=== PATIENT | male | born 1960 | race Caucasian/White ===

== ENCOUNTER → 2019-12-07 11:34 | Outpatient (BNVA) | payer OTHER, SELFPAY | PROVIDERS: PCP Internal Medicine; Referring Provider Internal Medicine; Visit Provider Nurse Practitioner Gerontology | DX: E11.21 Type 2 diabetes mellitus with diabetic nephropathy (principal); Z79.4 Long term (current) use of insulin; R80.9 Proteinuria, unspecified; I10 Essential (primary) hypertension; E78.5 Hyperlipidemia, unspecified | CPT/HCPCS: 99213 ==

== ENCOUNTER 2019-12-21 09:51 | Outpatient (REF) | payer OTHER, SELFPAY ==
[2019-12-21 11:25] LABS: Anion Gap 13 (12-20); Blood Urea Nitrogen 20 mg/dL (9-16); Calcium 9.3 mg/dL (8.4-10.2); Carbon Dioxide 30 mmol/L (22-29); Chloride 101 mmol/L (96-108); Estimated Glomerular Filt Rate 53; Potassium 4.5 mmol/l (3.3-5.1); Sodium 139 mmol/L (135-145)
== END 2019-12-21 09:52 | disposition home or self-care (01) ==
LOC: HO.LAB 09:51
PROVIDERS: Visit Provider Internal Medicine Hypertension Specialist
DX: E11.22 Type 2 diabetes mellitus with diabetic chronic kidney disease (principal); I12.9 Hypertensive chronic kidney disease with stage 1 through stage 4 chronic kidney disease, or unspecified chronic kidney disease; N18.9 Chronic kidney disease, unspecified
CPT/HCPCS: 80051; 82310; 82565; 84520

== ENCOUNTER 2019-12-26 14:23 | Outpatient (REF) | payer OTHER, SELFPAY ==
--- NOTE | 2019-12-26 | US_ITS ---
EXAMINATION: US RETROPERITONEAL LIMITED (RENAL ONLY) CLINICAL INFORMATION: Proteinuria COMPARISON: None TECHNIQUE: Real-time imaging of the kidneys. FINDINGS: RIGHT KIDNEY: 10.9 x 5.6 x 5.1 cm (SAG x AP x TRV). The kidney is normal in size, contour, and echogenicity. Renal cortical thickness is normal. No calculi or focal parenchymal lesions. No hydronephrosis. LEFT KIDNEY: 10.5 x 6.5 x 4.7 cm (SAG x AP x TRV). The kidney is normal in size, contour, and echogenicity. Renal cortical thickness is normal. No calculi or focal parenchymal lesions. No hydronephrosis. ADDITIONAL FINDINGS: There is a gallstone in the gallbladder. US/US renal BI IMPRESSION: Normal renal ultrasound.
== END 2019-12-26 14:24 | disposition home or self-care (01) ==
LOC: HO.US 14:23
PROVIDERS: Visit Provider Internal Medicine Hypertension Specialist
DX: E11.9 Type 2 diabetes mellitus without complications (principal); R80.9 Proteinuria, unspecified
CPT/HCPCS: 76775

== ENCOUNTER → 2020-03-20 08:40 | Outpatient (BNVA) | payer OTHER, SELFPAY | PROVIDERS: PCP Internal Medicine; Visit Provider Nurse Practitioner Gerontology ==

== ENCOUNTER 2020-03-28 08:27 | Outpatient (REF) | payer OTHER, SELFPAY ==
[2020-03-28 09:49] LABS: Anion Gap 14 (12-20); Blood Urea Nitrogen 25 mg/dL (9-16); Calcium 9.1 mg/dL (8.4-10.2); Carbon Dioxide 29 mmol/L (22-29); Chloride 102 mmol/L (96-108); Estimated Glomerular Filt Rate 57; Potassium 4.5 mmol/l (3.3-5.1); Sodium 140 mmol/L (135-145)
== END 2020-03-28 08:28 | disposition home or self-care (01) ==
LOC: HO.LAB 08:27
PROVIDERS: PCP Internal Medicine; Referring Provider Internal Medicine Hypertension Specialist; Visit Provider Nurse Practitioner Gerontology
DX: E11.9 Type 2 diabetes mellitus without complications (principal); R80.9 Proteinuria, unspecified; I13.10 Hypertensive heart and chronic kidney disease without heart failure, with stage 1 through stage 4 chronic kidney disease, or unspecified chronic kidney disease
CPT/HCPCS: 36415; 80051; 82310; 82565; 84520

== ENCOUNTER → 2020-06-24 13:20 | Outpatient (BNVA) | payer OTHER, SELFPAY | PROVIDERS: PCP Internal Medicine; Visit Provider Nurse Practitioner Gerontology | DX: E11.29 Type 2 diabetes mellitus with other diabetic kidney complication (principal); I10 Essential (primary) hypertension; E78.5 Hyperlipidemia, unspecified; R80.9 Proteinuria, unspecified | CPT/HCPCS: 82947; 99212 ==

== ENCOUNTER 2020-08-02 07:27 | Outpatient (REF) | payer OTHER, SELFPAY ==
[2020-08-02 08:23] LABS: MANUAL DIFF FLAG NO
[2020-08-02 08:30] LABS: Basophils Percent Auto 0.5 % (0-2); Eosinophils Absolute Auto 0.3 X10*3/uL (0.0-0.4); Eosinophils Percent Auto 4.3 % (0-4); Hematocrit 40.2 % (42-52); Hemoglobin 13.2 g/dl (14.0-18.0); Imm Gran Abs Auto 0.01 X10*3/uL (0.00-0.03); Imm Gran Pct Auto 0.2 % (0.0-0.4); Lymphocytes Absolute Auto 2.3 X10*3/uL (1.2-4.9); Lymphocytes Percent Auto 40.2 % (20-40); Mean Corpuscular HGB Conc 32.8 g/dl (31.0-36.0); Mean Corpuscular Hemoglobin 29.9 pg (27.0-33.0); Mean Platelet Volume 12.1 fL (9.4-12.4); Monocytes Absolute Auto 0.7 X10*3/uL (0.1-1.2); Monocytes Percent Auto 11.4 % (2-11); Neutrophils Absolute Auto 2.5 X10*3/uL (2.0-8.3); Neutrophils Percent Auto 43.4 % (45-73); Platelet Count 254 X10*3/uL (160-400); Red Blood Count 4.42 X10*6/uL (4.60-5.80); White Blood Count 5.8 X10*3/uL (4.8-10.8)
[2020-08-02 08:45] LABS: Estimated Average Glucose 166 mg/dL; Hemoglobin A1c % 7.4 %
[2020-08-02 08:46] LABS: Alanine Aminotransferase 24 U/L (0-40); Albumin Level 4.1 g/dL (3.5-5.0); Alkaline Phosphatase 88 U/L (39-117); Anion Gap 14 (12-20); Aspartate Amino Transferase 19 U/L (5-37); Bilirubin Total 0.4 mg/dL (0.0-1.0); Blood Urea Nitrogen 32 mg/dL (9-16); Calcium 9.8 mg/dL (8.4-10.2); Carbon Dioxide 27 mmol/L (22-29); Chloride 103 mmol/L (96-108); Cholesterol 182 mg/dL; Estimated Glomerular Filt Rate 36; Glucose Fasting 184 mg/dL (60-99); HDL Cholesterol 33 mg/dL; Potassium 4.8 mmol/L (3.3-5.1); Sodium 139 mmol/L (135-145); Total Protein 7.2 g/dL (6.5-8.0); Triglycerides 406 mg/dL
== END 2020-08-02 07:28 | disposition home or self-care (01) ==
LOC: HO.LAB 07:27
PROVIDERS: Nurse Practitioner Family; Nurse Practitioner Gerontology; PCP Internal Medicine; Visit Provider Internal Medicine
DX: Z01.818 Encounter for other preprocedural examination (principal); E78.5 Hyperlipidemia, unspecified; E11.29 Type 2 diabetes mellitus with other diabetic kidney complication
CPT/HCPCS: 36415; 80053; 80061; 83036; 85025

== ENCOUNTER → 2020-10-23 14:53 | Outpatient (BNVA) | payer OTHER, SELFPAY | PROVIDERS: PCP Internal Medicine; Visit Provider Nurse Practitioner Gerontology | DX: E11.29 Type 2 diabetes mellitus with other diabetic kidney complication (principal); E78.5 Hyperlipidemia, unspecified; I10 Essential (primary) hypertension; R80.9 Proteinuria, unspecified | CPT/HCPCS: 82947; 99212 ==

== ENCOUNTER 2020-11-07 08:23 | Outpatient (REF) | payer OTHER, SELFPAY ==
[2020-11-07 08:54] LABS: MANUAL DIFF FLAG NO
[2020-11-07 08:57] LABS: Basophils Percent Auto 0.5 % (0-2); Eosinophils Absolute Auto 0.3 X10*3/uL (0.0-0.4); Eosinophils Percent Auto 4.8 % (0-4); Hematocrit 41.3 % (42-52); Hemoglobin 13.5 g/dl (14.0-18.0); Imm Gran Abs Auto 0.02 X10*3/uL (0.00-0.03); Imm Gran Pct Auto 0.3 % (0.0-0.4); Lymphocytes Percent Auto 33.4 % (20-40); Mean Corpuscular HGB Conc 32.7 g/dl (31.0-36.0); Mean Corpuscular Hemoglobin 29.9 pg (27.0-33.0); Mean Corpuscular Volume 91.6 fL (80-98); Mean Platelet Volume 12.1 fL (9.4-12.4); Monocytes Absolute Auto 0.6 X10*3/uL (0.1-1.2); Monocytes Percent Auto 10.2 % (2-11); Neutrophils Absolute Auto 3.1 X10*3/uL (2.0-8.3); Neutrophils Percent Auto 50.8 % (45-73); Platelet Count 251 X10*3/uL (160-400); Red Blood Count 4.51 X10*6/uL (4.60-5.80); Red Cell Distribution Width 13.3 % (11.0-16.0); White Blood Count 6.1 X10*3/uL (4.8-10.8)
[2020-11-07 09:20] LABS: Creatinine Urine 53.29 mg/dL; Microalbum/Creatinine Ratio Ur 170.7 ug/mg cr
[2020-11-07 09:22] LABS: Alanine Aminotransferase 19 U/L (0-40); Albumin Level 4.1 g/dL (3.5-5.0); Alkaline Phosphatase 74 U/L (39-117); Anion Gap 12 (12-20); Aspartate Amino Transferase 19 U/L (5-37); Bilirubin Total 0.4 mg/dL (0.0-1.0); Blood Urea Nitrogen 28 mg/dL (9-16); Calcium 9.6 mg/dL (8.4-10.2); Carbon Dioxide 27 mmol/L (22-29); Chloride 105 mmol/L (96-108); Cholesterol 189 mg/dL; Estimated Glomerular Filt Rate 37; Glucose Random 198 mg/dL (60-115); HDL Cholesterol 26 mg/dL; Potassium 4.7 mmol/L (3.3-5.1); Sodium 139 mmol/L (135-145); Total Protein 6.9 g/dL (6.5-8.0); Triglycerides 417 mg/dL
[2020-11-11 13:01] LABS: Vitamin D 25-OH, D2 <4 ng/mL; Vitamin D 25-OH, D3 18 ng/mL; Vitamin D 25-OH, Total 18 ng/mL (30-100)
== END 2020-11-07 08:24 | disposition home or self-care (01) ==
LOC: HO.LAB 08:23
PROVIDERS: PCP Internal Medicine; Visit Provider Internal Medicine
DX: E11.29 Type 2 diabetes mellitus with other diabetic kidney complication (principal); D64.9 Anemia, unspecified; E78.5 Hyperlipidemia, unspecified; E55.9 Vitamin D deficiency, unspecified
CPT/HCPCS: 36415; 80053; 80061; 82043; 82306; 85025

== ENCOUNTER → 2021-03-04 14:28 | Outpatient (BNVA) | payer OTHER, SELFPAY | PROVIDERS: PCP Internal Medicine; Visit Provider Nurse Practitioner Gerontology | DX: E11.29 Type 2 diabetes mellitus with other diabetic kidney complication (principal); R80.9 Proteinuria, unspecified; I10 Essential (primary) hypertension; E78.5 Hyperlipidemia, unspecified | CPT/HCPCS: 82947; 83036; 99212 ==

== ENCOUNTER 2021-03-20 10:14 | Outpatient (REF) | payer OTHER, SELFPAY ==
[2021-03-20 10:39] LABS: MANUAL DIFF FLAG NO
[2021-03-20 11:10] LABS: Basophils Percent Auto 0.7 % (0-2); Eosinophils Absolute Auto 0.3 X10*3/uL (0.0-0.4); Eosinophils Percent Auto 5.4 % (0-4); Hematocrit 39.1 % (42.0-52.0); Hemoglobin 12.5 g/dl (14.0-18.0); Imm Gran Abs Auto 0.01 X10*3/uL (0.00-0.03); Imm Gran Pct Auto 0.2 % (0.0-0.4); Lymphocytes Absolute Auto 2.1 X10*3/uL (1.2-4.9); Lymphocytes Percent Auto 38.7 % (20-40); Mean Corpuscular Hemoglobin 29.6 pg (27.0-33.0); Mean Corpuscular Volume 92.7 fL (80.0-98.0); Mean Platelet Volume 11.8 fL (9.4-12.4); Monocytes Absolute Auto 0.6 X10*3/uL (0.1-1.2); Monocytes Percent Auto 11.2 % (2-11); Neutrophils Absolute Auto 2.3 x10*3/uL (2.0-8.3); Neutrophils Percent Auto 43.8 % (45-73); Platelet Count 284 X10*3/uL (160-400); Red Blood Count 4.22 X10*6/uL (4.60-5.80); White Blood Count 5.4 X10*3/uL (4.8-10.8)
[2021-03-20 11:59] LABS: Alanine Aminotransferase 17 U/L (0-40); Albumin Level 4.2 g/dL (3.5-5.0); Alkaline Phosphatase 65 U/L (39-117); Anion Gap 12 (12-20); Aspartate Amino Transferase 18 U/L (5-37); Bilirubin Total 0.5 mg/dL (0.0-1.0); Blood Urea Nitrogen 41 mg/dL (9-16); Calcium 9.9 mg/dL (8.4-10.2); Carbon Dioxide 27 mmol/L (22-29); Chloride 106 mmol/L (96-108); Cholesterol 199 mg/dL; Estimated Glomerular Filt Rate 34; Glucose Fasting 138 mg/dL (60-99); HDL Cholesterol 32 mg/dL; LDL Cholesterol Calculated 136 mg/dl; Potassium 4.5 mmol/L (3.3-5.1); Sodium 140 mmol/L (135-145); Total Protein 7.4 g/dL (6.5-8.0); Triglycerides 159 mg/dL
[2021-03-20 12:09] LABS: Creatinine Urine 162.38 mg/dL; Microalbum/Creatinine Ratio Ur 125.6 ug/mg cr
== END 2021-03-20 10:15 | disposition home or self-care (01) ==
LOC: HO.LAB 10:14
PROVIDERS: PCP Internal Medicine; Visit Provider Internal Medicine
DX: E11.29 Type 2 diabetes mellitus with other diabetic kidney complication (principal); E78.5 Hyperlipidemia, unspecified; D64.9 Anemia, unspecified
CPT/HCPCS: 36415; 80053; 80061; 82043; 85025

== ENCOUNTER 2021-08-04 07:05 | Outpatient (REF) | payer OTHER, SELFPAY ==
[2021-08-04 08:46] LABS: Alanine Aminotransferase 26 U/L (0-40); Albumin Level 4.3 g/dL (3.5-5.0); Alkaline Phosphatase 58 U/L (39-117); Anion Gap 14 (12-20); Aspartate Amino Transferase 34 U/L (5-37); Bilirubin Total 0.5 mg/dL (0.0-1.0); Blood Urea Nitrogen 39 mg/dL (9-16); Calcium 9.8 mg/dL (8.4-10.2); Carbon Dioxide 24 mmol/L (22-29); Chloride 106 mmol/L (96-108); Cholesterol 146 mg/dL; Estimated Glomerular Filt Rate 37; Glucose Fasting 90 mg/dL (60-99); HDL Cholesterol 35 mg/dL; LDL Cholesterol Calculated 89 mg/dl; Potassium 5.1 mmol/L (3.3-5.1); Sodium 139 mmol/L (135-145); Total Protein 7.3 g/dL (6.5-8.0); Triglycerides 112 mg/dL
[2021-08-04 09:01] LABS: Creatinine Urine 81.45 mg/dL; Microalbum/Creatinine Ratio Ur 125.2 ug/mg cr
== END 2021-08-04 07:06 | disposition home or self-care (01) ==
LOC: HO.LAB 07:05
PROVIDERS: PCP Internal Medicine; Visit Provider Internal Medicine
DX: E11.29 Type 2 diabetes mellitus with other diabetic kidney complication (principal); E78.5 Hyperlipidemia, unspecified
CPT/HCPCS: 36415; 80053; 80061; 82043

== ENCOUNTER → 2022-02-11 07:50 | Outpatient (REF) | payer OTHER, SELFPAY ==
--- NOTE | ~2022-02-11 | XR_ITS ---
EXAMINATION: XR CHEST CLINICAL INFORMATION: Dyspnea COMPARISON: Previous chest x-ray most recent December 2018 TECHNIQUE: 2 views of the chest were obtained. FINDINGS: The cardiac and mediastinal contours are stable. There are post-CABG changes. The lungs are clear. No pleural effusion or pneumothorax. Degenerative changes of the spine. Median sternotomy wires. XR/XR chest 2V IMPRESSION: No evidence for acute disease in the chest.
--- NOTE | ~2022-02-11 | XR_ITS ---
EXAMINATION: XR CERVICAL SPINE CLINICAL INFORMATION: Neck pain COMPARISON: None TECHNIQUE: 3 views of the cervical spine were obtained. FINDINGS: There is curvature of the lower cervical and upper thoracic spine to the left. Bone alignment is otherwise normal. No fracture or dislocation. Multilevel degenerative spondylosis from C4-C5 to C6-C7. Normal disc spaces. Normal prevertebral soft tissues. XR/XR cervical spine 3V IMPRESSION: Degenerative changes.
--- NOTE | 2022-02-11 07:55 | ECG_ITS ---
Test Reason : PRE OP Blood Pressure : / mmHG Vent. Rate : 066 BPM Atrial Rate : 066 BPM P-R Int : 180 ms QRS Dur : 094 ms QT Int : 410 ms P-R-T Axes : 063 -02 062 degrees QTc Int : 429 ms Normal sinus rhythm Inferior infarct , age undetermined Abnormal ECG When compared with ECG of 10-JUN-2015 22:19, Inferior infarct is now Present Nonspecific T wave abnormality, worse in Anterolateral leads Referred By: Edilia Banks Electronically Signed By:HEATHER NICHOLSON
[2022-02-11 08:07] LABS: MANUAL DIFF FLAG NO
[2022-02-11 08:17] LABS: Basophils Percent Auto 0.7 % (0-2); Eosinophils Absolute Auto 0.2 X10*3/uL (0.0-0.4); Eosinophils Percent Auto 3.9 % (0-4); Hematocrit 39.9 % (42.0-52.0); Imm Gran Abs Auto 0.01 X10*3/uL (0.00-0.03); Imm Gran Pct Auto 0.2 % (0.0-0.4); Lymphocytes Absolute Auto 2.8 X10*3/uL (1.2-4.9); Lymphocytes Percent Auto 49.3 % (20-40); Mean Corpuscular HGB Conc 32.6 g/dl (31.0-36.0); Mean Corpuscular Hemoglobin 29.8 pg (27.0-33.0); Mean Corpuscular Volume 91.5 fL (80.0-98.0); Mean Platelet Volume 11.5 fL (9.4-12.4); Monocytes Absolute Auto 0.6 X10*3/uL (0.1-1.2); Monocytes Percent Auto 11.3 % (2-11); Neutrophils Absolute Auto 1.9 x10*3/uL (2.0-8.3); Neutrophils Percent Auto 34.6 % (45-73); Platelet Count 246 X10*3/uL (160-400); Red Blood Count 4.36 X10*6/uL (4.60-5.80); Red Cell Distribution Width 13.4 % (11.0-16.0); White Blood Count 5.6 X10*3/uL (4.8-10.8)
[2022-02-11 09:09] LABS: Alanine Aminotransferase 19 U/L (0-40); Albumin Level 4.2 g/dL (3.5-5.0); Alkaline Phosphatase 88 U/L (39-117); Anion Gap 13 (12-20); Aspartate Amino Transferase 18 U/L (5-37); Bilirubin Total 0.3 mg/dL (0.0-1.0); Blood Urea Nitrogen 35 mg/dL (9-16); Calcium 9.4 mg/dL (8.4-10.2); Carbon Dioxide 26 mmol/L (22-29); Chloride 108 mmol/L (96-108); Cholesterol 174 mg/dL; Estimated Glomerular Filt Rate 33; Glucose Fasting 163 mg/dL (60-99); HDL Cholesterol 31 mg/dL; LDL Cholesterol Calculated 90 mg/dl; Potassium 4.5 mmol/L (3.3-5.1); Sodium 142 mmol/L (135-145); Triglycerides 268 mg/dL; Vitamin D 25-OH Total 19.2 ng/mL (>30)
[2022-02-11 09:55] LABS: Creatinine Urine 182.14 mg/dL; Microalbum/Creatinine Ratio Ur 110.9 ug/mg cr
== END ==
LOC: HO.CARD 07:50
PROVIDERS: PCP Internal Medicine; Visit Provider Internal Medicine
DX: Z01.818 Encounter for other preprocedural examination (principal); E78.5 Hyperlipidemia, unspecified; E11.9 Type 2 diabetes mellitus without complications; E55.9 Vitamin D deficiency, unspecified; D64.9 Anemia, unspecified; I21.3 ST elevation (STEMI) myocardial infarction of unspecified site; N18.32 Chronic kidney disease, stage 3b; M54.2 Cervicalgia
CPT/HCPCS: 36415; 71046; 72040; 80053; 80061; 82043; 82306; 85025; 93005

== ENCOUNTER → 2022-02-24 13:39 | Outpatient (BNVA) | payer OTHER, SELFPAY | PROVIDERS: PCP Internal Medicine; Visit Provider Internal Medicine | DX: Z01.810 Encounter for preprocedural cardiovascular examination (principal); I25.10 Atherosclerotic heart disease of native coronary artery without angina pectoris; I21.3 ST elevation (STEMI) myocardial infarction of unspecified site; I25.5 Ischemic cardiomyopathy; I10 Essential (primary) hypertension; E11.29 Type 2 diabetes mellitus with other diabetic kidney complication; Z87.891 Personal history of nicotine dependence; Z98.890 Other specified postprocedural states; Z95.1 Presence of aortocoronary bypass graft | CPT/HCPCS: 99202 ==

== ENCOUNTER → 2022-02-27 08:26 | Outpatient (REF) | payer OTHER, SELFPAY ==
--- NOTE | 2022-02-27 08:29 | CA_ITS ---
Transthoracic Echocardiogram Patient (Last, First, Middle): Hang Fowler J Gender: Male Date of : 1960 Age: 61 Procedure Date: 02/27/2022 Procedure Type: Transthoracic Echocardiogram Location: OP Height: 165.1 cm Weight: 79.38 kg BSA: 1.87 m2 Heart Rate: bpm BP: 122 / 60 mmHg Pharmacy Coordinator: Referring MD: Cosmo Del Cid MD Supervisor [employer]: Tahir Bravo MD Symptoms: I25.10 - Atherosclerotic heart disease of [place] coronary artery without... Study Quality: Adequate with Contrast ECG Rhythm: Sinus Conclusions: - 1. Normal LV systolic function with impaired relaxation filling pattern with suggestion of wall motion abnormality consistent underlying coronary artery disease 2. Mildly dilated right ventricle with reduced RV systolic function 3. Normal cardiac valvular Doppler 4. Normal RV systolic pressure 5. No gross pericardial effusion Findings Procedure Information Contrast agent, definity, is being given per protocol without apparent complications. Left Ventricle Normal left ventricular size, thickness, and systolic function. The visually estimated ejection fraction is between 60-65%. Spectral Doppler is indicative of an impaired relaxation filling pattern. Wall Motion Rest Echo Findings The basal inferior and basal inferoseptal segments are akinetic. All other scored wall segments showed normal motion. Right Ventricle Mildly increased right ventricular cavity size. There is mild to moderately decreased right ventricular systolic function. Atria The left atrium is normal in size. Interatrial shunt cannot be excluded. The right atrium was not well visualized. Aortic Valve The aortic valve structure and function is likely normal. There is no aortic valve stenosis. There is no aortic valve regurgitation. Mitral Valve Normal mitral valve structure and function. There is trace mitral valve regurgitation. There is no mitral valve stenosis. Pulmonic Valve The pulmonic valve was not well visualized. Tricuspid Valve Likely normal tricuspid valve structure and function. There is trace tricuspid valve regurgitation. The right ventricular systolic pressure is normal. The right ventricular systolic pressure is 13 mmHg. Normal right atrial pressure. Great Vessels All visible segments of the aorta are normal in size. The pulmonary artery was not well visualized. Venous The inferior vena cava is normal in size and collapses greater than 50% with inspiration. Pericardium/Pleural There is no evidence of pericardial effusion. Prior Study Comparison No prior study available for comparison. Measurements 2D Linear Measurements IVSd: 1.09 0.6-0.9/0.6-1.0 cm LVIDd: 4.67 3.9-5.3/4.2-5.9 cm LVIDd Index: 2.50 2.4-3.2/2.2-3.1 cm/m2 LVIDs: 3.15 2.0-3.6 cm LVPWd: 1.07 0.7-1.1 cm Ao Root: 3.60 2.1-3.5 cm LA Diam: 3.10 2.7-3.8/3.0-4.0 cm LAIDs Index: 1.66 1.5-2.3 cm/m2 LV Mass: 225.44 67-162/88-224 g LV Mass Index: 120.55 43-95/49-115 g/m2 LVOT Diam: 2.30 3.0+(-)1.3 cm 2D Systolic Function EF 4C: 69.30 >55% EF 2C: 68.10 >55% Mitral Valve MV Pk E: 0.43 MV PK A: 0.75 MV Decel Time: 121.00 E/A: 0.60 E'Lateral: 8.05 E'Medial: 5.00 E/E' Med: 8.60 E/E' Lat: 5.30 PHT: 36.00 MVA PHT: 6.11 Decel Sebastian: 3.53 Aortic Valve AoV Pk Rito: 1.50 AoV Mn Rito: 0.81 AoV VTI: 0.25 AoV Pk Grad: 9.00 Aov Mn Grad: 3.00 ADRIAN Cont.VTI: 3.16 LVOT LVOT Pk Rito: 1.06 LVOT Mn Rito: 0.61 LVOT VTI: 0.19 LVOT Pk Grad: 4.00 LVOT Mn Grad: 2.00 LVOT Diam: 2.30 LVOT Area: 4.15 Diastolic Function MV Pk E: 0.43 MV Pk A: 0.75 E/A: 0.60 E'Medial: 5.00 E/E' Med: 8.60 E' Laterial: 8.05 E/E' Lat: 5.30 Right Ventricle TAPSE (mm): 13.00 TVS' Rito: 6.00 Tricuspid Valve TR Pk Rito: 1.57 TR Pk Grad: 10.00 RA Press: 3.00 RVSP: 13.00 Great Vessels Aorta Ao Root-2D: 3.60 2.0-3.7 cm Ao Asc: 3.30 2.1-3.4 cm Pulmonary Valve PV Pk Rito: 0.94 Peak PV Grad: 4.00 Updated in Other Vendor System with Status of Final Tahir Bravo MD electronically signed on 02/28/2022 3:06:47 PM with status of Final
== END ==
LOC: HO.CARD 08:26
PROVIDERS: PCP Internal Medicine; Visit Provider Internal Medicine
DX: I21.3 ST elevation (STEMI) myocardial infarction of unspecified site (principal); I25.10 Atherosclerotic heart disease of native coronary artery without angina pectoris
CPT/HCPCS: 93306; Q9957

== ENCOUNTER 2022-06-18 11:10 | Outpatient (REF) | payer OTHER, SELFPAY ==
[2022-06-18 12:23] LABS: Alanine Aminotransferase 20 U/L (0-40); Albumin Level 4.4 g/dL (3.5-5.0); Alkaline Phosphatase 58 U/L (39-117); Anion Gap 10 (12-20); Aspartate Amino Transferase 16 U/L (5-37); Bilirubin Total 0.6 mg/dL (0.0-1.0); Blood Urea Nitrogen 28 mg/dL (9-16); Calcium 9.4 mg/dL (8.4-10.2); Carbon Dioxide 25 mmol/L (22-29); Chloride 110 mmol/L (96-108); Cholesterol 163 mg/dL; Estimated Glomerular Filt Rate 35; Glucose Fasting 159 mg/dL (60-99); HDL Cholesterol 33 mg/dL; LDL Cholesterol Calculated 106 mg/dl; Potassium 5.1 mmol/L (3.3-5.1); Sodium 140 mmol/L (135-145); Triglycerides 120 mg/dL
[2022-06-18 12:40] LABS: Vitamin D 25-OH Total 17.2 ng/mL (>30)
[2022-06-18 13:21] LABS: Creatinine Urine 180.59 mg/dL
== END 2022-06-18 11:11 | disposition home or self-care (01) ==
LOC: HO.LAB 11:10
PROVIDERS: PCP Internal Medicine; Visit Provider Internal Medicine
DX: E78.5 Hyperlipidemia, unspecified (principal); E11.22 Type 2 diabetes mellitus with diabetic chronic kidney disease; N18.32 Chronic kidney disease, stage 3b; E55.9 Vitamin D deficiency, unspecified
CPT/HCPCS: 36415; 80053; 80061; 82043; 82306

== ENCOUNTER 2022-11-19 07:23 | Outpatient (REF) | payer OTHER, SELFPAY ==
[2022-11-19 09:52] LABS: Alanine Aminotransferase 24 U/L (0-40); Albumin Level 4.3 g/dL (3.5-5.0); Alkaline Phosphatase 68 U/L (39-117); Anion Gap 14 (12-20); Aspartate Amino Transferase 20 U/L (5-37); Bilirubin Total 0.5 mg/dL (0.0-1.0); Blood Urea Nitrogen 31 mg/dL (9-16); Calcium 9.6 mg/dL (8.4-10.2); Carbon Dioxide 25 mmol/L (22-29); Chloride 107 mmol/L (96-108); Cholesterol 130 mg/dL (<200); Estimated Glomerular Filt Rate 39; Glucose Fasting 146 mg/dL (60-99); HDL Cholesterol 33 mg/dL (>40); LDL Cholesterol Calculated 65 mg/dL (<100); Potassium 4.2 mmol/L (3.3-5.1); Sodium 142 mmol/L (135-145); Total Protein 7.5 g/dL (6.5-8.0); Triglycerides 164 mg/dL (<150)
[2022-11-19 10:12] LABS: Vitamin D 25-OH Total 32.4 ng/mL (>30)
[2022-11-19 11:15] LABS: Creatinine Urine 88.79 mg/dL; Microalbum/Creatinine Ratio Ur 57.4 ug/mg cr (<30)
[2022-11-27 13:44] LABS: NT-proBNP 188 pg/mL (<125)
== END 2022-11-19 07:24 | disposition home or self-care (01) ==
LOC: HO.LAB 07:23
PROVIDERS: PCP Internal Medicine; Visit Provider Internal Medicine
DX: E55.9 Vitamin D deficiency, unspecified (principal); I25.5 Ischemic cardiomyopathy; E11.9 Type 2 diabetes mellitus without complications; E78.5 Hyperlipidemia, unspecified
CPT/HCPCS: 36415; 80053; 80061; 82043; 82306; 82570; 83880

== ENCOUNTER 2022-11-24 10:38 | Outpatient (AMB) | payer OTHER, SELFPAY ==
--- NOTE | 2022-11-24 10:40 | A.OFFPC_ITS ---
Vital Signs 11/24/22 10:41 11/24/22 12:13 Height 5 ft 6 in Weight 176 lb BMI 28.4 BP 140/84 H 138/84 Blood Pressure Location Lt brachial Lt brachial Position Sitting Sitting Intake Visit Reasons: 5 month f/u Intake Note: Patient here for a 5 month follow up DM [employer] Developer Required: No Accompanied by: Self / Same As Patient Allergies lisinopril Adverse Reaction (Intermediate, Verified 11/24/22 11:07) cough Medication List - Last Reconciled 11/24/22 by Edilia Banks MD acetazolamide 250 mg PO TID 30 days aspirin 81 mg PO DAILY 90 days atorvastatin 80 mg PO BEDTIME 90 days blood sugar diagnostic (FreeStyle Lite Strips) As directed three times a day blood-glucose meter (FreeStyle [place] Lite kit) As directed brimonidine 0.2% drps ophthalmic (eye) cholecalciferol (vitamin D3) 50 mcg PO DAILY 90 days dorzolamide 2% 1 drp ophthalmic (eye) TID fenofibrate 160 mg PO DAILY 90 days furosemide 40 mg PO DAILY 90 days hydrocortisone 1% (Anti-Itch (hydrocortisone)) 1 appl topical TID PRN 2 weeks insulin lispro (Humalog KwikPen (U-100) Insulin) 8 - 12 units (0.08 - 0.12 mL) subcut TID 30 days lancets (FreeStyle Lancets) As directed three time a day lancing device As directed latanoprost 0.005% 1 drp ophthalmic (eye) BEDTIME metformin 850 mg PO BID 90 days metoprolol succinate ER 100 mg PO DAILY 90 days timolol maleate 0.5% 1 drp ophthalmic (eye) BID Tobacco use date assessed: 03/09/22 Dental Screening Dental Screen Date: 11/24/22 Did you have a dental visit in the last 12 months?: Yes Did you have a dental problem in the last 6 months where you did not have access to dental care?: No Was dental information given to patient?: Patient has dentist HPI HPI Comments History of Present Illness Details This is a 61-year-old male with diabetes mellitus type 2, chronic kidney disease stage III, hypertension, hyperlipidemia and atherosclerotic cardiovascular disease that comes today for follow-up on his conditions. A1c has improved and is close to goal. GFR has also improved but still will be referred to Nephrology. LDL within goal. Blood pressure borderline normal to elevated. He is compliant with medications. Had a STEMI few years ago and since then has had more fatigue and tiredness aggravated by activity. Since then he has not been able to work. [facility] Medical History (Updated 06/23/22 @ 14:47 by Edilia Banks MD) Pneumonia due to COVID-19 virus Pre-op examination Positive for macroalbuminuria Ischemic cardiomyopathy STEMI (ST elevation myocardial infarction) Type 2 diabetes mellitus with other diabetic kidney complication Proteinuria Hyperlipidemia LDL goal <70 Essential hypertension Surgical History History of open heart surgery Hx of CABG Family History Father CVD (cardiovascular disease) HTN (hypertension) Diabetes Mother CVD (cardiovascular disease) Diabetes Brother Diabetes HTN (hypertension) CVD (cardiovascular disease) Social History Household Members: None Housing: Apartment Alcohol intake: current Alcohol intake frequency: holidays/special occasions only Alcohol type: wine Patient Tobacco Use Status: Former Tobacco user Tobacco use type: Cigarette e-Cigarette/Vaping Use: Never Used Second Hand Smoke Exposure: No service: No Current occupational status: unemployed Cognitive needs: No Hearing needs: No Vision needs: Yes Questionnaire Thrive Questionnaire Date Thrive assessed: 03/09/22 LORENZO-7 AMB Questionnaire LORENZO-7 Date LORENZO - 7 assessed: 03/09/22 Source: Developed by Drs. Abram Whitt, China Bentley, Ignacio Ma and colleagues, with an educational rommel from [employer]. Review of Systems Const All systems reviewed & are unremarkable except as noted in HPI and below Eyes Reports no additional complaints, Denies change in vision and Denies other visual disturbances Card Denies chest pain at rest, Denies chest pain with activity, Denies edema, Denies irregular heart rhythm, Denies claudication, Denies dyspnea, Denies dyspnea on exertion, Denies orthopnea, Denies paroxysmal nocturnal dyspnea and Denies slow heart rate Resp Denies cough, Denies dyspnea and Denies dyspnea on exertion GI Denies abdominal pain, Denies change in bowel habits, Denies excessive flatus, Denies nausea and Denies vomiting Denies urinary hesitancy, Denies urinary incontinence and Denies urinary urgency Musc Denies abnormal gait, Denies atrophy, Denies deformity and Denies limited range of motion Skin/Breast Denies bleeding lesions, Denies changing lesions and Denies rash Neuro Denies abnormal gait and Denies lack of coordination Physical exam (Primary Care) Vital Signs: Last Vital Signs BP 140/84 H 11/24/22 10:41 BMI result Body Mass Index 28.4 Tobacco/Smoking Status: Tobacco use Status Tobacco use date assessed 03/09/22 11/24/22 10:40 Patient Tobacco Use Status Former Tobacco user 11/24/22 10:40 Tobacco use type Cigarette 11/24/22 10:40 e-Cigarette/Vaping Use Never Used 11/24/22 10:40 Thrive Assessment: Date of Thrive Assessment Date Thrive assessed 03/09/22 11/24/22 10:40 Eyes General: appearance normal, both eyes and all related structures Eyelids: Yes eyelids normal Conjunctivae: conjunctivae normal Neck Neck: Yes normal visual inspection and Yes supple Resp Effort & Inspection: normal respiratory effort Auscultation: clear to auscultation bilaterally Cardio Jugular venous distension: no JVD Rate: regular rate Rhythm: regular rhythm Heart sounds: S1 normal heart sound present and S2 normal heart sound present Extrem General: Yes full ROM Results AMB Hemoglobin A1c AMB Hemoglobin A1c 7.2 % Last Edit by ASHA Aguilera on 11/24/22 10:5 5 Results Reviewed Results Reviewed: Laboratory Last Values Hgb A1c (Clinic) 7.2 % (4.0-6.0) H 11/24/22 10:41 Assessment and Plan Assessment & Plan (1) Type 2 diabetes mellitus with other diabetic kidney complication: Code(s): E11.29 - Type 2 diabetes mellitus with other diabetic kidney complication Plan: Continue insulin. A1c goal is equal or less than 7%. (2) CKD (chronic kidney disease) stage 3, GFR 30-59 ml/min: Code(s): N18.30 - Chronic kidney disease, stage 3 unspecified Qualifiers: Chronic kidney disease stage 3 subtype: stage 3b (GFR 30-44) Qualified Code(s): N18.32 - Chronic kidney disease, stage 3b Plan: Follow-up with Nephrology. Avoid NSAIDs. Keep blood pressure less than 130/80. (3) Hyperlipidemia LDL goal <70: Code(s): E78.5 - Hyperlipidemia, unspecified Plan: Continue statins. LDL goal is less than 70. (4) Atherosclerotic cardiovascular disease: Code(s): I25.10 - Atherosclerotic heart disease of [place] coronary artery without angina pectoris Plan: Continue aspirin for secondary prophylaxis. Patient not able to work. Follow- up with Cardiology. Orders: Orders AMB Hemoglobin A1c Today E11.29 - Type 2 diabetes mellitus with other diabetic kidney complication Lipid Panel 7 Months E78.5 - Hyperlipidemia, unspecified Microalbumin, Random (w Creat) 7 Months E11.9 - Type 2 diabetes mellitus without complications Comprehensive [place]. Panel Fast 7 Months N18.30 - Chronic kidney disease, stage 3 unspecified Referrals Nephrology Referral N18.30 - Chronic kidney disease, stage 3 unspecified Medications: Refilled hydrocortisone 1% (Anti-Itch (hydrocortisone)) 1 appl topical TID 2 weeks PRN 28.4 grams 0RF skin irritation metoprolol succinate ER 100 mg PO DAILY 90 days 90 tabs 1RF Coding Level of Care Code Est Pt Level 4 (29047) Diagnoses Type 2 diabetes mellitus with other diabetic kidney complication E11.29 Stage 3b chronic kidney disease N18.32 Chronic kidney disease stage 3 subtype: stage 3b (GFR 30-44) Hyperlipidemia LDL goal <70 E78.5 Atherosclerotic cardiovascular disease I25.10 Time Spent (min) 22
[2022-11-24 10:41] VITALS: BP 140/84; BMI 28.4
[2022-11-24 12:13] VITALS: BP 138/84
== END 2022-11-24 11:13 | disposition home or self-care (01) ==
PROVIDERS: Visit Provider Internal Medicine
DX: E11.22 Type 2 diabetes mellitus with diabetic chronic kidney disease (principal); N18.32 Chronic kidney disease, stage 3b; E78.5 Hyperlipidemia, unspecified; I25.10 Atherosclerotic heart disease of native coronary artery without angina pectoris
CPT/HCPCS: 83036; 99214

== ENCOUNTER 2023-12-01 11:44 | Outpatient (REF) | payer MEDICARE, MEDICAID, SELFPAY ==
[2023-12-01 13:23] LABS: Alanine Aminotransferase 14 U/L (0-40); Alkaline Phosphatase 34 U/L (39-117); Anion Gap 10 (12-20); Aspartate Amino Transferase 13 U/L (5-37); Bilirubin Total 0.4 mg/dL (0.0-1.0); Blood Urea Nitrogen 23 mg/dL (9-16); Carbon Dioxide 20 mmol/L (22-29); Chloride 114 mmol/L (96-108); Cholesterol 216 mg/dL (<200); Estimated Glomerular Filt Rate 40; Glucose Fasting 101 mg/dL (60-99); HDL Cholesterol 35 mg/dL (>40); LDL Cholesterol Calculated 157 mg/dL (<100); Potassium 4.3 mmol/L (3.3-5.1); Sodium 140 mmol/L (135-145); Total Protein 6.9 g/dL (6.5-8.0); Triglycerides 124 mg/dL (<150)
[2023-12-01 13:32] LABS: Creatinine Urine 119.36 mg/dL; Microalbum/Creatinine Ratio Ur 122.3 ug/mg cr (<30)
== END 2023-12-01 11:45 | disposition home or self-care (01) ==
LOC: HO.LAB 11:44
PROVIDERS: PCP Internal Medicine; Visit Provider Internal Medicine
DX: E11.22 Type 2 diabetes mellitus with diabetic chronic kidney disease (principal); N18.30 Chronic kidney disease, stage 3 unspecified; E78.5 Hyperlipidemia, unspecified
CPT/HCPCS: 36415; 80053; 80061; 82043; 82570

== ENCOUNTER 2023-12-08 14:21 | Outpatient (AMB) | payer MEDICARE, MEDICAID, SELFPAY ==
--- NOTE | 2023-12-08 14:23 | A.OFFPC_ITS ---
Vital Signs 12/08/23 14:25 Height 5 ft 6 in Weight 173 lb BMI 27.9 BP 132/80 Blood Pressure Location Lt brachial Position Sitting Intake Visit Reasons: annual Intake Note: Patient here for an Annual Physical Exam [employer] Person Required: No Accompanied by: Self / Same As Patient Allergies lisinopril Adverse Reaction (Intermediate, Verified 12/08/23 14:45) cough Medication List - Last Reconciled 12/08/23 by Edilia Banks MD acetazolamide 250 mg PO TID 30 days aspirin 81 mg PO DAILY 90 days atorvastatin 80 mg PO BEDTIME 90 days blood sugar diagnostic (FreeStyle Lite Strips) As directed three times a day blood-glucose meter (FreeStyle [place] Lite kit) As directed brimonidine 0.2% drps ophthalmic (eye) cholecalciferol (vitamin D3) 50 mcg PO DAILY 90 days dorzolamide 2% 1 drp ophthalmic (eye) TID furosemide 40 mg PO DAILY 90 days hydrocortisone 1% (Anti-Itch (hydrocortisone)) 1 appl topical TID PRN 2 weeks insulin lispro (Humalog KwikPen (U-100) Insulin) 8 - 12 units (0.08 - 0.12 mL) subcut TID 30 days lancets (FreeStyle Lancets) As directed three time a day lancing device As directed latanoprost 0.005% 1 drp ophthalmic (eye) BEDTIME metformin 850 mg PO BID 90 days metoprolol succinate ER 100 mg PO DAILY 90 days timolol maleate 0.5% 1 drp ophthalmic (eye) BID Tobacco use date assessed: 12/08/23 Dental Screening Dental Screen Date: 12/08/23 Did you have a dental visit in the last 12 months?: No Did you have a dental problem in the last 6 months where you did not have access to dental care?: No Was dental information given to patient?: Patient has dentist HPI HPI Comments History of Present Illness Details This is a 62-year-old male with diabetes mellitus type 2 on chronic kidney disease stage 3 that comes for his physical exam. A1c within goal. GFR has not significantly change in a year. Colonoscopy done in [facility] less than 10 years ago was normal. He has glaucoma and did not feel that ophthalmology was doing anything for him only to refill that eye drops. I explained to him that ophthalmology measure his eye pressure every time he goes and needs to be monitor. I will refill eyedrops only for 90 days and he will make an appointment with Ophthalmology for follow his glaucoma. Patient understood and agree. [facility] Medical History (Updated 12/08/23 @ 19:01 by Edilia Banks MD) Pneumonia due to COVID-19 virus Pre-op examination Positive for macroalbuminuria Ischemic cardiomyopathy STEMI (ST elevation myocardial infarction) Type 2 diabetes mellitus with other diabetic kidney complication Proteinuria Hyperlipidemia LDL goal <70 Essential hypertension Surgical History History of open heart surgery Hx of CABG Family History Father CVD (cardiovascular disease) HTN (hypertension) Diabetes Mother CVD (cardiovascular disease) Diabetes Brother Diabetes HTN (hypertension) CVD (cardiovascular disease) Social History Household Members: None Housing: Apartment Alcohol intake: current Alcohol intake frequency: holidays/special occasions only Alcohol type: wine Patient Tobacco Use Status: Former Tobacco user Tobacco use type: Cigarette e-Cigarette/Vaping Use: Never Used Second Hand Smoke Exposure: No service: No Current occupational status: unemployed Cognitive needs: No Hearing needs: No Vision needs: Yes Questionnaire PHQ-9 Over the last 2 weeks, how often have you been bothered by any of the following problems? 1. Little interest or pleasure in doing things: not at all 2. Feeling down, depressed, or hopeless: not at all 3. Trouble falling or staying asleep, or sleeping too much: not at all 4. Feeling tired or having little energy: not at all 5. Poor appetite or overeating: not at all 6. Feeling bad about yourself - or that you are a failure or have let yourself or your family down: not at all 7. Trouble concentrating on things, such as reading the newspaper or watching television: not at all 8. Moving or speaking so slowly that other people could have noticed. Or the opposite - being so fidgety or restless that you have been moving around a lot more than usual: not at all 9. Thoughts that you would be better off or of hurting yourself in some way: not at all Total score: 0 Depression Screening Interpretation: Negative Depression Screening Done: Yes 14856 - PHQ-9 Billing: Yes Source: Developed by Drs. Abram Whitt, Cihna Bentley, Ignacio Ma and colleagues, with an educational rommel from [employer]. Thrive Questionnaire Date Thrive assessed: 12/08/23 I am a: Patient What is your living situation today?: I have a steady place to live Within the past 12 months, did the food you bought not last and you didn't have the money to get more?: Never true Within the past 12 months, did you worry whether your food would run out before you got money to buy more?: Never true Do you have trouble paying for medicines?: No Do you have trouble getting transportation to medical appointments?: No Do you have trouble paying your heating and electricity bill?: No Do you have trouble taking care of your child, family member or friend?: No Do you have trouble with day-to-day activities such as bathing, preparing meals, shopping, managing finances, etc.?: No Are you currently unemployed and looking for a job?: No Are you interested in more education?: No Please select the resources that you would like help with: None Currently or been in a relationship where the following occur: No concerns reported THRIVE Score: 0 AUDIT C Alcohol Use Questionnaire (AUDIT-C) 1. How often do you have a drink containing alcohol?: Monthly or less 2. How many drinks containing alcohol do you have on a typical day when you are drinking?: 1 or 2 3. How often do you have six or more drinks on one occasion?: Never Total Score: 1 LORENZO-7 AMB Questionnaire LORENZO-7 Date LORENZO - 7 assessed: 12/08/23 Feeling nervous, anxious, or on edge: 0 = Not at all Not being able to stop or control worryin = Not at all Worrying too much about different things: 0 = Not at all Trouble relaxin = Not at all Being so restless that it is hard to sit still: 0 = Not at all Becoming easily annoyed or irritable: 0 = Not at all Feeling afraid as if something awful might happen: 0 = Not at all Total LORENZO-7 score (0-4 normal; 5-9 mild; 10-14 moderate; 15-21 severe): 0 Source: Developed by Drs. Abram Whitt, China Bentley, Ignacio Ma and colleagues, with an educational rommel from [employer]. LORENZO-7 Assessment Billing LORENZO-7 Assessment Tool: LORENZO-7 Assessment 56640 Review of Systems Const All systems reviewed & are unremarkable except as noted in HPI and below Card Denies chest pain at rest, Denies chest pain with activity, Denies edema, Denies irregular heart rhythm, Denies claudication, Denies dyspnea, Denies dyspnea on exertion, Denies orthopnea, Denies paroxysmal nocturnal dyspnea and Denies slow heart rate Resp Denies cough, Denies dyspnea and Denies dyspnea on exertion GI Denies abdominal pain, Denies change in bowel habits, Denies excessive flatus, Denies nausea and Denies vomiting Denies urinary hesitancy, Denies urinary incontinence and Denies urinary urgency Musc Denies abnormal gait, Denies atrophy, Denies deformity and Denies limited range of motion Skin/Breast Denies bleeding lesions, Denies changing lesions and Denies rash Neuro Denies abnormal gait and Denies lack of coordination Physical exam (Primary Care) Vital Signs: Last Vital Signs BP 132/80 12/08/23 14:25 BMI result Body Mass Index 27.9 Tobacco/Smoking Status: Tobacco use Status Tobacco use date assessed 12/08/23 12/08/23 14:31 Patient Tobacco Use Status Former Tobacco user 12/08/23 14:31 Tobacco use type Cigarette 12/08/23 14:31 e-Cigarette/Vaping Use Never Used 12/08/23 14:31 PHQ-9: PHQ-9 Score PHQ-9: Total score 0 12/08/23 14:48 Depression Screening Interpretation: Negative Thrive Assessment: Date of Thrive Assessment Date Thrive assessed 12/08/23 12/08/23 14:31 Currently or been in a relationship where the following occur: No concerns reported HENMT Head: Yes normal to inspection, Yes normocephalic and Yes atraumatic Ears: external ears normal Eyes General: appearance normal, both eyes and all related structures Eyelids: Yes eyelids normal Conjunctivae: conjunctivae normal Neck Neck: Yes normal visual inspection and Yes supple Resp Effort & Inspection: normal respiratory effort Auscultation: clear to auscultation bilaterally Cardio Jugular venous distension: no JVD Rate: regular rate Rhythm: regular rhythm Heart sounds: S1 normal heart sound present and S2 normal heart sound present GI Inspection: Yes normal to inspection Palpation (GI): Soft to palpation and nontender Auscultation: normal bowel sounds Skin General skin exam: no rashes or lesions noted Neuro General: no focal motor deficits Extrem General: Yes full ROM Psych Appearance: grossly normal Office Procedures Flu Questionnaire Does the patient have a severe egg allergy?: No Results AMB Hemoglobin A1c AMB Hemoglobin A1c 6.2 % Last Edit by ASHA Aguilera on 12/08/23 14:3 8 Immunizations Fluarix Triv [id number] (PF) 45 mcg (15 mcg x 3)/0.5 mL IM syringe Performing Provider: Edilia Banks MD [facility] Documented (not given) by: ASHA Aguilera on 12/08/23 14:31 Reason Not Given: Patient Refused Results Reviewed Results Reviewed: Laboratory Last Values Hgb A1c (Clinic) 6.2 % (4.0-6.0) H 12/08/23 14:22 Coding Level of Care Code Est Pt Prev Care 40-64y(27164) Diagnoses Physical exam Z00.00 Type 2 diabetes mellitus with other diabetic kidney complication E11.29 Stage 3b chronic kidney disease N18.32 Chronic kidney disease stage 3 subtype: stage 3b (GFR 30-44) Additional Codes LORENZO-7 Assessment Billing - LORENZO-7 Assessment Tool: LORENZO-7 Assessment 80098 ([id number]) Time Spent (min) 31 Assessment & Plan Assessment & Plan (1) Physical exam: Code(s): Z00.00 - Encounter for general adult medical examination without abnormal findings Category: Medical Plan: Repeat in a year. (2) Type 2 diabetes mellitus with other diabetic kidney complication: Code(s): E11.29 - Type 2 diabetes mellitus with other diabetic kidney complication Category: Medical Plan: Continue metformin. A1c goal is equal or less than 7%. (3) CKD (chronic kidney disease) stage 3, GFR 30-59 ml/min: Code(s): N18.30 - Chronic kidney disease, stage 3 unspecified Category: Medical Qualifiers: Chronic kidney disease stage 3 subtype: stage 3b (GFR 30-44) Qualified Code(s): N18.32 - Chronic kidney disease, stage 3b Plan: Avoid NSAIDs. Keep blood pressure less than 130/80. Orders: Orders Influenza [id number] Immunization Today Z23 - Encounter for immunization Microalbumin, Random (w Creat) 6 Months R80.9 - Proteinuria, unspecified AMB Hemoglobin A1c Today E11.29 - Type 2 diabetes mellitus with other diabetic kidney complication Lipid Panel 6 Months E78.5 - Hyperlipidemia, unspecified Comprehensive [place]. Panel Fast 6 Months Z00.00 - Encounter for general adult medical examination without abnormal findings Medications: Changed From latanoprost 0.005% 1 drp ophthalmic (eye) BEDTIME To latanoprost 0.005% 1 drp ophthalmic (eye) BEDTIME 7.5 mL 0RF 90 days From brimonidine 0.2% ophthalmic (eye) To brimonidine 0.2% 1 drp ophthalmic (eye) ONCE 10 mL 0RF 90 days From dorzolamide 2% 1 drp ophthalmic (eye) TID To dorzolamide 2% 1 drp ophthalmic (eye) TID 10 mL 0RF 90 days Refilled atorvastatin 80 mg PO BEDTIME 90 tabs 2RF 90 days
[2023-12-08 14:25] VITALS: BP 132/80; BMI 27.9
== END 2023-12-08 15:07 | disposition home or self-care (01) ==
LOC: HO.HMCH 14:21
PROVIDERS: PCP Internal Medicine; Visit Provider Internal Medicine
DX: Z00.00 Encounter for general adult medical examination without abnormal findings (principal); E11.29 Type 2 diabetes mellitus with other diabetic kidney complication; N18.32 Chronic kidney disease, stage 3b

== ENCOUNTER → 2023-12-08 14:21 | Outpatient (BNVA) | payer MEDICARE, MEDICAID, SELFPAY | PROVIDERS: PCP Internal Medicine; Visit Provider Internal Medicine | DX: Z00.01 Encounter for general adult medical examination with abnormal findings (principal); I12.9 Hypertensive chronic kidney disease with stage 1 through stage 4 chronic kidney disease, or unspecified chronic kidney disease; E11.22 Type 2 diabetes mellitus with diabetic chronic kidney disease; N18.32 Chronic kidney disease, stage 3b; E78.5 Hyperlipidemia, unspecified | CPT/HCPCS: 83036; 90471; 96127; 99396 ==

== ENCOUNTER 2024-05-31 11:03 | Outpatient (REF) | payer MEDICARE, SELFPAY ==
[2024-05-31 12:28] LABS: Creatinine Urine 125.86 mg/dL
[2024-05-31 12:38] LABS: Microalbumin Urine > 2000.0 mg/L
[2024-05-31 12:48] LABS: Alanine Aminotransferase 32 U/L (0-40); Albumin Level 3.8 g/dL (3.5-5.0); Alkaline Phosphatase 69 U/L (39-117); Anion Gap 10 (12-20); Aspartate Amino Transferase 30 U/L (5-37); Bilirubin Total 0.4 mg/dL (0.0-1.0); Blood Urea Nitrogen 22 mg/dL (9-16); Calcium 9.2 mg/dL (8.4-10.2); Carbon Dioxide 23 mmol/L (22-29); Chloride 114 mmol/L (96-108); Cholesterol 132 mg/dL (<200); Estimated Glomerular Filt Rate 47; Glucose Fasting 108 mg/dL (60-99); HDL Cholesterol 32 mg/dL (>40); LDL Cholesterol Calculated 55 mg/dL (<100); Potassium 4.3 mmol/L (3.3-5.1); Sodium 143 mmol/L (135-145); Total Protein 6.9 g/dL (6.5-8.0); Triglycerides 229 mg/dL (<150)
--- OUTSIDE RECORDS SUMMARY | 2024-05-31 13:23 | XMS_ITS | Clinical Summary ---
Author Organization [facility] Address [address] [place] [address] Phone Care Team Providers Care Energy Rater Name Role Phone Olga Mitchell MD Primary Care Provider [phone] Allergies No known active allergies Medications aspirin (ST BAILEY) 81 MG EC tablet Take 1 tablet by mouth 1 (one) time each day Active insulin aspart (NovoLOG FLEXPEN) 100 UNIT/ML injection Active insulin glargine (Lantus SoloStar) 100 UNIT/ML injection Active telmisartan (MICARDIS) 20 MG tablet Take 1 tablet by mouth 1 (one) time each day Active metoprolol succinate XL (TOPROL-XL) 100 MG 24 hr tablet Take 100 mg by mouth 1 (one) time each day 1 Active timolol (TIMOPTIC) 0.5 % ophthalmic solution INSTILL 1 DROP INTO THE LEFT EYE 2 TIMES A DAY 1 Active metFORMIN (GLUCOPHAGE) 500 MG tablet TAKE 1 TABLET BY MOUTH EVERY DAY WITH A MEAL 1 Active latanoprost (XALATAN) 0.005 % ophthalmic solution PUT 1 DROP INTO LEFT EYE AT BEDTIME 1 Active HumaLOG KWIKPEN 100 UNIT/ML solution pen-injector INJECTY 8 12 UNITS SUBCUTANEOUSLY 3 TIMES DAILY 1 Active dorzolamide (TRUSOPT) 2 % ophthalmic solution PUT 1 DROP INTO LEFT EYE TWICE A DAY 1 Active acetaZOLAMIDE (DIAMOX) 250 MG tablet Take 250 mg by mouth 1 Active atorvastatin (LIPITOR) 40 MG tablet Take 40 mg by mouth 1 (one) time each day 1 Active brimonidine (ALPHAGAN) 0.2 % ophthalmic solution INSTILL 1 DROP INTO THE LEFT EYE 2 TIMES A DAY Active amLODIPine (NORVASC) 5 MG tablet Take 5 mg by mouth 1 (one) time each day Active clopidogrel (PLAVIX) 75 MG tablet Take 75 mg by mouth 1 (one) time each day 9 Active furosemide (LASIX) 40 MG tablet Take 40 mg by mouth 1 (one) time each day Active Active Problems Problem Noted Date Diagnosed Date Generalized ischemic myocardial dysfunction 06/2021 Coronary atherosclerosis 06/14/2020 COVID-19 06/14/2020 Dyslipidemia 06/14/2020 Essential hypertension 06/14/2020 History of coronary artery bypass grafting 06/14 Myocardial infarction 06/14/2020 Obstructive sleep apnea syndrome 06/14/2020 Diabetes mellitus 05/03/2020 Hypertensive heart disease without heart failure 05/03/2020 Proteinuria 05/03/2020 Family History Medical History Relation Comments Hypertension Child Diabetes Father Heart disease Father Hypertension Father Diabetes Mother Heart disease Mother Diabetes Sibling 1 Hypertension Sibling 2 Heart disease Sibling 3 Relation Status Comments Child Father Mother Sibling 1 Sibling 2 Sibling 3 Social History Tobacco Use Types Packs/Day Years Used Date Smoking Tobacco: Never Smokeless Tobacco: Never Tobacco Cessation:Counseling Given: No Alcohol Use Standard Drinks/Week Comments Never 0 (1 standard drink = 0.6 oz pur e alcohol) Sex and Gender Information Value Date Recorded Sex Assigned at Not on file Legal Sex Male 4:54 PM EST Gender Identity Not on file Sexual Orientation Not on file Last Filed Vital Signs Vital Sign Reading Time Taken Comments Blood Pressure 110/60 10/24/2020 3:10 PM EDT Pulse 77 10/24/2020 3:10 PM EDT Temperature - - Respiratory Rate - - Oxygen Saturation 99% 01/18/2020 12:00 PM EST Inhaled Oxygen Concentration - - Weight 88.9 kg (196 lb) 10/24/2020 3:10 PM EDT Height 165.1 cm (5' 5 ) 06/07/2020 3:08 PM EDT Body Mass Index 32.62 06/07/2020 3:08 PM EDT Plan of Treatment Health Maintenance Due Date Last Done Comments Colorectal Cancer Screening: Annual FOBT 2009 Colorectal Cancer Screening: Colonoscopy 2009 Colorectal Cancer Screening: Sigmoidoscopy 2009 Diabetes: Hemoglobin A1C 03/31/2020 05/02/2018 Diabetes: Ophthalmology Exam 03/31/2020 Diabetes: Pedal Pulse Checked 03/31/2020 Diabetes: Sensory Foot Exam 03/31/2020 Diabetes: Visual Foot Exam 03/31/2020 Influenza Vaccine (#1) 2023 Hepatitis B Vaccine Aged Out No longe r eligible based on patient's age to complete this topic Pneumococcal Vaccine: Pediat rics (0 to 5 Years) and At-Risk Patients (6 to 64 Years) Aged Out No longer eligi ble based on patient's age to complete this topic Procedures Procedure Name Priority Date/Time Associated Diagnosis Comments BLOOD PANEL (HC) Routine 05/02/2018 12:0 0 AM EST from Last 3 Months or Most Recently Relevant to Health Maintenance Results * (ABNORMAL) Blood Panel (05/02/2018 12:00 AM EST) Calcium 9.8 8.4 - 10.2 mg/dl [facility] Hemoglobin A1C 7.0(H) <5 % [facility] Potassium 5.0 3.5 - 5.1 mmol/L [facility] Creatinine 0.90 0.70 - 1.30 mg/dl [facility] Carbon Dioxide (CO2) 31(H) 22 - 30 mmol/L [facility] eGFR Non- >60 >60 ml/min [facility] Sodium 139 137 - 145 mmol/L [facility] BUN 20 9 - 20 mg/dl [facility] 05/02/2018 us [facility] Conversion LAB [id number] LICITED RESULTS Final Result [facility] from Last 3 Months or Most Recently Relevant to Health Maintenance Insurance [facility] MEDICAID [facility] MEDICAID Care Teams Energy Rater Relationship Specialty Start Date End Date Olga Mitchell MD [facility] [address] [place], [place] PCP - General 03/11/20
--- OUTSIDE RECORDS SUMMARY | 2024-05-31 13:23 | XMS_ITS | Referral Summary ---
Author Organization [facility] Address [address] [place] [address] Care Team Providers Care Cigarette Tipper Name Role Phone Edilia Keenan Primary Care Provider [phone] Allergies No known active allergies Medications metoprolol succinate XL (TOPROL XL) 100 mg tablet Take 100 mg by mouth once a day. Active atorvastatin calcium (ATORVASTATIN ORAL) Take by mouth. Active metFORMIN ER (GLUCOPHAGE XR) 500 mg tablet Take 500 mg by mouth daily with breakfast. Active fenofibrate (LOFIBRA) tablet 160 mg Take 160 mg by mouth once a day. Active furosemide (LASIX) 40 mg tablet Take 40 mg by mouth 2 times a day. Active Social History Tobacco Use Types Packs/Day Years Used Date Smoking Tobacco: Former Cigarettes Smokeless Tobacco: Never Tobacco Cessation:Counseling Given: No Alcohol Use Standard Drinks/Week Comments Yes 0 (1 standard drink = 0.6 oz pur e alcohol) SOCIAL Sex and Gender Information Value Date Recorded Sex Assigned at Not on file Legal Sex Male 2:49 PM EST Gender Identity Not on file Sexual Orientation Not on file Last Filed Vital Signs Vital Sign Reading Time Taken Comments Blood Pressure 158/81 03/11/2022 11:30 AM EST Pulse 84 03/11/2022 11:30 AM EST Temperature 36.1 ??C (97 ??F) 03/11/2022 10:38 AM EST Respiratory Rate 13 03/11/2022 11:30 AM EST Oxygen Saturation 98% 03/11/2022 11:30 AM EST Inhaled Oxygen Concentration - - Weight 82.1 kg (181 lb) 03/11/2022 7:36 AM EST Height 165.1 cm (5' 5 ) 03/04/2022 2:07 PM EST Body Mass Index 30.12 03/04/2022 2:07 PM EST Plan of Treatment Not on file Medical Devices Implanted Type Area Stain Applicator Device Identifier Shelf Expiration Date Model / Serial / Lot Graft Patch Pericardium 1.5cmx1.5cm Tutoplast - [id number] - [id number] Implanted:Qty: 1 on 03/11/2022 by Zuleima Corral MD at [facility] Graft Left: Eye [employer] 05/29/2026 [id number] / [id number] / Valve Glaucoma Fp7 Silicone Sterile [id number] Ahmed - [id number] Implanted:Qty: 1 on 03/11/2022 by Zuleima Corral MD at [facility] Implant Left: Eye [employer] 12/01/2023 FP7 / / [id number] Insurance [employer] Advance Directives * Full Code (Latest Code Status on File) Date Activated Date Inactivated Comments 03/11/2022 7:50 AM 03/11/2022 2:28 PM Care Teams Cigarette Tipper Relationship Specialty Start Date End Date Edilia Keenan [address] [place] [address] PCP - General Internal Medicine 03/11/22
--- OUTSIDE RECORDS SUMMARY | 2024-05-31 13:23 | XMS_ITS | Clinical Summary ---
Author Organization [facility] Address [address] [place] [address] Care Team Providers Care Bar Machine Operator Name Role Phone Edilia Keenan Primary Care Provider [phone] Allergies No known active allergies Medications metoprolol [...] 03/04/2022 2:07 PM EST Plan of Treatment Health Maintenance Due Date Last Done Comments Cologuard 1960 Colon Cancer Screening 1960 Colonoscopy 1960 FOBT / Fit Test 1960 HIV Screening 1960 Sigmoidoscopy 1960 DTaP,Tdap,and Td Vaccines (1 - Tdap) 1982 Pneumococcal Vaccine: 50+ Ye ars (1 of 1 - PCV) 2010 Zoster Vaccines (1 of 2) 2010 COVID-19 Vaccine (1 - 2023-2 5 season) 2023 Alcohol/Substance Use Screening 03/01/2024 Influenza Vaccine (Season Ended) 2024 RSV Vaccine (60+ years old a nd patients) (1 - 1-dose 75+ series) 12/11/2035 Hepatitis B Vaccines Aged Out No long er eligible based on patient's age to complete this topic Medical Devices Implanted Type Area Manager Production Device Identifier Shelf Expiration Date Model / Serial / Lot Graft Patch Pericardium 1.5cmx1.5cm Tutoplast - [id number] - [id number] Implanted:Qty: 1 on 03/11/2022 by Zuleima Corral MD at [facility] Graft Left: Eye [employer] 05/29/2026 [id number] / [id number] / Valve Glaucoma Fp7 Silicone Sterile [id number] [facility] - [id number] Implanted:Qty: 1 on 03/11/2022 by Zuleima Corral MD at [facility] Implant Left: Eye [employer] 12/01/2023 FP7 / / [id number] Insurance [facility] MEDICAID Advance Directives * Full Code (Latest Code Status on File) Date Activated Date Inactivated Comments 03/11/2022 7:50 AM 03/11/2022 2:28 PM Care Teams Bar Machine Operator Relationship Specialty Start Date End Date Edilia Keenan [address] [place] [address] PCP - General Internal Medicine 03/11/22
== END 2024-05-31 11:04 | disposition home or self-care (01) ==
LOC: HO.LAB 11:03
PROVIDERS: PCP Internal Medicine; Visit Provider Internal Medicine
DX: Z00.00 Encounter for general adult medical examination without abnormal findings (principal); R80.9 Proteinuria, unspecified; E78.5 Hyperlipidemia, unspecified
CPT/HCPCS: 36415; 80053; 80061; 82043; 82570

== ENCOUNTER 2024-06-07 13:26 | Outpatient (AMB) | payer MEDICARE, SELFPAY ==
[2024-06-07 13:27] VITALS: BP 148/76; PULSE 66; RESP 16; TEMP 36.1; O2SAT 99; BMI 28.6
--- NOTE | 2024-06-07 13:27 | A.OFFPC_ITS ---
Vital Signs 06/07/24 13:27 Height 5 ft 6 in Weight 177 lb BMI 28.6 BP 148/76 H Blood Pressure Location Lt brachial Position Sitting Respiration 16 Pulse 66 Pulse Source Pulse Oximeter Temp 96.9 F Temp Source Temporal Artery Scan Pulse Oximetry (%) 99 Oxygen Delivery Method Room Air Intake Visit Reasons: dm Associate Professor Of Library Science Required: Yes Associate Professor Of Library Science Language: Information Architect Name: Used tablet- Tori [id number] Accompanied by: Self / Same As Patient Allergies lisinopril Adverse Reaction (Intermediate, Verified 06/07/24 13:51) cough Medication List - Last Reconciled 06/07/24 by Edilia Banks MD acetazolamide 250 mg PO TID 30 days aspirin 81 mg PO DAILY 90 days atorvastatin 80 mg PO BEDTIME 90 days blood sugar diagnostic (FreeStyle Lite Strips) As directed three times a day blood-glucose meter (FreeStyle [place] Lite kit) As directed brimonidine 0.2% 1 drp ophthalmic (eye) ONCE 90 days cholecalciferol (vitamin D3) 50 mcg PO DAILY 90 days dorzolamide 2% 1 drp ophthalmic (eye) TID 90 days dorzolamide-timolol 22.3-6.8 mg/mL 1 drp ophthalmic (eye) BID PRN furosemide 40 mg PO DAILY 90 days hydrocortisone 1% (Anti-Itch (hydrocortisone)) 1 appl topical TID PRN 2 weeks insulin lispro (Humalog KwikPen (U-100) Insulin) 8 - 12 units (0.08 - 0.12 mL) subcut TID 30 days lancets (FreeStyle Lancets) As directed three time a day lancing device As directed latanoprost 0.005% 1 drp ophthalmic (eye) BEDTIME 90 days metformin 850 mg PO BID 90 days metoprolol succinate ER 100 mg PO DAILY 90 days timolol maleate 0.5% 1 drp ophthalmic (eye) BID Tobacco use date assessed: 06/07/24 Dental Screening Dental Screen Date: 12/08/23 HPI HPI Comments History of Present Illness Details The patient is a 63-year-old male presenting with a follow-up for management of chronic conditions including diabetes, hypertension, hyperlipidemia, ischemic cardiomyopathy, chronic kidney disease stage 3 and proteinuria. During recent evaluations, he reported elevated hypertension levels and an increase in blood glucose, reflected by a rise in Hemoglobin A1c to 7.3%. The proteinuria has significantly worsened, with current levels noted to exceed 2000 mg. Will add losartan for hypertension and proteinuria, along with a statin for cholesterol control, showing effective results with normal LDL levels. He reports taking furosemide as needed for edema, and metformin, despite experiencing recent episodes of diarrhea that he associates with the medication. Other relevant medications include acetazolamide and aspirin. Jardiance is proposed to provide additional control of hyperglycemia and offer cardiovascular protection. [facility] Medical History (Updated 06/07/24 @ 14:02 by Edilia Banks MD) Pneumonia due to COVID-19 virus Pre-op examination Positive for macroalbuminuria Ischemic cardiomyopathy STEMI (ST elevation myocardial infarction) Type 2 diabetes mellitus with other diabetic kidney complication Proteinuria Hyperlipidemia LDL goal <70 Essential hypertension Surgical History History of open heart surgery Hx of CABG Family History Father CVD (cardiovascular disease) HTN (hypertension) Diabetes Mother CVD (cardiovascular disease) Diabetes Brother Diabetes HTN (hypertension) CVD (cardiovascular disease) Social History Household Members: None Housing: Apartment Alcohol intake: current Alcohol intake frequency: holidays/special occasions only Alcohol type: wine Patient Tobacco Use Status: Former Tobacco user Tobacco use type: Cigarette e-Cigarette/Vaping Use: Never Used Second Hand Smoke Exposure: No service: No Current occupational status: unemployed Cognitive needs: No Hearing needs: No Vision needs: Yes Questionnaire Thrive Questionnaire Date Thrive assessed: 06/07/24 I am a: Patient What is your living situation today?: I have a steady place to live Within the past 12 months, did the food you bought not last and you didn't have the money to get more?: Never true Within the past 12 months, did you worry whether your food would run out before you got money to buy more?: Never true Do you have trouble paying for medicines?: No Do you have trouble getting transportation to medical appointments?: No Do you have trouble paying your heating and electricity bill?: No Do you have trouble taking care of your child, family member or friend?: No Do you have trouble with day-to-day activities such as bathing, preparing meals, shopping, managing finances, etc.?: No Are you currently unemployed and looking for a job?: No Are you interested in more education?: No Please select the resources that you would like help with: None Currently or been in a relationship where the following occur: No concerns reported THRIVE Score: 0 AUDIT C Alcohol Use Questionnaire (AUDIT-C) 1. How often do you have a drink containing alcohol?: Never Total Score: 0 Score Reviewed/Action Taken: Yes LORENZO-7 AMB Questionnaire LORENZO-7 Date LORENZO - 7 assessed: 12/08/23 Source: Developed by Drs. Abram Whitt, China Bentley, Ignacio Ma and colleagues, with an educational rommel from [employer]. Review of Systems Const All systems reviewed & are unremarkable except as noted in HPI and below Card Denies chest pain at rest, Denies chest pain with activity, Denies edema, Denies irregular heart rhythm, Denies claudication, Denies dyspnea, Denies dyspnea on exertion, Denies orthopnea, Denies paroxysmal nocturnal dyspnea and Denies slow heart rate Resp Denies cough, Denies dyspnea and Denies dyspnea on exertion GI Denies abdominal pain, Denies change in bowel habits, Denies excessive flatus, Denies nausea and Denies vomiting Denies urinary hesitancy, Denies urinary incontinence and Denies urinary urgency Musc Denies abnormal gait, Denies atrophy, Denies deformity and Denies limited range of motion Skin/Breast Denies bleeding lesions, Denies changing lesions and Denies rash Neuro Denies abnormal gait and Denies lack of coordination Physical exam (Primary Care) Vital Signs: Last Vital Signs Temp 96.9 F 06/07/24 13:27 Pulse 66 06/07/24 13:27 Resp 16 06/07/24 13:27 BP 148/76 H 06/07/24 13:27 Pulse Ox 99 06/07/24 13:27 Oxygen Delivery Method Room Air 06/07/24 13:27 BMI result Body Mass Index 28.6 Tobacco/Smoking Status: Tobacco use Status Tobacco use date assessed 06/07/24 06/07/24 13:47 Patient Tobacco Use Status Former Tobacco user 06/07/24 13:32 Tobacco use type Cigarette 06/07/24 13:32 e-Cigarette/Vaping Use Never Used 06/07/24 13:32 Thrive Assessment: Date of Thrive Assessment Date Thrive assessed 06/07/24 06/07/24 13:47 Currently or been in a relationship where the following occur: No concerns reported Resp Effort & Inspection: normal respiratory effort Auscultation: clear to auscultation bilaterally Cardio Jugular venous distension: no JVD Rate: regular rate Rhythm: regular rhythm Heart sounds: S1 normal heart sound present and S2 normal heart sound present Extrem General: Yes full ROM Results AMB Hemoglobin A1c AMB Hemoglobin A1c 7.3 % Last Edit by Sherrie Cruz CMA on 06/07/24 13:49 Results Reviewed Results Reviewed: Laboratory Last Values Hgb A1c (Clinic) 7.3 % (4.0-6.0) H 06/07/24 13:32 Coding Level of Care Code Est Pt Level 4 (82638) Complex EM visit Add On G2211 Diagnoses Microalbuminuria R80.9 Ischemic cardiomyopathy I25.5 Stage 3b chronic kidney disease N18.32 Chronic kidney disease stage 3 subtype: stage 3b (GFR 30-44) Type 2 diabetes mellitus with other diabetic kidney complication E11.29 Hyperlipidemia LDL goal <70 E78.5 Essential hypertension I10 Time Spent (min) 24 Assessment & Plan Assessment & Plan (1) Microalbuminuria: Code(s): R80.9 - Proteinuria, unspecified Category: Medical (2) Ischemic cardiomyopathy: Code(s): I25.5 - Ischemic cardiomyopathy Category: Medical (3) CKD (chronic kidney disease) stage 3, GFR 30-59 ml/min: Code(s): N18.30 - Chronic kidney disease, stage 3 unspecified Category: Medical Qualifiers: Chronic kidney disease stage 3 subtype: stage 3b (GFR 30-44) Qualified Code(s): N18.32 - Chronic kidney disease, stage 3b (4) Type 2 diabetes mellitus with other diabetic kidney complication: Code(s): E11.29 - Type 2 diabetes mellitus with other diabetic kidney complication Category: Medical (5) Hyperlipidemia LDL goal <70: Code(s): E78.5 - Hyperlipidemia, unspecified Category: Medical (6) Essential hypertension: Code(s): I10 - Essential (primary) hypertension Category: Medical Plan Starting Losartan is essential to address both hypertension and reduce proteinuria levels. Introduction of Jardiance for controlling hyperglycemia while leveraging its cardiovascular and renal benefits is recommended. Current atorvastatin prescription is effective, keeping cholesterol within acceptable limits. Continuing metformin with consideration for its digestive side effects; managing them as needed, with further monitoring of the patient's triglyceride levels. Consultation with nephrology may be beneficial due to significant proteinuria levels, with consideration of cardiology for persistent management support. Patient was informed and verbally consented to the use of an ambient scribe for clinic note documentation during this visit. I discussed potential modifications in the management of his chronic conditions, including considering Jardiance as an adjunct to current diabetic therapy due to its renal, cardiovascular, and glycemic benefits. Risks associated with medications such as Jardiance, particularly related to frequent urination or genital infections, were highlighted. The patient was informed about the importance of a nephrology consult for proteinuria, and its potential causes and implications. Continued monitoring of metabolic control was emphasized, and the necessity of periodic assessments was discussed to evaluate the effectiveness and adjust treatments accordingly. The patient expressed understanding and consented to the adjustments discussed. Orders: Orders AMB Hemoglobin A1c Today E11.29 - Type 2 diabetes mellitus with other diabetic kidney complication Referrals Nephrology Referral R80.9 - Proteinuria, unspecified Cardiology Referral I25.5 - Ischemic cardiomyopathy Medications: New empagliflozin (Jardiance) 10 mg PO DAILY 90 days 90 tabs 1RF losartan 25 mg PO DAILY 90 days 90 tabs 1RF Patient Instructions: - Continue taking lisinopril as prescribed. - Begin Jardiance as discussed for better management of blood glucose and renal protection. - Continue current cholesterol medication (atorvastatin). - Take metformin as directed; monitor for gastrointestinal side effects. - Consider nephrology consultation for proteinuria management. - Monitor blood sugar levels closely; adjust insulin usage as necessary. - Discuss any new or worsening symptoms with me promptly.
--- OUTSIDE RECORDS SUMMARY | 2024-06-07 15:32 | XMS_ITS | Clinical Summary ---
Author Organization [facility] Address [address] [place] [address] Care Team Providers Care Artificial Flowers Dyer Name Role Phone Edilia Keenan Primary Care Provider [phone] Allergies No known active allergies Medications metoprolol [...] this topic Medical Devices Implanted Type Area Coding And Reimbursement Specialist Device Identifier Shelf Expiration Date Model / Serial / Lot Graft Patch Pericardium 1.5cmx1.5cm Tutoplast - [id number] - [id number] Implanted:Qty: 1 on 03/11/2022 by Zuleima Corral MD at [facility] Graft Left: Eye [employer] 05/29/2026 [id number] / [id number] / Valve Glaucoma Fp7 Silicone Sterile [id number] [facility] - [id number] Implanted:Qty: 1 on 03/11/2022 by Zuleima Corral MD at [facility] Implant Left: Eye [employer] 12/01/2023 FP7 / / [id number] Insurance [facility] MEDICAID Advance Directives * Full Code (Latest Code Status on File) Date Activated Date Inactivated Comments 03/11/2022 7:50 AM 03/11/2022 2:28 PM Care Teams Artificial Flowers Dyer Relationship Specialty Start Date End Date Edilia Keenan [address] [place] [address] PCP - General Internal Medicine 03/11/22
--- OUTSIDE RECORDS SUMMARY | 2024-06-07 15:32 | XMS_ITS | Referral Summary ---
Author Organization [facility] Address [address] [place] [address] Care Team Providers Care Bottoming Room Inspector Name Role Phone Edilia Keenan Primary Care Provider [phone] Allergies No known active allergies Medications metoprolol [...] on file Medical Devices Implanted Type Area News Writer Device Identifier Shelf Expiration Date Model / Serial / Lot Graft Patch Pericardium 1.5cmx1.5cm Tutoplast - [id number] - [id number] Implanted:Qty: 1 on 03/11/2022 by Zuleima Corral MD at [facility] Graft Left: Eye [employer] 05/29/2026 [id number] / [id number] / Valve Glaucoma Fp7 Silicone Sterile [id number] - [id number] Implanted:Qty: 1 on 03/11/2022 by Zuleima Corral MD at [facility] Implant Left: Eye [employer] 12/01/2023 FP7 / / [id number] Insurance [employer] MEDICA[employer] Advance Directives * Full Code (Latest Code Status on File) Date Activated Date Inactivated Comments 03/11/2022 7:50 AM 03/11/2022 2:28 PM Care Teams Bottoming Room Inspector Relationship Specialty Start Date End Date Edilia Keenan [address] [place] [address] PCP - General Internal Medicine 03/11/22
--- OUTSIDE RECORDS SUMMARY | 2024-06-07 15:32 | XMS_ITS | Clinical Summary ---
Author Organization [facility] Address [address] [place] [address] Phone Care Team Providers Care Extruder Operator Horizontal Name Role Phone Olga Mitchell MD Primary Care Provider [phone] Allergies No known active allergies Medications aspirin [...] Diabetes: Visual Foot Exam 03/31/2020 Influenza Vaccine (Season Ended) 2024 Hepatitis B Vaccine Aged Out No longe [...] mg/dl RTAMA 05/02/2018 us Rtama Conversion LAB [id number] LICITED RESULTS Final Result RTAMA from Last 3 Months or Most Recently Relevant to Health Maintenance Insurance [facility] MEDICAID [facility] MEDICAID Care Teams Extruder Operator Horizontal Relationship Specialty Start Date End Date Olga Mitchell MD [facility] [address] [place], [place] PCP - General 03/11/20
== END 2024-06-07 14:04 | disposition home or self-care (01) ==
LOC: HO.HMCH 13:26
PROVIDERS: PCP Internal Medicine; Visit Provider Internal Medicine
DX: R80.9 Proteinuria, unspecified (principal); I25.5 Ischemic cardiomyopathy; N18.32 Chronic kidney disease, stage 3b; E11.29 Type 2 diabetes mellitus with other diabetic kidney complication; E78.5 Hyperlipidemia, unspecified; I10 Essential (primary) hypertension

== ENCOUNTER → 2024-06-07 13:26 | Outpatient (BNVA) | payer MEDICARE, SELFPAY | PROVIDERS: PCP Internal Medicine; Visit Provider Internal Medicine | DX: R80.9 Proteinuria, unspecified (principal); I25.5 Ischemic cardiomyopathy; E78.5 Hyperlipidemia, unspecified; I12.9 Hypertensive chronic kidney disease with stage 1 through stage 4 chronic kidney disease, or unspecified chronic kidney disease; E11.22 Type 2 diabetes mellitus with diabetic chronic kidney disease; N18.32 Chronic kidney disease, stage 3b | CPT/HCPCS: 83036; 99212 ==

== ENCOUNTER 2024-06-21 15:12 | Outpatient (AMB) | payer MEDICARE, SELFPAY ==
--- NOTE | 2024-06-21 15:16 | HO.NEPHOV_ITS ---
Vital Signs 06/21/24 15:20 Height 5 ft 6 in Weight 178 lb 4 oz BMI 28.8 BP 120/70 Blood Pressure Location Lt brachial Position Sitting Pulse 58 Pulse Source Pulse Oximeter Pulse Oximetry (%) 97 Oxygen Delivery Method Room Air Intake Visit Reasons: INP: Proteinuria-LVM Base Brander Required: Yes Base Brander Language: Animal Sticker Services: Base Brander Present Base Brander Name: Aldo Bateman [id number] Information Interpreted: clinical only Accompanied by: Self / Same As Patient Allergies lisinopril Adverse Reaction (Intermediate, Verified 06/21/24 15:20) cough HPI Comments Details: I had the pleasure of seeing [facility] for proteinuric CKD with hypertension. He is a 63 year old male presenting with diabetes, hypertension as well as ischemic cardiomyopathy along with chronic kidney disease stage 3 and proteinuria. His blood pressure and blood glucose have been higher than baseline and his hemoglobin A1c has gone up to 7.3. His proteinuria has significantly worsened, with current levels noted to exceed 2000 mg. He has been started on ARB as well as SGLT2 inhibitor recently. He reports taking furosemide as needed for edema, and metformin, despite experiencing recent episodes of diarrhea that he associates with the medication. He does not have any epistaxis, photosensitivity, skin rashes, joint swellings, hematemesis, melena, nausea, vomiting, diarrhea, orthostatic symptoms, chest pain, shortness of breath, paroxysmal nocturnal dyspnea, orthopnea, excessive intake of nonsteroidal anti- inflammatories, new bone or back pain. His recent serum creatinine has been 1.52. [facility] Medical History Pneumonia due to COVID-19 virus Pre-op examination Positive for macroalbuminuria Ischemic cardiomyopathy STEMI (ST elevation myocardial infarction) Type 2 diabetes mellitus with other diabetic kidney complication Proteinuria Hyperlipidemia LDL goal <70 Essential hypertension Surgical History History of open heart surgery Hx of CABG Family History Father CVD (cardiovascular disease) HTN (hypertension) Diabetes Mother CVD (cardiovascular disease) Diabetes Brother Diabetes HTN (hypertension) CVD (cardiovascular disease) Social History Household Members: None Housing: Apartment Alcohol intake: current Alcohol intake frequency: holidays/special occasions only Alcohol type: wine Patient Tobacco Use Status: Former Tobacco user Tobacco use type: Cigarette e-Cigarette/Vaping Use: Never Used Second Hand Smoke Exposure: No service: No Current occupational status: unemployed Cognitive needs: No Hearing needs: No Vision needs: Yes Review of Systems Const All systems reviewed & are unremarkable except as noted in HPI and below Physical Exam Vital Signs: Last Vital Signs Pulse 58 06/21/24 15:20 BP 120/70 06/21/24 15:20 Pulse Ox 97 06/21/24 15:20 Oxygen Delivery Method Room Air 06/21/24 15:20 BMI result Body Mass Index 28.8 Const General: comfortable and no acute distress Orientation/consciousness: patient oriented x3 HEENT Head: Yes normocephalic Mouth: Normal oral and palatal mucosa present Eyes EOM: EOMs intact bilaterally Neck Neck: Yes supple Resp Auscultation: clear to auscultation bilaterally Cardio Jugular venous distension: no JVD Rate: regular rate GI Palpation (GI): Soft to palpation Auscultation: normal bowel sounds General: Yes no CVA tenderness Back/Spine/Pelvis Back: no CVA tenderness Skin General skin exam: no rashes or lesions noted Neuro General: patient oriented x3 and moves all extremities Extrem General: Yes no pedal edema Results Reviewed Nephrology Results: Sodium 143 mmol/L (135-145) 05/31/24 Potassium 4.3 mmol/L (3.3-5.1) 05/31/24 Chloride 114 mmol/L (96-108) H 05/31/24 Carbon Dioxide 23 mmol/L (22-29) 05/31/24 BUN 22 mg/dL (9-16) H 05/31/24 Creatinine 1.52 mg/dL (0.5-1.4) H 05/31/24 Calcium 9.2 mg/dL (8.4-10.2) 05/31/24 Urine Creatinine 125.86 mg/dL 05/31/24 Assessment & Plan Assessment & Plan (1) Proteinuria due to type 2 diabetes mellitus: Code(s): E11.29 - Type 2 diabetes mellitus with other diabetic kidney complication; R80.9 - Proteinuria, unspecified Category: Medical (2) CKD (chronic kidney disease) stage 3, GFR 30-59 ml/min: Code(s): N18.30 - Chronic kidney disease, stage 3 unspecified Category: Medical Qualifiers: Chronic kidney disease stage 3 subtype: stage 3b (GFR 30-44) Qualified Code(s): N18.32 - Chronic kidney disease, stage 3b (3) Essential hypertension: Code(s): I10 - Essential (primary) hypertension Category: Medical Plan Hang has 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 He most likely has renovascular disease especially given background of coronary artery disease as well as ischemic cardiomyopathy. He has been started on ARB as well as SGLT2 inhibitor recently. He should maintain good hydration and avoid nonsteroidal anti-inflammatories. I have ordered workup as well as imaging studies. He may need a renal biopsy. I shall try to maximize his ARB and SGLT2 inhibitor with time if his hemodynamics, serum potassium and renal functions permit. Further management is pending evolving data. Answered all questions and follow-up appointment was given. Orders: Orders Prothrombin Time INR 06/21/24 - Type 2 diabetes mellitus with other diabetic kidney complication, R80.9 - Proteinuria, unspecified Myeloperoxidase Antibody 06/21/24 - Type 2 diabetes mellitus with other diabetic kidney complication, R80.9 - Proteinuria, unspecified Anti Glomerular Basement Memb 06/21/24 - Type 2 diabetes mellitus with other diabetic kidney complication, R80.9 - Proteinuria, unspecified Complement C4 06/21/24 - Type 2 diabetes mellitus with other diabetic kidney complication, R80.9 - Proteinuria, unspecified Complement C3 06/21/24 - Type 2 diabetes mellitus with other diabetic kidney complication, R80.9 - Proteinuria, unspecified Hepatitis B Surface Antigen 06/21/24. - Type 2 diabetes mellitus with other diabetic kidney complication, R80.9 - Proteinuria, unspecified Phosphorus 06/21/24. - Type 2 diabetes mellitus with other diabetic kidney complication, R80.9 - Proteinuria, unspecified Complete Blood Count Auto Diff 06/21/24 - Type 2 diabetes mellitus with other diabetic kidney complication, R80.9 - Proteinuria, unspecified Anti DNA DS Antibody 06/21/24. - Type 2 diabetes mellitus with other diabetic kidney complication, R80.9 - Proteinuria, unspecified Proteinase 3 PR3 Antibodies 06/21/24. - Type 2 diabetes mellitus with other diabetic kidney complication, R80.9 - Proteinuria, unspecified Immunofixation Pnl, Serum 06/21/24 - Type 2 diabetes mellitus with other diabetic kidney complication, R80.9 - Proteinuria, unspecified Phospholipase A2 Receptor Pnl 06/21/24 - Type 2 diabetes mellitus with other diabetic kidney complication, R80.9 - Proteinuria, unspecified Hepatitis B Core Antibody 06/21/24 - Type 2 diabetes mellitus with other diabetic kidney complication, R80.9 - Proteinuria, unspecified Creatinine 06/21/24 - Type 2 diabetes mellitus with other diabetic kidney complication, R80.9 - Proteinuria, unspecified Blood Urea Nitrogen 06/21/24 - Type 2 diabetes mellitus with other diabetic kidney complication, R80.9 - Proteinuria, unspecified Electrolytes 06/21/24 - Type 2 diabetes mellitus with other diabetic kidney complication, R80.9 - Proteinuria, unspecified Calcium 06/21/24 - Type 2 diabetes mellitus with other diabetic kidney complication, R80.9 - Proteinuria, unspecified Parathyroid Hormone Intact 06/21/24 - Type 2 diabetes mellitus with other diabetic kidney complication, R80.9 - Proteinuria, unspecified Vitamin D 25-OH Total 06/21/24 - Type 2 diabetes mellitus with other diabetic kidney complication, R80.9 - Proteinuria, unspecified US renal BI 3 Weeks - Type 2 diabetes mellitus with other diabetic kidney complication, R80.9 - Proteinuria, unspecified, N18.32 - Chronic kidney disease, stage 3b, I10 - Essential (primary) hypertension US renal doppler 3 Weeks - Type 2 diabetes mellitus with other diabetic kidney complication, R80.9 - Proteinuria, unspecified Coding Level of Care Code New Pt Level 4 (90847) Diagnoses Proteinuria due to type 2 diabetes mellitus ; R80.9 Stage 3b chronic kidney disease N18.32 Chronic kidney disease stage 3 subtype: stage 3b (GFR 30-44) Essential hypertension I10
[2024-06-21 15:20] VITALS: BP 120/70; PULSE 58; O2SAT 97; BMI 28.8
--- OUTSIDE RECORDS SUMMARY | 2024-06-21 17:57 | XMS_ITS | Clinical Summary ---
Author Organization [facility] Address [address] [place] [address] Care Team Providers Care Wardrobe Consultant Name Role Phone dEilia Keenan Primary Care Provider [phone] Allergies No known active allergies Medications metoprolol [...] this topic Medical Devices Implanted Type Area Grind Operator Device Identifier Shelf Expiration Date Model / Serial / Lot Graft Patch Pericardium 1.5cmx1.5cm Tutoplast - [id number] - [id number] Implanted:Qty: 1 on 03/11/2022 by Zuleima Corral MD at [facility] Graft Left: Eye [employer] 05/29/2026 [id number] / [id number] / Valve Glaucoma Fp7 Silicone Sterile [id number] [facility] - [id number] Implanted:Qty: 1 on 03/11/2022 by Zuleima Corral MD at [facility] Implant Left: Eye [employer] 12/01/2023 FP7 / / [id number] Insurance [facility] MEDICAID Advance Directives * Full Code (Latest Code Status on File) Date Activated Date Inactivated Comments 03/11/2022 7:50 AM 03/11/2022 2:28 PM Care Teams Wardrobe Consultant Relationship Specialty Start Date End Date Edilia Keenan [address] [place] [address] PCP - General Internal Medicine 03/11/22
--- OUTSIDE RECORDS SUMMARY | 2024-06-21 17:57 | XMS_ITS | Clinical Summary ---
Author Organization [facility] Address [address] [place] [address] Phone Care Team Providers Care Aluminum Welder Name Role Phone Olga Mitchell MD Primary Care Provider Allergies No known active allergies Medications aspirin [...] Colonoscopy 2009 Colorectal Cancer Screening: Sigmoidoscopy 2009 Pneumococcal Vaccine: 50+ Ye ars (1 of 1 - PCV) 2010 Diabetes: Hemoglobin A1C 03/31/2020 05/02/2018 Diabetes: Ophthalmology [...] mg/dl RTAMA 05/02/2018 us Rtama Conversion LAB [id number] LICITED RESULTS Final Result RTAMA from Last 3 Months or Most Recently Relevant to Health Maintenance Insurance [facility] Medicaid [facility] Medicaid Care Teams Aluminum Welder Relationship Specialty Start Date End Date Olga Mitchell MD [facility] [address] [place], [place] PCP - General 03/11/20
--- OUTSIDE RECORDS SUMMARY | 2024-06-21 17:57 | XMS_ITS | Referral Summary ---
Author Organization [facility] Address [address] [place] [address] Care Team Providers Care Sanding Line Operator Name Role Phone Edilia Keenan Primary Care Provider [phone] Allergies No known active allergies Medications metoprolol [...] on file Medical Devices Implanted Type Area Crewman Main Battle Tank Device Identifier Shelf Expiration Date Model / Serial / Lot Graft Patch Pericardium 1.5cmx1.5cm Tutoplast - [id number] - [id number] Implanted:Qty: 1 on 03/11/2022 by Zuleima Corral MD at [facility] Graft Left: Eye [employer] 05/29/2026 [id number] / [id number] / Valve Glaucoma Fp7 Silicone Sterile [id number] Ahmed - [id number] Implanted:Qty: 1 on 03/11/2022 by Zuleima Corral MD at [facility] Implant Left: Eye [employer] 12/01/2023 FP7 / / [id number] Insurance [employer] Advance Directives * Full Code (Latest Code Status on File) Date Activated Date Inactivated Comments 03/11/2022 7:50 AM 03/11/2022 2:28 PM Care Teams Sanding Line Operator Relationship Specialty Start Date End Date Edilia Keenan [address] [place] [address] PCP - General Internal Medicine 03/11/22
== END 2024-06-21 15:42 | disposition home or self-care (01) ==
LOC: HO.HKA 15:12
PROVIDERS: PCP Internal Medicine; Referring Provider Internal Medicine; Visit Provider Internal Medicine Nephrology
DX: E11.29 Type 2 diabetes mellitus with other diabetic kidney complication (principal); R80.9 Proteinuria, unspecified; N18.32 Chronic kidney disease, stage 3b; I10 Essential (primary) hypertension
CPT/HCPCS: 99204

== ENCOUNTER → 2024-06-21 15:12 | Outpatient (BNVA) | payer MEDICARE, SELFPAY | PROVIDERS: PCP Internal Medicine; Referring Provider Internal Medicine; Visit Provider Internal Medicine Nephrology | DX: I12.9 Hypertensive chronic kidney disease with stage 1 through stage 4 chronic kidney disease, or unspecified chronic kidney disease (principal); E11.22 Type 2 diabetes mellitus with diabetic chronic kidney disease; E11.29 Type 2 diabetes mellitus with other diabetic kidney complication; N18.32 Chronic kidney disease, stage 3b; R80.9 Proteinuria, unspecified; I25.5 Ischemic cardiomyopathy | CPT/HCPCS: 99202 ==

== ENCOUNTER 2024-07-14 07:13 | Outpatient (AMB) | payer MEDICARE, SELFPAY ==
--- OUTSIDE RECORDS SUMMARY | 2024-07-14 07:15 | XMS_ITS | Encounter Summary ---
Author Organization [facility] Address [address] [address] Phone Care Team Providers Care Chemical Sprayer Name Role Phone Olga Mitchell MD Primary Care Provider [phone] Reason for Referral * Consultation (Routine) - Pending Review Specialty Diagnoses / Procedures Referred By Dima arzate Referred To Contact Interventional Radiology Diagnoses Acute tubular necrosis (HCC) Jason Griffin MD [address] [address] Phone: tel: fax: Lorne Barron IV, MD [address] [place] [address] Phone: tel: fax: Referral ID Status Reason Start Date Expiration Date Visits Requested Visits Authorized [id number] Pending Review Specialty Services Required 07/10/2024 07/10/2025 1 1 Encounter Details Date Type Department Care Team (Late st Contact Info) Description 07/10/2024 Telephone [facility] [address] [address] Jason Griffin MD [address] [address] Social History Tobacco Use Types Packs/Day Years Used Date Smoking Tobacco: Never Smokeless Tobacco: Never Alcohol Use Standard Drinks/Week Comments Never 0 (1 standard drink = 0.6 oz pur e alcohol) Sex and Gender Information Value Date Recorded Sex Assigned at Not on file Legal Sex Male 4:54 PM EST Gender Identity Not on file Sexual Orientation Not on file documented as of this encounter Miscellaneous Notes * Telephone Encounter - Jason Griffin MD - 07/10/2024 10:55 PM EDT Needs biopsy within 1 week, being discharged from hospital - [facility] I will see within 2 weeks in office documented in this encounter Plan of Treatment Upcoming Encounters Date Type Department Care Team (Late st Contact Info) Description 07/28/2024 9:45 AM EDT Office Visit [facility] [address] [phone] Jason Griffin MD [address] [address] Scheduled Referrals Name Type Priority Associated Diagnoses Order Schedule Ambulatory referral to Interventional Radiology Outpatient Referral Routine Acute tubular necrosis (HCC) Expected: 07/10/2024, Expires: 08/10/2025 documented as of this encounter Visit Diagnoses Diagnosis Acute tubular necrosis (HCC)- Primary documented in this encounter Care Teams Chemical Sprayer Relationship Specialty Start Date End Date Olga Mitchell MD [address] [place], [place] PCP - General 03/11/20 documented as of this encounter
--- OUTSIDE RECORDS SUMMARY | 2024-07-14 07:15 | XMS_ITS | Clinical Summary ---
Author Organization [facility] Address [address] [place] [address] Care Team Providers Care Pulmonology Technician Name Role Phone Edilia Keenan Primary Care Provider [phone] Allergies No known active allergies Medications metoprolol [...] DTaP,Tdap,and Td Vaccines (1 - Tdap) 1982 CT Lung Cancer Screening (Baseline) 2010 Pneumococcal Vaccine: 50+ Ye ars (1 of [...] this topic Medical Devices Implanted Type Area Dust Box Tender Device Identifier Shelf Expiration Date Model / Serial / Lot Graft Patch Pericardium 1.5cmx1.5cm Tutoplast - [id number] - [id number] Implanted:Qty: 1 on 03/11/2022 by Zuleima Corral MD at [facility] Graft Left: Eye [employer] 05/29/2026 [id number] / [id number] / Valve Glaucoma Fp7 Silicone Sterile [id number] [facility] - [id number] Implanted:Qty: 1 on 03/11/2022 by Zuleima Corral MD at [facility] Implant Left: Eye [employer] 12/01/2023 FP7 / / [id number] Insurance [facility] MEDICAID Advance Directives * Full Code (Latest Code Status on File) Date Activated Date Inactivated Comments 03/11/2022 7:50 AM 03/11/2022 2:28 PM Care Teams Pulmonology Technician Relationship Specialty Start Date End Date Edilia Keenan [address] [place] [address] [place] [address] PCP - General Internal Medicine 03/11/22
--- OUTSIDE RECORDS SUMMARY | 2024-07-14 07:15 | XMS_ITS | Referral Summary ---
Author Organization [facility] Address [address] [place] [address] Care Team Providers Care Practical Nursing Faculty Name Role Phone Edilia Keenan Primary Care Provider [phone] Allergies No known active allergies Medications metoprolol [...] on file Medical Devices Implanted Type Area Ordnance Truck Installation Mechanic Device Identifier Shelf Expiration Date Model / Serial / Lot Graft Patch Pericardium 1.5cmx1.5cm Tutoplast - [id number] - [id number] Implanted:Qty: 1 on 03/11/2022 by Zuleima Corral MD at [facility] Graft Left: Eye [employer] 05/29/2026 [id number] / [id number] / Valve Glaucoma Fp7 Silicone Sterile [id number] Ahmed - [id number] Implanted:Qty: 1 on 03/11/2022 by Zuleima Corral MD at [facility] Implant Left: Eye [employer] 12/01/2023 FP7 / / [id number] Insurance [employer] Advance Directives * Full Code (Latest Code Status on File) Date Activated Date Inactivated Comments 03/11/2022 7:50 AM 03/11/2022 2:28 PM Care Teams Practical Nursing Faculty Relationship Specialty Start Date End Date Edilia Keenan [address] [place] [address] PCP - General Internal Medicine 03/11/22
[2024-07-14 07:22] VITALS: BP 142/86; PULSE 64; O2SAT 98; BMI 27.1
--- NOTE | 2024-07-14 07:22 | A.OFFPC_ITS ---
Vital Signs 07/14/24 07:22 Height 5 ft 6 in Weight 168 lb BMI 27.1 BP 142/86 H Blood Pressure Location Lt brachial Position Sitting Pulse 64 Pulse Source Pulse Oximeter Pulse Oximetry (%) 98 Oxygen Delivery Method Room Air Intake Visit Reasons: [facility] 07/10 swelling hands feet Steam Tunnel Feeder Required: Yes Steam Tunnel Feeder Language: Armenian Allergies lisinopril Adverse Reaction (Intermediate, Verified 07/14/24 07:22) cough Tobacco use date assessed: 07/14/24 Dental Screening Dental Screen Date: 07/14/24 Did you have a dental visit in the last 12 months?: Yes Did you have a dental problem in the last 6 months where you did not have access to dental care?: No Was dental information given to patient?: Patient has dentist HPI HPI Comments History of Present Illness Details 63 y/o Male patient who presents to the clinic today for HDF. PMhx significant for diabetes, hypertension, hyperlipidemia, ischemic cardiomyopathy, chronic kidney disease stage 3 and proteinuria. He was admitted at [facility] [place] 07[place] for Acute Hypoxic respiratory Failure, Acute on chronic diastolic CHF Exacerbation and metabolic encephalopathy due to Severe MARTHA on CKD Stg 4. Medications discharged from Hospital: Metformin, Acetazolamide and Furosemide (these were contraindicated due to renal function). Patient is scheduled with [facility] for Renal B/x - Patient does not remember the date. [facility] Medical History Pneumonia due to COVID-19 virus Pre-op examination Positive for macroalbuminuria Ischemic cardiomyopathy STEMI (ST elevation myocardial infarction) Type 2 diabetes mellitus with other diabetic kidney complication Proteinuria Hyperlipidemia LDL goal <70 Essential hypertension Surgical History History of open heart surgery Hx of CABG Family History Father CVD (cardiovascular disease) HTN (hypertension) Diabetes Mother CVD (cardiovascular disease) Diabetes Brother Diabetes HTN (hypertension) CVD (cardiovascular disease) Social History Household Members: None Housing: Apartment Alcohol intake: current Alcohol intake frequency: holidays/special occasions only Alcohol type: wine Patient Tobacco Use Status: Former Tobacco user Tobacco use type: Cigarette e-Cigarette/Vaping Use: Never Used Second Hand Smoke Exposure: No service: No Current occupational status: unemployed Cognitive needs: No Hearing needs: No Vision needs: Yes Questionnaire PHQ-9 Over the last 2 weeks, how often have you been bothered by any of the following problems? 1. Little interest or pleasure in doing things: more than half the days 2. Feeling down, depressed, or hopeless: more than half the days 3. Trouble falling or staying asleep, or sleeping too much: several days 4. Feeling tired or having little energy: several days 5. Poor appetite or overeating: several days 6. Feeling bad about yourself - or that you are a failure or have let yourself or your family down: not at all 7. Trouble concentrating on things, such as reading the newspaper or watching television: more than half the days 8. Moving or speaking so slowly that other people could have noticed. Or the opposite - being so fidgety or restless that you have been moving around a lot more than usual: more than half the days 9. Thoughts that you would be better off or of hurting yourself in some way: not at all Total score: 11 Depression Screening Interpretation: Positive Depression Screening Done: Yes Source: Developed by Drs. Abram Whitt, China Bentley, Ignacio Ma and colleagues, with an educational rommel from [employer]. Thrive Questionnaire Date Thrive assessed: 06/07/24 I am a: Patient What is your living situation today?: I have a steady place to live Within the past 12 months, did the food you bought not last and you didn't have the money to get more?: Sometimes True Within the past 12 months, did you worry whether your food would run out before you got money to buy more?: Sometimes True Do you have trouble paying for medicines?: No Do you have trouble getting transportation to medical appointments?: Yes Do you have trouble paying your heating and electricity bill?: Yes Do you have trouble taking care of your child, family member or friend?: Yes Do you have trouble with day-to-day activities such as bathing, preparing meals, shopping, managing finances, etc.?: Yes Are you currently unemployed and looking for a job?: Yes Are you interested in more education?: Yes Please select the resources that you would like help with: Housing/Mcc Currently or been in a relationship where the following occur: I choose not to answer THRIVE Score: 4 AUDIT C Alcohol Use Questionnaire (AUDIT-C) 1. How often do you have a drink containing alcohol?: Monthly or less 2. How many drinks containing alcohol do you have on a typical day when you are drinking?: 1 or 2 3. How often do you have six or more drinks on one occasion?: Never Total Score: 1 LORENZO-7 AMB Questionnaire LORENZO-7 Date LORENZO - 7 assessed: 07/14/24 Feeling nervous, anxious, or on edge: 1 = Several days Not being able to stop or control worryin = Several days Worrying too much about different things: 1 = Several days Trouble relaxin = Several days Being so restless that it is hard to sit still: 1 = Several days Becoming easily annoyed or irritable: 1 = Several days Feeling afraid as if something awful might happen: 0 = Not at all Total LORENZO-7 score (0-4 normal; 5-9 mild; 10-14 moderate; 15-21 severe): 6 Source: Developed by Drs. Abram Whitt, China Bentley, Ignacio Ma and colleagues, with an educational rommel from [employer]. Review of Systems Const All systems reviewed & are unremarkable except as noted in HPI and below Physical exam (Primary Care) Vital Signs: Last Vital Signs Pulse 64 07/14/24 07:22 BP 142/86 H 07/14/24 07:22 Pulse Ox 98 07/14/24 07:22 Oxygen Delivery Method Room Air 07/14/24 07:22 BMI result Body Mass Index 27.1 Tobacco/Smoking Status: Tobacco use Status Tobacco use date assessed 07/14/24 07/14/24 07:30 Patient Tobacco Use Status Former Tobacco user 07/14/24 07:30 Tobacco use type Cigarette 07/14/24 07:30 e-Cigarette/Vaping Use Never Used 07/14/24 07:30 PHQ-9: PHQ-9 Score PHQ-9: Total score 11 07/14/24 07:37 Depression Screening Interpretation: Positive Thrive Assessment: Date of Thrive Assessment Date Thrive assessed 06/07/24 07/14/24 07:30 Currently or been in a relationship where the following occur: I choose not to answer Resp Effort & Inspection: normal respiratory effort Auscultation: clear to auscultation bilaterally Cardio Rhythm: regular rhythm Heart sounds: S1 normal heart sound present and S2 normal heart sound present Coding Level of Care Code Est Pt Level 4 (49284) Diagnoses Stage 3b chronic kidney disease N18.32 Chronic kidney disease stage 3 subtype: stage 3b (GFR 30-44) Time Spent (min) 20 Assessment & Plan Assessment & Plan (1) CKD (chronic kidney disease) stage 3, GFR 30-59 ml/min: Code(s): N18.30 - Chronic kidney disease, stage 3 unspecified Category: Medical Qualifiers: Chronic kidney disease stage 3 subtype: stage 3b (GFR 30-44) Qualified Code(s): N18.32 - Chronic kidney disease, stage 3b Plan: Scheduled with [facility] for Left Renal B/x (left adrenal gland nodule). Pt does not remember the date.
== END 2024-07-14 07:51 | disposition home or self-care (01) ==
LOC: HO.HMCH 07:14
PROVIDERS: PCP Internal Medicine; Visit Provider Nurse Practitioner Family
DX: N18.32 Chronic kidney disease, stage 3b (principal)

== ENCOUNTER → 2024-07-14 07:13 | Outpatient (BNVA) | payer MEDICARE, SELFPAY | PROVIDERS: PCP Internal Medicine; Visit Provider Nurse Practitioner Family | DX: N18.32 Chronic kidney disease, stage 3b (principal) | CPT/HCPCS: 99212 ==

== ENCOUNTER → 2024-07-18 23:59 | Outpatient (BNV) | payer MEDICARE, SELFPAY | PROVIDERS: PCP Internal Medicine; Visit Provider Internal Medicine | DX: I13.0 Hypertensive heart and chronic kidney disease with heart failure and stage 1 through stage 4 chronic kidney disease, or unspecified chronic kidney disease (principal); I50.33 Acute on chronic diastolic (congestive) heart failure; E11.22 Type 2 diabetes mellitus with diabetic chronic kidney disease; N18.4 Chronic kidney disease, stage 4 (severe) | CPT/HCPCS: G0179 ==

== ENCOUNTER 2024-07-21 14:40 | Outpatient (AMB) | payer MEDICARE, SELFPAY ==
--- OUTSIDE RECORDS SUMMARY | 2024-07-21 14:43 | XMS_ITS | Clinical Summary ---
Author Organization [facility] Address [address] [place] [address] Phone Care Team Providers Care Captain Fire Prevention Bureau Name Role Phone Olga Mitchell MD Primary Care Provider [phone] Allergies No known active allergies Medications aspirin [...] disease without heart failure 05/03/2020 Proteinuria 05/03/2020 Encounters Date Type Department Care Team Description 07/10/2024 Telephone [facility] [address] [address] Jason Griffin MD from Last 3 Months Family History Medical History Relation Comments Hypertension [...] 06/07/2020 3:08 PM EDT Plan of Treatment Upcoming Encounters Date Type Department Care Team (Late st Contact Info) Description 07/28/2024 9:45 AM EDT Office Visit [facility] [address] [facility] [address] [place] [address] Jason Griffin MD [address] [facility] [address] [place] [address] Health Maintenance Due Date Last Done Comments Pneumococcal Vaccine: 50+ Ye ars (1 of 2 - PCV) 12/11/1979 Colorectal Cancer Screening: Annual FOBT 2009 Colorectal [...] mg/dl RTAMA 05/02/2018 us Rtama Conversion LAB [id number] LICITED RESULTS Final Result RTAMA from Last 3 Months or Most Recently Relevant to Health Maintenance Insurance [facility] Medicare Care Teams Captain Fire Prevention Bureau Relationship Specialty Start Date End Date Olga Mitchell MD [facility] [place] [address] [place], [place] PCP - General 03/11/20
--- NOTE | 2024-07-21 15:12 | HO.NEPHOV_ITS ---
Vital Signs 07/21/24 15:15 Height 5 ft 6 in Weight 170 lb 4 oz BMI 27.5 BP 164/90 H Blood Pressure Location Lt brachial Position Sitting Pulse 60 Pulse Source Pulse Oximeter Pulse Oximetry (%) 100 Oxygen Delivery Method Room Air Intake Visit Reasons: Pt missed morning appt Raiser Helper Required: Yes Raiser Helper Language: Medical Recruiter Services: Raiser Helper Offered & Declined ([facility] Raiser Helper services refused) Accompanied by: Self / Same As Patient Allergies lisinopril Adverse Reaction (Intermediate, Verified 07/21/24 15:15) cough HPI Comments Details: I had the pleasure of seeing Hang for proteinuric CKD with hypertension. He is a 63 year old male presenting with diabetes, hypertension as well as ischemic cardiomyopathy along with chronic kidney disease stage 4 and proteinuria. His proteinuria has significantly worsened, with current levels noted to exceed 2000 mg. He does not have any epistaxis, photosensitivity, skin rashes, joint swellings, hematemesis, melena, nausea, vomiting, diarrhea, orthostatic symptoms, chest pain, shortness of breath, paroxysmal nocturnal dyspnea, orthopnea, excessive intake of nonsteroidal anti-inflammatories, new bone or back pain. His recent serum creatinine has been over 7.0 after he developed ATN. His UO is good and he has no uremic symptoms. COUNT INCLUDES [facility] Medical History Pneumonia due to COVID-19 virus Pre-op examination Positive for macroalbuminuria Ischemic cardiomyopathy STEMI (ST elevation myocardial infarction) Type 2 diabetes mellitus with other diabetic kidney complication Proteinuria Hyperlipidemia LDL goal <70 Essential hypertension Surgical History History of open heart surgery Hx of CABG Family History Father CVD (cardiovascular disease) HTN (hypertension) Diabetes Mother CVD (cardiovascular disease) Diabetes Brother Diabetes HTN (hypertension) CVD (cardiovascular disease) Social History Household Members: None Housing: Apartment Alcohol intake: current Alcohol intake frequency: holidays/special occasions only Alcohol type: wine Patient Tobacco Use Status: Former Tobacco user Tobacco use type: Cigarette e-Cigarette/Vaping Use: Never Used Second Hand Smoke Exposure: No service: No Current occupational status: unemployed Cognitive needs: No Hearing needs: No Vision needs: Yes Review of Systems Const All systems reviewed & are unremarkable except as noted in HPI and below Physical Exam Vital Signs: Last Vital Signs Pulse 60 07/21/24 15:15 BP 164/90 H 07/21/24 15:15 Pulse Ox 100 07/21/24 15:15 Oxygen Delivery Method Room Air 07/21/24 15:15 BMI result Body Mass Index 27.5 Const General: comfortable and no acute distress Orientation/consciousness: patient oriented x3 HEENT Head: Yes normocephalic Mouth: Normal oral and palatal mucosa present Eyes EOM: EOMs intact bilaterally Neck Neck: Yes supple Resp Auscultation: clear to auscultation bilaterally Cardio Jugular venous distension: no JVD Rate: regular rate GI Palpation (GI): Soft to palpation Auscultation: normal bowel sounds General: Yes no CVA tenderness Back/Spine/Pelvis Back: no CVA tenderness Skin General skin exam: no rashes or lesions noted Neuro General: patient oriented x3 and moves all extremities Extrem General: Yes no pedal edema Assessment & Plan Assessment & Plan (1) MARTHA (acute kidney injury): Code(s): N17.9 - Acute kidney failure, unspecified Category: Medical (2) Proteinuria due to type 2 diabetes mellitus: Code(s): E11.29 - Type 2 diabetes mellitus with other diabetic kidney complication; R80.9 - Proteinuria, unspecified Category: Medical (3) CKD stage 4 due to type 2 diabetes mellitus: Code(s): E11.22 - Type 2 diabetes mellitus with diabetic chronic kidney disease; N18.4 - Chronic kidney disease, stage 4 (severe) Category: Medical Plan Hang has 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 He recently had MARTHA on CKD likely due to ATN. He also likely has renovascular disease especially given background of coronary artery disease as well as ischemic cardiomyopathy. He has been started on ARB as well as SGLT2 inhibitor recently which has been put on hold after his recent MARTHA. He should maintain good hydration and avoid nonsteroidal anti-inflammatories. His serum creatinine has improved to 7.0 and has good UO without any uremic symptoms. There is no need for any renal replacement therpay now. He may need a renal biopsy. Further management is pending evolving data. Answered all questions and follow- up appointment was given. Orders: Orders IRON PROFILE 1 Week N17.9 - Acute kidney failure, unspecified Electrolytes 1 Week N17.9 - Acute kidney failure, unspecified Creatinine 1 Week N17.9 - Acute kidney failure, unspecified Complete Blood Count Auto Diff 1 Week N17.9 - Acute kidney failure, unspecified Ferritin 1 Week N17.9 - Acute kidney failure, unspecified Blood Urea Nitrogen 1 Week N17.9 - Acute kidney failure, unspecified Medications: New amlodipine 5 mg PO DAILY 30 tabs 3RF Coding Level of Care Code Est Pt Level 4 (17535) Diagnoses MARTHA (acute kidney injury) N17.9 Proteinuria due to type 2 diabetes mellitus E11.29; R80.9 CKD stage 4 due to type 2 diabetes mellitus E11.22; N18.4
[2024-07-21 15:15] VITALS: BP 164/90; PULSE 60; O2SAT 100; BMI 27.5
== END 2024-07-21 15:37 | disposition home or self-care (01) ==
LOC: HO.HKA 14:41
PROVIDERS: PCP Internal Medicine; Visit Provider Internal Medicine Nephrology
DX: N17.9 Acute kidney failure, unspecified (principal); E11.29 Type 2 diabetes mellitus with other diabetic kidney complication; R80.9 Proteinuria, unspecified; E11.22 Type 2 diabetes mellitus with diabetic chronic kidney disease; N18.4 Chronic kidney disease, stage 4 (severe)
CPT/HCPCS: 99214

== ENCOUNTER → 2024-07-21 14:40 | Outpatient (BNVA) | payer MEDICARE, SELFPAY | PROVIDERS: PCP Internal Medicine; Visit Provider Internal Medicine Nephrology | DX: E11.22 Type 2 diabetes mellitus with diabetic chronic kidney disease (principal); E11.29 Type 2 diabetes mellitus with other diabetic kidney complication; I12.9 Hypertensive chronic kidney disease with stage 1 through stage 4 chronic kidney disease, or unspecified chronic kidney disease; I25.5 Ischemic cardiomyopathy; N18.4 Chronic kidney disease, stage 4 (severe); N17.9 Acute kidney failure, unspecified; R80.9 Proteinuria, unspecified | CPT/HCPCS: 99212 ==

== ENCOUNTER 2024-07-25 12:33 | Outpatient (REF) | payer MEDICARE, SELFPAY ==
--- OUTSIDE RECORDS SUMMARY | 2024-07-25 12:38 | XMS_ITS | Clinical Summary ---
Author Organization [facility] Address [address] [place] [address] Phone Care Team Providers Care Assistant Gm Of Content & Delivery Name Role Phone Olga Mitchell MD Primary Care Provider [phone] Allergies No known active allergies Medications aspirin [...] 07/10/2024 Telephone [facility] [address] [address] Jason Griffin MD from Last 3 Months [...] Office Visit [facility] [address] [facility] [address] [place] [address] Jason Griffin MD [address] [facility] [address] [place] [address] Health Maintenance Due Date Last [...] mg/dl RTAMA 05/02/2018 us Rtama Conversion LAB [id number] LICITED RESULTS Final Result RTAMA from Last 3 Months or Most Recently Relevant to Health Maintenance Insurance [facility] Medicare Care Teams Assistant Gm Of Content & Delivery Relationship Specialty Start Date End Date Olga Mitchell MD [facility] [place] [address] [place], [place] PCP - General 03/11/20
[2024-07-25 12:46] LABS: MANUAL DIFF FLAG NO
[2024-07-25 13:35] LABS: Prothrombin Time 11.1 SEC (10.9-12.4)
[2024-07-25 13:39] LABS: Basophils Percent Auto 0.8 % (0-2); Eosinophils Absolute Auto 0.2 X10*3/uL (0.0-0.4); Eosinophils Percent Auto 4.8 % (0-4); Hematocrit 30.5 % (42.0-52.0); Hemoglobin 9.7 g/dl (14.0-18.0); Imm Gran Abs Auto 0.01 X10*3/uL (0.00-0.03); Imm Gran Pct Auto 0.3 % (0.0-0.4); Lymphocytes Percent Auto 26.5 % (20-40); Mean Corpuscular HGB Conc 31.8 g/dl (31.0-36.0); Mean Corpuscular Hemoglobin 29.4 pg (27.0-33.0); Mean Corpuscular Volume 92.4 fL (80.0-98.0); Monocytes Absolute Auto 0.4 X10*3/uL (0.1-1.2); Monocytes Percent Auto 9.8 % (2-11); Neutrophils Absolute Auto 2.2 x10*3/uL (2.0-8.3); Neutrophils Percent Auto 57.8 % (45-73); Platelet Count 221 X10*3/uL (160-400); Red Cell Distribution Width 13.7 % (11.0-16.0); White Blood Count 3.8 X10*3/uL (4.8-10.8)
[2024-07-25 14:05] LABS: Parathyroid Hormone Intact 563.2 pg/mL (8.7-77.1)
[2024-07-25 14:19] LABS: Ferritin 268 ng/mL (20-250); Vitamin D 25-OH Total 33.9 ng/mL (>30)
[2024-07-25 14:22] LABS: Anion Gap 17 (12-20); Blood Urea Nitrogen 78 mg/dL (9-16); Calcium 9.8 mg/dL (8.4-10.2); Carbon Dioxide 23 mmol/L (22-29); Chloride 105 mmol/L (96-108); Iron 176 mcg/dL (45-160); Percent Iron Saturation 53 % (15-50); Phosphorus 5.8 mg/dL (2.7-4.5); Sodium 140 mmol/L (135-145); Total Iron Binding Capacity 329 mcg/dL (228-428); Unsaturated Iron Binding 153 ug/dL
[2024-07-25 14:28] LABS: Estimated Glomerular Filt Rate 9
[2024-07-26 09:17] LABS: HBc Num1 0.06 S/CO (0.00-0.79); HBsAGNum1 0.18 S/CO (0.00-0.99); Hepatitis B Core Antibody Nonreactive (Nonreactive); Hepatitis B Surface Antigen Negative (Negative)
[2024-07-26 16:33] LABS: Anti DNA DS Antibody <1 IU/mL; Anti Glomerular Basement Memb <1.0 AI; Myeloperoxidase Antibody <1.0 AI; Proteinase 3 PR3 Antibodies <1.0 AI
[2024-07-27 07:33] LABS: IgA 272 mg/dL (70-320); IgG 1210 mg/dL (600-1540); IgM 56 mg/dL (50-300)
[2024-07-27 12:44] LABS: Complement C3 155 mg/dL (82-185)
[2024-08-02 17:13] LABS: Phospholipase A2 IgG ELISA <4 RU/mL; Phospholipase A2 IgG IFA NEGATIVE (NEGATIVE)
== END 2024-07-25 12:34 | disposition home or self-care (01) ==
LOC: HO.LAB 12:33
PROVIDERS: PCP Internal Medicine; Visit Provider Internal Medicine Nephrology
DX: E11.29 Type 2 diabetes mellitus with other diabetic kidney complication (principal); R80.9 Proteinuria, unspecified; N17.9 Acute kidney failure, unspecified
CPT/HCPCS: 36415; 80051; 82306; 82310; 82565; 82728; 82784; 83520; 83540; 83970; 84100; 84520; 85025; 85610; 86021; 86160; 86225; 86255; 86334; 86704; 87340

== ENCOUNTER 2024-07-28 15:35 | Outpatient (AMB) | payer MEDICARE, SELFPAY ==
--- NOTE | 2024-07-28 15:38 | HO.NEPHOV ---
Vital Signs 07/28/24 15:39 Height 5 ft 6 in Weight 168 lb 8 oz BMI 27.2 BP 132/70 Blood Pressure Location Lt brachial Position Sitting Pulse 70 Pulse Source Pulse Oximeter Pulse Oximetry (%) 98 Oxygen Delivery Method Room Air Intake Visit Reasons: 1wk follow-up w/labs-Conf Configuration Management Administrator Required: Yes Configuration Management Administrator Language: Customer Account Technician Services: Configuration Management Administrator Present Configuration Management Administrator Name: Juan [id number] Information Interpreted: clinical only Accompanied by: Self / Same As Patient Allergies lisinopril Adverse Reaction (Intermediate, Verified 07/28/24 15:39) cough HPI Comments Details: I had the pleasure of seeing Hang for proteinuric CKD with hypertension. He is a 63 year old male presenting with diabetes, hypertension as well as ischemic cardiomyopathy along with chronic kidney disease stage 4 and proteinuria. His proteinuria has significantly worsened, with current levels noted to exceed 2000 mg. He does not have any epistaxis, photosensitivity, skin rashes, joint swellings, hematemesis, melena, nausea, vomiting, diarrhea, orthostatic symptoms, chest pain, shortness of breath, paroxysmal nocturnal dyspnea, orthopnea, excessive intake of nonsteroidal anti-inflammatories, new bone or back pain. His recent serum creatinine has been over 7.0 after he developed ATN. His UO is good and he has no uremic symptoms. [facility] Medical History Pneumonia due to COVID-19 virus Pre-op examination Positive for macroalbuminuria Ischemic cardiomyopathy STEMI (ST elevation myocardial infarction) Type 2 diabetes mellitus with other diabetic kidney complication Proteinuria Hyperlipidemia LDL goal <70 Essential hypertension Surgical History History of open heart surgery Hx of CABG Family History Father CVD (cardiovascular disease) HTN (hypertension) Diabetes Mother CVD (cardiovascular disease) Diabetes Brother Diabetes HTN (hypertension) CVD (cardiovascular disease) Social History Household Members: None Housing: Apartment Alcohol intake: current Alcohol intake frequency: holidays/special occasions only Alcohol type: wine Patient Tobacco Use Status: Former Tobacco user Tobacco use type: Cigarette e-Cigarette/Vaping Use: Never Used Second Hand Smoke Exposure: No service: No Current occupational status: unemployed Cognitive needs: No Hearing needs: No Vision needs: Yes Review of Systems Const All systems reviewed & are unremarkable except as noted in HPI and below Physical Exam Vital Signs: Last Vital Signs Pulse 70 07/28/24 15:39 BP 132/70 07/28/24 15:39 Pulse Ox 98 07/28/24 15:39 Oxygen Delivery Method Room Air 07/28/24 15:39 BMI result Body Mass Index 27.2 Const General: comfortable and no acute distress Orientation/consciousness: patient oriented x3 HEENT Head: Yes normocephalic Mouth: Normal oral and palatal mucosa present Eyes EOM: EOMs intact bilaterally Neck Neck: Yes supple Resp Auscultation: clear to auscultation bilaterally Cardio Jugular venous distension: no JVD Rate: regular rate GI Palpation (GI): Soft to palpation Auscultation: normal bowel sounds General: Yes no CVA tenderness Back/Spine/Pelvis Back: no CVA tenderness Skin General skin exam: no rashes or lesions noted Neuro General: patient oriented x3 and moves all extremities Extrem General: Yes no pedal edema Results Reviewed Nephrology Results: Hgb 9.7 g/dl (14.0-18.0) L 07/25/24 WBC 3.8 X10*3/uL (4.8-10.8) L 07/25/24 Plt Count 221 X10*3/uL (160-400) 07/25/24 Sodium 140 mmol/L (135-145) 07/25/24 Potassium 5.0 mmol/L (3.3-5.1) 07/25/24 Chloride 105 mmol/L (96-108) 07/25/24 Carbon Dioxide 23 mmol/L (22-29) 07/25/24 BUN 78 mg/dL (9-16) H 07/25/24 Creatinine 6.30 mg/dL (0.5-1.4) H* 07/25/24 Calcium 9.8 mg/dL (8.4-10.2) 07/25/24 Phosphorus 5.8 mg/dL (2.7-4.5) H 07/25/24 PTH Intact 563.2 pg/mL (8.7-77.1) H 07/25/24 Assessment & Plan Assessment & Plan (1) MARTHA (acute kidney injury): Code(s): N17.9 - Acute kidney failure, unspecified Category: Medical (2) CKD stage 4 due to type 2 diabetes mellitus: Code(s): E11.22 - Type 2 diabetes mellitus with diabetic chronic kidney disease; N18.4 - Chronic kidney disease, stage 4 (severe) Category: Medical (3) Proteinuria due to type 2 diabetes mellitus: Code(s): E11.29 - Type 2 diabetes mellitus with other diabetic kidney complication; R80.9 - Proteinuria, unspecified Category: Medical (4) Anemia in chronic kidney disease: Code(s): N18.9 - Chronic kidney disease, unspecified; D63.1 - Anemia in chronic kidney disease Category: Medical Qualifiers: Chronic kidney disease stage: stage 4 (GFR 15-29) Qualified Code(s): N18.4 - Chronic kidney disease, stage 4 (severe); D63.1 - Anemia in chronic kidney disease (5) Secondary hyperparathyroidism (of renal origin): Code(s): N25.81 - Secondary hyperparathyroidism of renal origin Category: Medical Plan Hang has 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 He recently had MARTHA on CKD likely due to ATN. He also likely has renovascular disease especially given background of coronary artery disease as well as ischemic cardiomyopathy. He has been started on ARB as well as SGLT2 inhibitor recently which has been put on hold after his recent MARTHA. He should maintain good hydration and avoid nonsteroidal anti-inflammatories. His serum creatinine has improved and has good UO without any uremic symptoms. There is no need for any renal replacement therpay now. He may need a renal biopsy. Further management is pending evolving data. Answered all questions and follow-up appointment was given. Orders: Orders Creatinine 2 Weeks N17.9 - Acute kidney failure, unspecified Blood Urea Nitrogen 2 Weeks N17.9 - Acute kidney failure, unspecified Electrolytes 2 Weeks N17.9 - Acute kidney failure, unspecified Coding Level of Care Code Est Pt Level 4 (02412) Diagnoses MARTHA (acute kidney injury) N17.9 CKD stage 4 due to type 2 diabetes mellitus E11.22; N18.4 Proteinuria due to type 2 diabetes mellitus E11.29; R80.9 Anemia in stage 4 chronic kidney disease N18.4; D63.1 Chronic kidney disease stage: stage 4 (GFR 15-29) Secondary hyperparathyroidism (of renal origin) N25.81
--- OUTSIDE RECORDS SUMMARY | 2024-07-28 15:38 | XMS_ITS | Clinical Summary ---
Author Organization [facility] Address [address] [place] [address] Phone Care Team Providers Care [employer] Name Role Phone Olga Mitchell MD Primary Care Provider [phone] Allergies No known active allergies Medications aspirin [...] 07/10/2024 Telephone [facility] [address] [phone] Jason Griffin MD from Last 3 Months [...] Procedure Name Priority Date/Time Associated Diagnosis Comments RENAL FUNCTION PANEL (EXTERNAL LAB ENTRY) Routine 07/10/2024 BLOOD PANEL (HC) Routine 05/02/2018 12:0 0 AM EST from Last 3 Months or Most Recently Relevant to Health Maintenance Results * Renal Function Panel (External Lab) (07/10/2024) Glucose 70 mg/dL BUN 124 mg/dL eGFR 8 Sodium 140 mEq/L Potassium 5.2 mEq/L Chloride 104 Carbon Dioxide 19 mmol/L Calcium 9.5 mg/dL Phosphorus, Serum 8.1 mg/dL Albumin (Blood) 3.9 g/dL Creatinine 7.06 mg/dL Anion Gap 17 Blood 07/10/2024 us Historical Provider MD LAB BLOOD ORDERABLES Christie l Result * (ABNORMAL) Blood Panel (05/02/2018 12:00 AM [...] mg/dl RTAMA 05/02/2018 us Rtama Conversion LAB [id number] LICITED RESULTS Final Result RTAMA from Last 3 Months or Most Recently Relevant to Health Maintenance Insurance [facility] Medicare Care Teams [employer] Relationship Specialty Start Date End Date Olga Mitchell MD [facility] INTERNAL IN [address] [place], [place] PCP - General 03/11/20
[2024-07-28 15:39] VITALS: BP 132/70; PULSE 70; O2SAT 98; BMI 27.2
== END 2024-07-28 15:56 | disposition home or self-care (01) ==
LOC: HO.HKA 15:36
PROVIDERS: PCP Internal Medicine; Visit Provider Internal Medicine Nephrology
DX: N17.9 Acute kidney failure, unspecified (principal); E11.22 Type 2 diabetes mellitus with diabetic chronic kidney disease; N18.4 Chronic kidney disease, stage 4 (severe); E11.29 Type 2 diabetes mellitus with other diabetic kidney complication; R80.9 Proteinuria, unspecified; D63.1 Anemia in chronic kidney disease; N25.81 Secondary hyperparathyroidism of renal origin
CPT/HCPCS: 99214

== ENCOUNTER → 2024-07-28 15:35 | Outpatient (BNVA) | payer MEDICARE, SELFPAY | PROVIDERS: PCP Internal Medicine; Visit Provider Internal Medicine Nephrology | DX: E11.22 Type 2 diabetes mellitus with diabetic chronic kidney disease (principal); N18.4 Chronic kidney disease, stage 4 (severe); D63.1 Anemia in chronic kidney disease; N17.9 Acute kidney failure, unspecified; E11.29 Type 2 diabetes mellitus with other diabetic kidney complication; R80.9 Proteinuria, unspecified; N25.81 Secondary hyperparathyroidism of renal origin | CPT/HCPCS: 99212 ==

== ENCOUNTER 2024-08-10 11:07 | Outpatient (REF) | payer MEDICARE, SELFPAY ==
[2024-08-10 11:23] LABS: MANUAL DIFF FLAG NO
[2024-08-10 11:36] LABS: Basophils Percent Auto 0.8 % (0-2); Eosinophils Absolute Auto 0.1 X10*3/uL (0.0-0.4); Eosinophils Percent Auto 3.3 % (0-4); Hematocrit 29.7 % (42.0-52.0); Hemoglobin 9.4 g/dl (14.0-18.0); Imm Gran Abs Auto 0.01 X10*3/uL (0.00-0.03); Imm Gran Pct Auto 0.3 % (0.0-0.4); Lymphocytes Absolute Auto 1.4 X10*3/uL (1.2-4.9); Mean Corpuscular HGB Conc 31.6 g/dl (31.0-36.0); Mean Corpuscular Hemoglobin 29.4 pg (27.0-33.0); Mean Corpuscular Volume 92.8 fL (80.0-98.0); Mean Platelet Volume 11.6 fL (9.4-12.4); Monocytes Absolute Auto 0.5 X10*3/uL (0.1-1.2); Monocytes Percent Auto 12.9 % (2-11); Neutrophils Absolute Auto 1.8 x10*3/uL (2.0-8.3); Neutrophils Percent Auto 46.7 % (45-73); Platelet Count 263 X10*3/uL (160-400); Red Cell Distribution Width 13.9 % (11.0-16.0); White Blood Count 3.9 X10*3/uL (4.8-10.8)
[2024-08-10 12:04] LABS: Anion Gap 13 (12-20); Blood Urea Nitrogen 52 mg/dL (9-16); Carbon Dioxide 25 mmol/L (22-29); Chloride 105 mmol/L (96-108); Estimated Glomerular Filt Rate 9; Potassium 5.9 mmol/L (3.3-5.1); Sodium 137 mmol/L (135-145)
--- OUTSIDE RECORDS SUMMARY | 2024-08-10 13:03 | XMS_ITS | Clinical Summary ---
Author Organization [facility] Address [address] [place] [address] Phone Care Team Providers Care Commercial Interior Designer Name Role Phone Olga Mitchell MD Primary [...] 07/10/2024 Telephone [facility] [address] [phone] Jason Griffin MD from Last 3 Months [...] mg/dl RTAMA 05/02/2018 us Rtama Conversion LAB [id number] LICITED RESULTS Final Result RTAMA from Last 3 Months or Most Recently Relevant to Health Maintenance Insurance [facility] Medicare Care Teams Commercial Interior Designer Relationship Specialty Start Date End Date Olga Mitchell MD [facility] INTER[facility] [address] [place], [place] PCP - General 03/11/20
== END 2024-08-10 11:08 | disposition home or self-care (01) ==
LOC: HO.LAB 11:07
PROVIDERS: PCP Internal Medicine; Visit Provider Internal Medicine Nephrology
DX: E11.29 Type 2 diabetes mellitus with other diabetic kidney complication (principal); R80.9 Proteinuria, unspecified; N17.9 Acute kidney failure, unspecified
CPT/HCPCS: 36415; 80051; 82565; 84520; 85025

== ENCOUNTER 2024-08-18 15:29 | Outpatient (AMB) | payer MEDICARE, SELFPAY ==
--- OUTSIDE RECORDS SUMMARY | 2024-08-18 15:32 | XMS_ITS | Clinical Summary ---
Author Organization [facility] Address [address] [place] [address] Phone Care Team Providers Care Maori Liaison Adviser Name Role Phone Olga Mitchell MD Primary Care Provider [phone] Allergies No known active allergies Medications aspirin [...] Telephone [facility] [address] [phone] Jason Griffin MD from Last 3 Months [...] mg/dl RTAMA 05/02/2018 us Rtama Conversion LAB [id number] LICITED RESULTS Final Result RTAMA from Last 3 Months or Most Recently Relevant to Health Maintenance Insurance [facility] [place] [address] Care Teams Maori Liaison Adviser Relationship Specialty Start Date End Date Olga Mitchell MD [facility] INTER[facility] [place] [address] [place], [place] PCP - General 03/11/20
--- NOTE | 2024-08-18 15:33 | HO.NEPHOV_ITS ---
Vital Signs 08/18/24 15:38 Height 5 ft 6 in Weight 171 lb 2 oz BMI 27.6 BP 122/70 Blood Pressure Location Lt brachial Position Sitting Pulse 65 Pulse Source Pulse Oximeter Pulse Oximetry (%) 97 Oxygen Delivery Method Room Air Intake Visit Reasons: 3wk follow-up w/labs-Conf Certified Paralegal Required: Yes Certified Paralegal Language: Ship Propeller Finisher Services: Certified Paralegal Present Certified Paralegal Name: Aly [id number] Information Interpreted: clinical only Accompanied by: Self / Same As Patient Allergies lisinopril Adverse Reaction (Intermediate, Verified 08/18/24 15:38) cough HPI Comments Details: Follow up appointment for proteinuric CKD with hypertension. He is a 63 year old male with diabetes, hypertension, ischemic cardiomyopathy along with chronic kidney disease stage 4 and proteinuria. His proteinuria has significantly worsened, with current levels noted to exceed 2000 mg. He does not have any epistaxis, photosensitivity, skin rashes, joint swellings, hematemesis, melena, nausea, vomiting, diarrhea, orthostatic symptoms, chest pain, shortness of breath, paroxysmal nocturnal dyspnea, orthopnea, excessive intake of nonsteroidal anti-inflammatories, new bone or back pain. developed ATN in June, urine output good, no uremic symptoms recent serum creatinine 7.64 on 07/07 7.57 on 07/08 7.40 on 07/09 7.06 on 07/10 6.30 on 07/25 6.45 on 08/10 urine protein/creatinine 2.59 on 07/09 reports urine output is improved, was minimal amount and now is better no chest pain, no shortness of breath, no swelling or flank pain denies urinary symptoms, reports normal urine output sugars have been better- 150 this a.m. when he woke has not been taking jardiance, has been stopped since he left [facility] has not been taking NSAIDs [facility] Medical History Pneumonia due to COVID-19 virus Pre-op examination Positive for macroalbuminuria Ischemic cardiomyopathy STEMI (ST elevation myocardial infarction) Type 2 diabetes mellitus with other diabetic kidney complication Proteinuria Hyperlipidemia LDL goal <70 Essential hypertension Surgical History History of open heart surgery Hx of CABG Family History Father CVD (cardiovascular disease) HTN (hypertension) Diabetes Mother CVD (cardiovascular disease) Diabetes Brother Diabetes HTN (hypertension) CVD (cardiovascular disease) Social History Household Members: None Housing: Apartment Alcohol intake: current Alcohol intake frequency: holidays/special occasions only Alcohol type: wine Patient Tobacco Use Status: Former Tobacco user Tobacco use type: Cigarette e-Cigarette/Vaping Use: Never Used Second Hand Smoke Exposure: No service: No Current occupational status: unemployed Cognitive needs: No Hearing needs: No Vision needs: Yes Review of Systems Const Reports no additional complaints ENT Reports no additional complaints Card Denies chest pain, Denies pedal edema, Denies leg edema, Denies lightheadedness and Denies dyspnea Resp Denies dyspnea GI Denies abdominal pain, Denies constipation, Denies diarrhea, Denies nausea and Denies vomiting Denies hematuria, Denies oliguria, Denies dysuria and Denies flank pain Musc Denies arthralgias and Denies joint swelling Skin/Breast Denies rash Neuro Details: no tremor Denies tremor(s) Physical Exam Vital Signs: Last Vital Signs Pulse 65 08/18/24 15:38 BP 122/70 08/18/24 15:38 Pulse Ox 97 08/18/24 15:38 Oxygen Delivery Method Room Air 08/18/24 15:38 BMI result Body Mass Index 27.6 Const General: comfortable, no acute distress, alert and awake Resp Effort & Inspection: normal respiratory effort and able to speak in complete sentences Auscultation: clear to auscultation bilaterally Cardio Rate: regular rate Rhythm: regular rhythm Heart sounds: S1 normal heart sound present and S2 normal heart sound present GI Palpation (GI): Soft to palpation and nontender General: Yes no CVA tenderness Back/Spine/Pelvis Back: no CVA tenderness Skin Rashes: no rashes Neuro Other: no asterixis, no tremor Extrem General: No edema Results Reviewed Nephrology Results: Hgb, (14.0-18.0) 9.4 g/dl L 08/10/24 WBC, (4.8-10.8) 3.9 X10*3/uL L 08/10/24 Plt Count, (160-400) 263 X10*3/uL 08/10/24 Sodium, (135-145) 137 mmol/L 08/10/24 Potassium, (3.3-5.1) 5.9 mmol/L H 08/10/24 Chloride, (96-108) 105 mmol/L 08/10/24 Carbon Dioxide, (22-29) 25 mmol/L 08/10/24 BUN, (9-16) 52 mg/dL H 08/10/24 Creatinine, (0.5-1.4) 6.45 mg/dL H* 08/10/24 Calcium, (8.4-10.2) 9.8 mg/dL Δ 07/25/24 Phosphorus, (2.7-4.5) 5.8 mg/dL H 07/25/24 PTH Intact, (8.7-77.1) 563.2 pg/mL H 07/25/24 Renal US 12/26/19 Assessment & Plan Assessment & Plan (1) AMRTHA (acute kidney injury): Code(s): N17.9 - Acute kidney failure, unspecified Category: Medical (2) CKD stage 4 due to type 2 diabetes mellitus: Code(s): E11.22 - Type 2 diabetes mellitus with diabetic chronic kidney disease; N18.4 - Chronic kidney disease, stage 4 (severe) Category: Medical (3) Proteinuria due to type 2 diabetes mellitus: Code(s): E11.29 - Type 2 diabetes mellitus with other diabetic kidney complication; R80.9 - Proteinuria, unspecified Category: Medical (4) Anemia in chronic kidney disease: Code(s): N18.9 - Chronic kidney disease, unspecified; D63.1 - Anemia in chronic kidney disease Category: Medical Qualifiers: Chronic kidney disease stage: stage 4 (GFR 15-29) Qualified Code(s): N18.4 - Chronic kidney disease, stage 4 (severe); D63.1 - Anemia in chronic kidney disease (5) Secondary hyperparathyroidism (of renal origin): Code(s): N25.81 - Secondary hyperparathyroidism of renal origin Category: Medical Plan Pt has proteinuric CKD 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 He also likely has renovascular disease especially given background of coronary artery disease as well as ischemic cardiomyopathy. He should maintain good hydration and avoid nonsteroidal anti-inflammatories. His serum creatinine has improved and has good UO without any uremic symptoms. There is no indication for renal replacement at this time. He may need a renal biopsy. Further management is pending evolving data. Answered all questions and follow-up appointment was given. He will follow up with Dr Nobles in 3 weeks. Seen patient with Zuly Law NP. Agree plan as outlined. Angel Nobles MD Orders: Orders Parathyroid Hormone Intact 2 Weeks D63.1 - Anemia in chronic kidney disease, E11.22 - Type 2 diabetes mellitus with diabetic chronic kidney disease, E11.29 - Type 2 diabetes mellitus with other diabetic kidney complication, N17.9 - Acute kidney failure, unspecified, N18.4 - Chronic kidney disease, stage 4 (severe), N25.81 - Secondary hyperparathyroidism of renal origin, R80.9 - Proteinuria, unspecified Basic Metabolic Panel 2 Weeks N18.30 - Chronic kidney disease, stage 3 unspecified Protein Creatinine Ratio, Ur 2 Weeks D63.1 - Anemia in chronic kidney disease, E11.22 - Type 2 diabetes mellitus with diabetic chronic kidney disease, E11.29 - Type 2 diabetes mellitus with other diabetic kidney complication, N17.9 - Acute kidney failure, unspecified, N18.4 - Chronic kidney disease, stage 4 (severe), N25.81 - Secondary hyperparathyroidism of renal origin, R80.9 - Proteinuria, unspecified UA w Microscopic 2 Weeks D63.1 - Anemia in chronic kidney disease, E11.22 - Type 2 diabetes mellitus with diabetic chronic kidney disease, E11.29 - Type 2 diabetes mellitus with other diabetic kidney complication, N17.9 - Acute kidney failure, unspecified, N18.4 - Chronic kidney disease, stage 4 (severe), N25.81 - Secondary hyperparathyroidism of renal origin, R80.9 - Proteinuria, unspecified Phosphorus 2 Weeks D63.1 - Anemia in chronic kidney disease, E11.22 - Type 2 diabetes mellitus with diabetic chronic kidney disease, E11.29 - Type 2 diabetes mellitus with other diabetic kidney complication, N17.9 - Acute kidney failure, unspecified, N18.4 - Chronic kidney disease, stage 4 (severe), N25.81 - Secondary hyperparathyroidism of renal origin, R80.9 - Proteinuria, unspecified Complete Blood Count Auto Diff 2 Weeks D63.1 - Anemia in chronic kidney disease, E11.22 - Type 2 diabetes mellitus with diabetic chronic kidney disease, E11.29 - Type 2 diabetes mellitus with other diabetic kidney complication, N17.9 - Acute kidney failure, unspecified, N18.4 - Chronic kidney disease, stage 4 (severe), N25.81 - Secondary hyperparathyroidism of renal origin, R80.9 - P roteinuria, unspecified Coding Level of Care Code Est Pt Level 4 (37048) Diagnoses MARTHA (acute kidney injury) N17.9 CKD stage 4 due to type 2 diabetes mellitus E11.22; N18.4 Proteinuria due to type 2 diabetes mellitus E11.29; R80.9 Anemia in stage 4 chronic kidney disease N18.4; D63.1 Chronic kidney disease stage: stage 4 (GFR 15-29) Secondary hyperparathyroidism (of renal origin) N25.81
[2024-08-18 15:38] VITALS: BP 122/70; PULSE 65; O2SAT 97; BMI 27.6
== END 2024-08-18 15:59 | disposition home or self-care (01) ==
PROVIDERS: PCP Internal Medicine; Visit Provider Nurse Practitioner Family
DX: N17.9 Acute kidney failure, unspecified (principal); E11.22 Type 2 diabetes mellitus with diabetic chronic kidney disease; N18.4 Chronic kidney disease, stage 4 (severe); E11.29 Type 2 diabetes mellitus with other diabetic kidney complication; R80.9 Proteinuria, unspecified; D63.1 Anemia in chronic kidney disease; N25.81 Secondary hyperparathyroidism of renal origin
CPT/HCPCS: 99214

== ENCOUNTER → 2024-08-18 15:29 | Outpatient (BNVA) | payer MEDICARE, SELFPAY | PROVIDERS: PCP Internal Medicine; Visit Provider Internal Medicine Nephrology | DX: E11.22 Type 2 diabetes mellitus with diabetic chronic kidney disease (principal); N18.4 Chronic kidney disease, stage 4 (severe); E11.29 Type 2 diabetes mellitus with other diabetic kidney complication; N17.9 Acute kidney failure, unspecified; D63.1 Anemia in chronic kidney disease; N25.81 Secondary hyperparathyroidism of renal origin; R80.9 Proteinuria, unspecified | CPT/HCPCS: 99212 ==

== ENCOUNTER 2024-09-04 11:54 | Outpatient (REF) | payer MEDICARE, SELFPAY ==
[2024-09-04 12:23] LABS: MANUAL DIFF FLAG NO
--- OUTSIDE RECORDS SUMMARY | 2024-09-04 12:46 | XMS_ITS | Clinical Summary ---
Author Organization [facility] Address [address] [place] [address] Phone Care Team Providers Care Avid Editor Name Role Phone Olga Mitchell MD Primary Care Provider [phone] Allergies No known active allergies Medications aspirin [...] 07/10/2024 Telephone [facility] [address] [phone] Jason Griffin MD from Last 3 Months [...] Visual Foot Exam 03/31/2020 Influenza Vaccine (#1) 2024 Hepatitis B Vaccine Aged Out No [...] mg/dl RTAMA 05/02/2018 us Rtama Conversion LAB [id number] LICITED RESULTS Final Result RTAMA from Last 3 Months or Most Recently Relevant to Health Maintenance Insurance [facility] Medicare Care Teams Avid Editor Relationship Specialty Start Date End Date Olga Mitchell MD [facility] INTERNAL [place] [address] [place], [place] PCP - General 03/11/20
--- OUTSIDE RECORDS SUMMARY | 2024-09-04 12:46 | XMS_ITS | Referral Summary ---
Author Organization [facility] Address [address] [place] [address] Care Team Providers Care Check Viewer Name Role Phone Edilia Keenan Primary Care Provider [phone] Allergies No known active allergies Medications metoprolol [...] 84 03/11/2022 11:30 AM EST Temperature 36.1 C (97 F) 03/11/2022 10:38 AM EST Respiratory Rate 13 03/11/2022 11:30 AM EST Oxygen Saturation 98% 03/11/2022 11:30 AM EST Inhaled Oxygen Concentration - - Weight 82.1 kg (181 lb) 03/11/2022 7:36 AM EST Height 165.1 cm (5' 5 ) 03/04/2022 2:07 PM EST Body Mass Index 30.12 03/04/2022 2:07 PM EST Plan of Treatment Not on file Medical Devices Implanted Type Area Criminal Legal Assistant Device Identifier Shelf Expiration Date Model / Serial / Lot Graft Patch Pericardium 1.5cmx1.5cm Tutoplast - [id number] - [id number] Implanted:Qty: 1 on 03/11/2022 by Zuleima Corral MD at [facility] Graft Left: Eye [employer] 05/29/2026 [id number] / [id number] / Valve Glaucoma Fp7 Silicone Sterile [id number] - [id number] Implanted:Qty: 1 on 03/11/2022 by Zuleima Corral MD at [facility] Implant Left: Eye [employer] 12/01/2023 FP7 / / [id number] Insurance [employer] Advance Directives * Full Code (Latest Code Status on File) Date Activated Date Inactivated Comments 03/11/2022 7:50 AM 03/11/2022 2:28 PM Care Teams Check Viewer Relationship Specialty Start Date End Date Edilia Keenan [address] [place] [id number] PCP - General Internal Medicine 03/11/22
[2024-09-04 13:45] LABS: Hematocrit 26.1 % (42.0-52.0); Hemoglobin 8.3 g/dl (14.0-18.0); Imm Gran Abs Auto 0.01 X10*3/uL (0.00-0.03); Imm Gran Pct Auto 0.2 % (0.0-0.4); Lymphocytes Absolute Auto 1.2 X10*3/uL (1.2-4.9); Mean Corpuscular HGB Conc 31.8 g/dl (31.0-36.0); Mean Corpuscular Hemoglobin 29.3 pg (27.0-33.0); Mean Corpuscular Volume 92.2 fL (80.0-98.0); NRBC Abs Auto 0.000 X10*3/uL (0.0-0.012); NRBC Pct Auto 0.0 /100WBC (0.0-0.2); Platelet Count 316 X10*3/uL (160-400); Red Blood Count 2.83 X10*6/uL (4.60-5.80); White Blood Count 4.2 X10*3/uL (4.8-10.8)
[2024-09-04 14:00] LABS: Parathyroid Hormone Intact 528.8 pg/mL (8.7-77.1)
[2024-09-04 14:24] LABS: Appearance Urine Clear; Glucose Urine UA Negative (Negative); PH 7.0 (5.0-9.0); Specific Gravity - Urine 1.010 (1.005-1.025); UMIC TRIGGER UA YES
[2024-09-04 14:40] LABS: Protein/Creatinine Ratio, Ur 2.22 (<0.2); Total Protein Urine Random 147 mg/dL (<12)
[2024-09-04 15:18] LABS: Anion Gap 15 (12-20); Blood Urea Nitrogen 85 mg/dL (9-16); Calcium 8.9 mg/dL (8.4-10.2); Carbon Dioxide 24 mmol/L (22-29); Chloride 106 mmol/L (96-108); Estimated Glomerular Filt Rate 7; Potassium 4.8 mmol/L (3.3-5.1); Sodium 140 mmol/L (135-145)
== END 2024-09-04 11:55 | disposition home or self-care (01) ==
LOC: HO.LAB 11:54
PROVIDERS: Nurse Practitioner Family; PCP Internal Medicine; Visit Provider Internal Medicine Nephrology
DX: E11.22 Type 2 diabetes mellitus with diabetic chronic kidney disease (principal); E11.29 Type 2 diabetes mellitus with other diabetic kidney complication; R80.9 Proteinuria, unspecified; N17.9 Acute kidney failure, unspecified; N25.81 Secondary hyperparathyroidism of renal origin; N18.4 Chronic kidney disease, stage 4 (severe); D63.1 Anemia in chronic kidney disease
CPT/HCPCS: 36415; 80048; 81001; 82570; 83970; 84100; 84156; 85025

== ENCOUNTER 2024-09-06 15:22 | Outpatient (AMB) | payer MEDICARE, SELFPAY ==
--- NOTE | 2024-09-06 15:30 | HO.NEPHOV_ITS ---
Vital Signs 09/06/24 15:31 Height 5 ft 6 in Weight 169 lb BMI 27.3 BP 122/72 Blood Pressure Location Rt brachial Position Sitting Pulse 66 Pulse Source Pulse Oximeter Pulse Oximetry (%) 98 Oxygen Delivery Method Room Air Intake Visit Reasons: 3wk [id number] Client Onboarding Analyst Required: Yes Client Onboarding Analyst Name: Gianluca Patrick Accompanied by: Self / Same As Patient Allergies lisinopril Adverse Reaction (Intermediate, Verified 09/06/24 15:33) cough HPI Comments Details: I had the pleasure of seeing Hang for proteinuric CKD with hypertension. He is a 63 year old male presenting with diabetes, hypertension as well as ischemic cardiomyopathy along with chronic kidney disease stage 4 and proteinuria. His proteinuria has significantly worsened, with current levels noted to exceed 2000 mg. He does not have any epistaxis, photosensitivity, skin rashes, joint swellings, hematemesis, melena, nausea, vomiting, diarrhea, orthostatic symptoms, chest pain, shortness of breath, paroxysmal nocturnal dyspnea, orthopnea, excessive intake of nonsteroidal anti-inflammatories, new bone or back pain. His recent serum creatinine had been over 7.0 after he developed ATN. His UO is good and he has no uremic symptoms. [facility] Medical History Pneumonia due to COVID-19 virus Pre-op examination Positive for macroalbuminuria Ischemic cardiomyopathy STEMI (ST elevation myocardial infarction) Type 2 diabetes mellitus with other diabetic kidney complication Proteinuria Hyperlipidemia LDL goal <70 Essential hypertension Surgical History History of open heart surgery Hx of CABG Family History Father CVD (cardiovascular disease) HTN (hypertension) Diabetes Mother CVD (cardiovascular disease) Diabetes Brother Diabetes HTN (hypertension) CVD (cardiovascular disease) Social History Household Members: None Housing: Apartment Alcohol intake: current Alcohol intake frequency: holidays/special occasions only Alcohol type: wine Patient Tobacco Use Status: Former Tobacco user Tobacco use type: Cigarette e-Cigarette/Vaping Use: Never Used Second Hand Smoke Exposure: No service: No Current occupational status: unemployed Cognitive needs: No Hearing needs: No Vision needs: Yes Review of Systems Const All systems reviewed & are unremarkable except as noted in HPI and below Physical Exam Vital Signs: Last Vital Signs Pulse 66 09/06/24 15:31 BP 122/72 09/06/24 15:31 Pulse Ox 98 09/06/24 15:31 Oxygen Delivery Method Room Air 09/06/24 15:31 BMI result Body Mass Index 27.3 Const General: comfortable and no acute distress Orientation/consciousness: patient oriented x3 HEENT Head: Yes normocephalic Mouth: Normal oral and palatal mucosa present Eyes EOM: EOMs intact bilaterally Neck Neck: Yes supple Resp Auscultation: clear to auscultation bilaterally Cardio Jugular venous distension: no JVD Rate: regular rate GI Palpation (GI): Soft to palpation Auscultation: normal bowel sounds General: Yes no CVA tenderness Back/Spine/Pelvis Back: no CVA tenderness Skin General skin exam: no rashes or lesions noted Neuro General: patient oriented x3 and moves all extremities Extrem General: Yes no pedal edema Results Reviewed Nephrology Results: Hgb, (14.0-18.0) 8.3 g/dl L 09/04/24 WBC, (4.8-10.8) 4.2 X10*3/uL L 09/04/24 Plt Count, (160-400) 316 X10*3/uL 09/04/24 Sodium, (135-145) 140 mmol/L 09/04/24 Potassium, (3.3-5.1) 4.8 mmol/L 09/04/24 Chloride, (96-108) 106 mmol/L 09/04/24 Carbon Dioxide, (22-29) 24 mmol/L 09/04/24 BUN, (9-16) 85 mg/dL H 09/04/24 Creatinine, (0.5-1.4) 7.96 mg/dL H* 09/04/24 Calcium, (8.4-10.2) 8.9 mg/dL Δ 09/04/24 Phosphorus, (2.7-4.5) 5.8 mg/dL H 09/04/24 PTH Intact, (8.7-77.1) 528.8 pg/mL H 09/04/24 Urine Protein, (Neg-Trace) 300 (3+) mg/dL H 09/04/24 Urine Creatinine 66.19 mg/dL 09/04/24 Protein/Creatinin Ratio, (<0.2) 2.22 H 09/04/24 Renal US 12/26/19 Assessment & Plan Assessment & Plan (1) Acute kidney injury superimposed on CKD: Code(s): N17.9 - Acute kidney failure, unspecified; N18.9 - Chronic kidney disease, unspecified Category: Medical (2) Secondary hyperparathyroidism (of renal origin): Code(s): N25.81 - Secondary hyperparathyroidism of renal origin Category: Medical (3) Proteinuria due to type 2 diabetes mellitus: Code(s): E11.29 - Type 2 diabetes mellitus with other diabetic kidney complication; R80.9 - Proteinuria, unspecified Category: Medical Plan Hang has 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 He recently had MARTHA on CKD likely due to ATN. He also likely has renovascular disease especially given background of coronary artery disease as well as ischemic cardiomyopathy. He should maintain good hydration and avoid nonsteroidal anti-inflammatories. He has good UO without any uremic symptoms. There is no need for any renal replacement therpay now. I have ordered a renal biopsy. I plan to arrange Procrit at the next oofice visit. Further management is pending evolving data. Answered all questions and follow-up appointment was given. Orders: Orders CT biopsy renal LT Today N17.9 - Acute kidney failure, unspecified Complete Blood Count Auto Diff 3 Weeks N17.9 - Acute kidney failure, unspecified Blood Urea Nitrogen 3 Weeks N17.9 - Acute kidney failure, unspecified IRON PROFILE 3 Weeks N17.9 - Acute kidney failure, unspecified Ferritin 3 Weeks N17.9 - Acute kidney failure, unspecified Electrolytes 3 Weeks N17.9 - Acute kidney failure, unspecified Creatinine 3 Weeks N17.9 - Acute kidney failure, unspecified Coding Level of Care Code Est Pt Level 4 (22386) Diagnoses Acute kidney injury superimposed on CKD N17.9; N18.9 Secondary hyperparathyroidism (of renal origin) N25.81 Proteinuria due to type 2 diabetes mellitus E11.29; R80.9
[2024-09-06 15:31] VITALS: BP 122/72; PULSE 66; O2SAT 98; BMI 27.3
--- OUTSIDE RECORDS SUMMARY | 2024-09-06 15:32 | XMS_ITS | Referral Summary ---
Author Organization [facility] Address [address] [place] [address] Care Team Providers Care Locksmith Name Role Phone Edilia Keenan Primary Care Provider [phone] Allergies No known active allergies Medications metoprolol [...] on file Medical Devices Implanted Type Area Canine Service Instructor Trainer Device Identifier Shelf Expiration Date Model / Serial / Lot Graft Patch Pericardium 1.5cmx1.5cm Tutoplast - [id number] - [id number] Implanted:Qty: 1 on 03/11/2022 by Zuleima Corral MD at [facility] Graft Left: Eye [employer] 05/29/2026 [id number] / [id number] / Valve Glaucoma Fp7 Silicone Sterile [id number] Ahmed - [id number] Implanted:Qty: 1 on 03/11/2022 by Zuleima Corral MD at [facility] Implant Left: Eye [employer] 12/01/2023 FP7 / / [id number] Insurance [employer] Advance Directives * Full Code (Latest Code Status on File) Date Activated Date Inactivated Comments 03/11/2022 7:50 AM 03/11/2022 2:28 PM Care Teams Locksmith Relationship Specialty Start Date End Date Edilia Keenan [address] [place] [address] PCP - General Internal Medicine 03/11/22
--- OUTSIDE RECORDS SUMMARY | 2024-09-06 15:32 | XMS_ITS | Clinical Summary ---
Author Organization [facility] Address [address] [place] [address] Phone Care Team Providers Care Options Advisor Name Role Phone Olga Mitchell MD Primary Care Provider [phone] Allergies No known active allergies Medications aspirin [...] 07/10/2024 Telephone [facility] [address] [phone] Jason Griffin MD from Last 3 Months [...] mg/dl RTAMA 05/02/2018 us Rtama Conversion LAB [id number] LICITED RESULTS Final Result RTAMA from Last 3 Months or Most Recently Relevant to Health Maintenance Insurance [facility] Medicare Care Teams Options Advisor Relationship Specialty Start Date End Date Olga Mitchell MD [facility]NAL [place] [address] [place], [place] PCP - General 03/11/20
== END 2024-09-06 16:21 | disposition home or self-care (01) ==
LOC: HO.HKA 15:23
PROVIDERS: PCP Internal Medicine; Visit Provider Internal Medicine Nephrology
DX: N17.9 Acute kidney failure, unspecified (principal); N18.9 Chronic kidney disease, unspecified; N25.81 Secondary hyperparathyroidism of renal origin; E11.29 Type 2 diabetes mellitus with other diabetic kidney complication; R80.9 Proteinuria, unspecified
CPT/HCPCS: 99214

== ENCOUNTER → 2024-09-06 15:22 | Outpatient (BNVA) | payer MEDICARE, SELFPAY | PROVIDERS: PCP Internal Medicine; Visit Provider Internal Medicine Nephrology | DX: E11.22 Type 2 diabetes mellitus with diabetic chronic kidney disease (principal); N18.4 Chronic kidney disease, stage 4 (severe); N17.9 Acute kidney failure, unspecified; N25.81 Secondary hyperparathyroidism of renal origin; E11.29 Type 2 diabetes mellitus with other diabetic kidney complication; Z79.899 Other long term (current) drug therapy | CPT/HCPCS: 99212 ==

== ENCOUNTER 2024-09-27 08:32 | Outpatient (REF) | payer MEDICARE, SELFPAY ==
[2024-09-27 08:47] LABS: MANUAL DIFF FLAG NO
--- OUTSIDE RECORDS SUMMARY | 2024-09-27 08:48 | XMS_ITS | Referral Summary ---
Author Organization [facility] Address [address] [place] [address] Care Team Providers Care Medical Records Library Professor Name Role Phone Edilia Keenan Primary Care Provider [phone] Allergies No known active allergies Medications metoprolol [...] on file Medical Devices Implanted Type Area Mud Jack Nozzle Worker Device Identifier Shelf Expiration Date Model / Serial / Lot Graft Patch Pericardium 1.5cmx1.5cm Tutoplast - [id number] - [id number] Implanted:Qty: 1 on 03/11/2022 by Zuleima Corral MD at [facility] Graft Left: Eye [employer] 05/29/2026 [id number] / [id number] / Valve Glaucoma Fp7 Silicone Sterile [id number] Ahmed - [id number] Implanted:Qty: 1 on 03/11/2022 by Zuleima Corral MD at [facility] Implant Left: Eye [employer] 12/01/2023 FP7 / / [id number] Insurance [employer] Advance Directives * Full Code (Latest Code Status on File) Date Activated Date Inactivated Comments 03/11/2022 7:50 AM 03/11/2022 2:28 PM Care Teams Medical Records Library Professor Relationship Specialty Start Date End Date Edilia Keenan [address] [facility] [place] [address] PCP - General Internal Medicine 03/11/22
--- OUTSIDE RECORDS SUMMARY | 2024-09-27 08:48 | XMS_ITS | Clinical Summary ---
Author Organization [facility] Address [address] [place] [address] Phone Care Team Providers Care Community Planning Technician Name Role Phone Olga Mitchell MD Primary Care Provider [phone] Allergies No known active allergies Medications aspirin [...] 07/10/2024 Telephone [facility] [address] [phone] Jason Griffin MD from Last 3 Months [...] mg/dl RTAMA 05/02/2018 us Rtama Conversion LAB [id number] LICITED RESULTS Final Result RTAMA from Last 3 Months or Most Recently Relevant to Health Maintenance Insurance [facility] Medicare Care Teams Community Planning Technician Relationship Specialty Start Date End Date Olga Mitchell MD [facility]NAL [place] [address] [place], [place] PCP - General 03/11/20
[2024-09-27 09:19] LABS: Hematocrit 24.0 % (42.0-52.0); Hemoglobin 7.8 g/dl (14.0-18.0); Imm Gran Abs Auto 0.02 X10*3/uL (0.00-0.03); Imm Gran Pct Auto 0.4 % (0.0-0.4); Lymphocytes Absolute Auto 1.5 X10*3/uL (1.2-4.9); Mean Corpuscular HGB Conc 32.5 g/dl (31.0-36.0); Mean Corpuscular Hemoglobin 30.2 pg (27.0-33.0); Mean Corpuscular Volume 93.0 fL (80.0-98.0); NRBC Abs Auto 0.000 X10*3/uL (0.0-0.012); NRBC Pct Auto 0.0 /100WBC (0.0-0.2); Platelet Count 343 X10*3/uL (160-400); Red Blood Count 2.58 X10*6/uL (4.60-5.80); White Blood Count 4.9 X10*3/uL (4.8-10.8)
[2024-09-27 10:00] LABS: Ferritin 268 ng/mL (20-250)
[2024-09-27 10:02] LABS: Anion Gap 17 (12-20); Blood Urea Nitrogen 108 mg/dL (9-16); Carbon Dioxide 20 mmol/L (22-29); Chloride 108 mmol/L (96-108); Estimated Glomerular Filt Rate 6; Iron 116 mcg/dL (45-160); Percent Iron Saturation 33 % (15-50); Potassium 5.4 mmol/L (3.3-5.1); Sodium 140 mmol/L (135-145); Total Iron Binding Capacity 353 mcg/dL (228-428); Unsaturated Iron Binding 237 ug/dL
== END 2024-09-27 08:33 | disposition home or self-care (01) ==
LOC: HO.LAB 08:32
PROVIDERS: PCP Internal Medicine; Visit Provider Internal Medicine Nephrology
DX: N17.9 Acute kidney failure, unspecified (principal)
CPT/HCPCS: 36415; 80051; 82565; 82728; 83540; 84520; 85025

== ENCOUNTER 2024-09-29 09:59 | Outpatient (AMB) | payer MEDICARE, SELFPAY ==
--- OUTSIDE RECORDS SUMMARY | 2024-09-29 10:10 | XMS_ITS | Clinical Summary ---
Author Organization [facility] Address [address] [place] [address] Phone Care Team Providers Care Wheel Fitter Name Role Phone Olga Mitchell MD Primary Care Provider [phone] Allergies No known active allergies Medications aspirin [...] 07/10/2024 Telephone [facility] [address] [phone] Jason Griffin MD from Last 3 Months [...] mg/dl RTAMA 05/02/2018 us Rtama Conversion LAB [id number] LICITED RESULTS Final Result RTAMA from Last 3 Months or Most Recently Relevant to Health Maintenance Insurance [facility] Medicare Care Teams Wheel Fitter Relationship Specialty Start Date End Date Olga Mitchell MD [facility] INTERNAL [place] [address] [place], [place] PCP - General 03/11/20
--- OUTSIDE RECORDS SUMMARY | 2024-09-29 10:10 | XMS_ITS | Referral Summary ---
Author Organization [facility] Address [address] [place] [address] Care Team Providers Care Melter Caster Name Role Phone Edilia Keenan Primary Care Provider [phone] Allergies No known active allergies Medications metoprolol [...] on file Medical Devices Implanted Type Area Concrete Batching Plant Operator Device Identifier Shelf Expiration Date Model / Serial / Lot Graft Patch Pericardium 1.5cmx1.5cm Tutoplast - [id number] - [id number] Implanted:Qty: 1 on 03/11/2022 by Zuleima Corral MD at [facility] Graft Left: Eye [employer] 05/29/2026 [id number] / [id number] / Valve Glaucoma Fp7 Silicone Sterile [id number] Ahmed - [id number] Implanted:Qty: 1 on 03/11/2022 by Zuleima Corral MD at [facility] Implant Left: Eye [employer] 12/01/2023 FP7 / / [id number] Insurance [employer] Advance Directives * Full Code (Latest Code Status on File) Date Activated Date Inactivated Comments 03/11/2022 7:50 AM 03/11/2022 2:28 PM Care Teams Melter Caster Relationship Specialty Start Date End Date Edilia Keenan [address] [facility] [place] [address] PCP - General Internal Medicine 03/11/22
--- NOTE | 2024-09-29 10:14 | HO.NEPHOV_ITS ---
Vital Signs 09/29/24 10:16 Height 5 ft 6 in Weight 174 lb 2 oz BMI 28.1 BP 134/80 Blood Pressure Location Lt brachial Position Sitting Pulse 65 Pulse Source Pulse Oximeter Pulse Oximetry (%) 97 Oxygen Delivery Method Room Air Intake Visit Reasons: 4wk follow-up w/labs Conf Back Roll Lathe Operator Required: Yes Back Roll Lathe Operator Language: Business Intelligence Etl Developer Services: Back Roll Lathe Operator Present Back Roll Lathe Operator Name: Timi [id number] Information Interpreted: clinical only Accompanied by: Self / Same As Patient Allergies lisinopril Adverse Reaction (Intermediate, Verified 09/29/24 10:16) cough HPI Comments Details: I had the pleasure of seeing Hang for proteinuric CKD with hypertension. He is a 63 year old male presenting with diabetes, hypertension as well as ischemic cardiomyopathy along with chronic kidney disease stage 4 and proteinuria. His proteinuria has significantly worsened. He does not have any epistaxis, photosensitivity, skin rashes, joint swellings, hematemesis, melena, nausea, vomiting, diarrhea, orthostatic symptoms, chest pain, shortness of breath, paroxysmal nocturnal dyspnea, orthopnea, excessive intake of nonsteroidal anti- inflammatories, new bone or back pain. His recent serum creatinine had been over 7.0 . His UO is good and he has no uremic symptoms. [facility] Medical History Pneumonia due to COVID-19 virus Pre-op examination Positive for macroalbuminuria Ischemic cardiomyopathy STEMI (ST elevation myocardial infarction) Type 2 diabetes mellitus with other diabetic kidney complication Proteinuria Hyperlipidemia LDL goal <70 Essential hypertension Surgical History History of open heart surgery Hx of CABG Family History Father CVD (cardiovascular disease) HTN (hypertension) Diabetes Mother CVD (cardiovascular disease) Diabetes Brother Diabetes HTN (hypertension) CVD (cardiovascular disease) Social History Household Members: None Housing: Apartment Alcohol intake: current Alcohol intake frequency: holidays/special occasions only Alcohol type: wine Patient Tobacco Use Status: Former Tobacco user Tobacco use type: Cigarette e-Cigarette/Vaping Use: Never Used Second Hand Smoke Exposure: No service: No Current occupational status: unemployed Cognitive needs: No Hearing needs: No Vision needs: Yes Review of Systems Const All systems reviewed & are unremarkable except as noted in HPI and below Physical Exam Vital Signs: Last Vital Signs Pulse 65 09/29/24 10:16 BP 134/80 09/29/24 10:16 Pulse Ox 97 09/29/24 10:16 Oxygen Delivery Method Room Air 09/29/24 10:16 BMI result Body Mass Index 28.1 Const General: comfortable and no acute distress Orientation/consciousness: patient oriented x3 HEENT Head: Yes normocephalic Mouth: Normal oral and palatal mucosa present Eyes EOM: EOMs intact bilaterally Neck Neck: Yes supple Resp Auscultation: clear to auscultation bilaterally Cardio Jugular venous distension: no JVD Rate: regular rate GI Palpation (GI): Soft to palpation Auscultation: normal bowel sounds General: Yes no CVA tenderness Back/Spine/Pelvis Back: no CVA tenderness Skin General skin exam: no rashes or lesions noted Neuro General: patient oriented x3 and moves all extremities Extrem General: Yes no pedal edema Office Meds epoetin arpita-epbx 10,000 unit/mL injection solution Performing Provider: Angel Nobles MD Performing Location: [facility] Administered by: Angel Nobles MD on 09/29/24 10:39 Dose Route Admin Location Dispensed Lot Number Expiration Date [facility] Senior Software Test Engineer 20,000 unit subcut LUE 2 mL [id number] 04/01/26 7688-6073-80 PFIZ ER US PHARM Total Dispensed Waste 2 mL 0 % Results Reviewed Nephrology Results: Hgb, (14.0-18.0) 7.8 g/dl L 09/27/24 WBC, (4.8-10.8) 4.9 X10*3/uL 09/27/24 Plt Count, (160-400) 343 X10*3/uL 09/27/24 Sodium, (135-145) 140 mmol/L 09/27/24 Potassium, (3.3-5.1) 5.4 mmol/L H 09/27/24 Chloride, (96-108) 108 mmol/L 09/27/24 Carbon Dioxide, (22-29) 20 mmol/L L 09/27/24 BUN, (9-16) 108 mg/dL H 09/27/24 Creatinine, (0.5-1.4) 8.71 mg/dL H* 09/27/24 Calcium, (8.4-10.2) 8.9 mg/dL Δ 09/04/24 Phosphorus, (2.7-4.5) 5.8 mg/dL H 09/04/24 PTH Intact, (8.7-77.1) 528.8 pg/mL H 09/04/24 Urine Protein, (Neg-Trace) 300 (3+) mg/dL H 09/04/24 Urine Creatinine 66.19 mg/dL 09/04/24 Protein/Creatinin Ratio, (<0.2) 2.22 H 09/04/24 Renal US 12/26/19 Assessment & Plan Assessment & Plan (1) CKD (chronic kidney disease) stage 5, GFR less than 15 ml/min: Code(s): N18.5 - Chronic kidney disease, stage 5 Category: Medical (2) Proteinuria due to type 2 diabetes mellitus: Code(s): E11.29 - Type 2 diabetes mellitus with other diabetic kidney complication; R80.9 - Proteinuria, unspecified Category: Medical (3) Secondary hyperparathyroidism (of renal origin): Code(s): N25.81 - Secondary hyperparathyroidism of renal origin Category: Medical (4) Essential hypertension: Code(s): I10 - Essential (primary) hypertension Category: Medical (5) Hyperkalemia: Code(s): E87.5 - Hyperkalemia Category: Medical (6) Anemia in chronic kidney disease: Code(s): N18.9 - Chronic kidney disease, unspecified; D63.1 - Anemia in chronic kidney disease Category: Medical Qualifiers: Chronic kidney disease stage: stage 4 (GFR 15-29) Qualified Code(s): N18.4 - Chronic kidney disease, stage 4 (severe); D63.1 - Anemia in chronic kidney disease (7) Acute kidney injury superimposed on CKD: Code(s): N17.9 - Acute kidney failure, unspecified; N18.9 - Chronic kidney disease, unspecified Category: Medical Plan Hang has 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 He recently had MARTHA on CKD likely due to ATN vs progression of renal disease. He also likely has renovascular disease especially given background of coronary artery disease as well as ischemic cardiomyopathy. He should maintain good hy dration and avoid nonsteroidal anti-inflammatories. He has good UO without any uremic symptoms. There is no need for any renal replacement therpay now. He may have to come off Jardiance. I have ordered a renal biopsy. I administered Procrit 82486 Units during this visit. I have referred him for transplant evaluation as well as an AVF. Further management is pending evolving data. Answered all questions and follow-up appointment was given. Orders: Orders Complete Blood Count Auto Diff 3 Weeks N18.5 - Chronic kidney disease, stage 5 Electrolytes 3 Weeks N18.5 - Chronic kidney disease, stage 5 Blood Urea Nitrogen 3 Weeks N18.5 - Chronic kidney disease, stage 5 AMB Epoetin Injection Practice Supplied Today D63.1 - Anemia in chronic kidney disease, N18.4 - Chronic kidney disease, stage 4 (severe) CT biopsy renal LT Today N17.9 - Acute kidney failure, unspecified, N18.9 - Chronic kidney disease, unspecified Creatinine 3 Weeks N18.5 - Chronic kidney disease, stage 5 Referrals Transplant Surgery Referral N18.5 - Chronic kidney disease, stage 5 Vascular Surgery Referral N18.5 - Chronic kidney disease, stage 5 Medications: Changed From sodium polystyrene sulfonate 15 grams PO BID 30 grams 0RF E87.5 - Hyperkalemia To sodium polystyrene sulfonate 30 grams orally take three times a week; 453.6 grams 3RF E87.5 - Hyperkalemia Coding Level of Care Code Est Pt Level 4 (98708) Diagnoses CKD (chronic kidney disease) stage 5, GFR less than 15 ml/min N18.5 Proteinuria due to type 2 diabetes mellitus E11.29; R80.9 Secondary hyperparathyroidism (of renal origin) N25.81 Essential hypertension I10 Hyperkalemia E87.5 Anemia in stage 4 chronic kidney disease N18.4; D63.1 Chronic kidney disease stage: stage 4 (GFR 15-29) Acute kidney injury superimposed on CKD N17.9; N18.9
[2024-09-29 10:16] VITALS: BP 134/80; PULSE 65; O2SAT 97; BMI 28.1
== END 2024-09-29 10:43 | disposition home or self-care (01) ==
LOC: HO.HKA 10:00
PROVIDERS: PCP Internal Medicine; Visit Provider Internal Medicine Nephrology
DX: N18.5 Chronic kidney disease, stage 5 (principal); I12.9 Hypertensive chronic kidney disease with stage 1 through stage 4 chronic kidney disease, or unspecified chronic kidney disease; E11.29 Type 2 diabetes mellitus with other diabetic kidney complication; R80.9 Proteinuria, unspecified; N25.81 Secondary hyperparathyroidism of renal origin; E87.5 Hyperkalemia; N18.4 Chronic kidney disease, stage 4 (severe); D63.1 Anemia in chronic kidney disease; N17.9 Acute kidney failure, unspecified; N18.9 Chronic kidney disease, unspecified
CPT/HCPCS: 99214

== ENCOUNTER → 2024-09-29 09:59 | Outpatient (BNVA) | payer MEDICARE, SELFPAY | PROVIDERS: PCP Internal Medicine; Visit Provider Internal Medicine Nephrology | DX: E11.29 Type 2 diabetes mellitus with other diabetic kidney complication (principal); I12.9 Hypertensive chronic kidney disease with stage 1 through stage 4 chronic kidney disease, or unspecified chronic kidney disease; D63.1 Anemia in chronic kidney disease; N18.4 Chronic kidney disease, stage 4 (severe); N18.5 Chronic kidney disease, stage 5; E87.5 Hyperkalemia; N25.81 Secondary hyperparathyroidism of renal origin; N17.9 Acute kidney failure, unspecified; R80.9 Proteinuria, unspecified; I25.2 Old myocardial infarction; Z79.84 Long term (current) use of oral hypoglycemic drugs | CPT/HCPCS: 96372; 99212; Q5106 ==

== ENCOUNTER 2025-01-02 07:21 | Outpatient (REF) | payer MEDICARE, MEDICAID, SELFPAY ==
--- OUTSIDE RECORDS SUMMARY | 2025-01-02 07:24 | XMS_ITS | Clinical Summary ---
Author Organization [facility] Address [address] [place] [address] Care Team Providers Care Process Design Engineer Name Role Phone Edilia Keenan Primary Care Provider [phone] Allergies No known active allergies Medications metoprolol [...] 2010 Zoster Vaccines (1 of 2) 2010 Alcohol/Substance Use Screening 03/01/2024 COVID-19 Vaccine (1 - 2024-2 6 season) 2024 Influenza Vaccine (#1) 2024 RSV Vaccine (60+ years old a nd patients) (1 - 1-dose 75+ series) 12/11/2035 Hepatitis B Vaccines Aged Out No long er eligible based on patient's age to complete this topic Medical Devices Implanted Type Area Airline Operations Agent Device Identifier Shelf Expiration Date Model / Serial / Lot Graft Patch Pericardium 1.5cmx1.5cm Tutoplast - [id number] - [id number] Implanted:Qty: 1 on 03/11/2022 by Zuleima Corral MD at [facility] Graft Left: Eye [employer] 05/29/2026 [id number] / [id number] / Valve Glaucoma Fp7 Silicone Sterile [id number] [facility] - [id number] Implanted:Qty: 1 on 03/11/2022 by Zuleima Corral MD at [facility] Implant Left: Eye [employer] 12/01/2023 FP7 / / [id number] Insurance [facility] MEDICAID Advance Directives * Full Code (Latest Code Status on File) Date Activated Date Inactivated Comments 03/11/2022 7:50 AM 03/11/2022 2:28 PM Care Teams Process Design Engineer Relationship Specialty Start Date End Date Edilia Keenan [address] [place] [address] [place] [address] PCP - General Internal Medicine 03/11/22
--- OUTSIDE RECORDS SUMMARY | 2025-01-02 07:24 | XMS_ITS | Clinical Summary ---
Author Organization [facility] Address [address] [place] [address] Phone Care Team Providers Care Watcher Lookout Tower Name Role Phone Olga Mitchell MD Primary Care Provider [phone] Allergies No known active allergies Medications aspirin [...] mg/dl RTAMA 05/02/2018 us Rtama Conversion LAB [id number] LICITED RESULTS Final Result RTAMA from Last 3 Months or Most Recently Relevant to Health Maintenance Insurance [facility] Medicare Care Teams Watcher Lookout Tower Relationship Specialty Start Date End Date Olga Mitchell MD [facility] INTERNAL [address] [place], [place] PCP - General 03/11/20
[2025-01-02 07:55] LABS: MANUAL DIFF FLAG NO
[2025-01-02 08:26] LABS: Hematocrit 40.9 % (42.0-52.0); Hemoglobin 12.8 g/dl (14.0-18.0); Imm Gran Abs Auto 0.01 X10*3/uL (0.00-0.03); Imm Gran Pct Auto 0.2 % (0.0-0.4); Lymphocytes Absolute Auto 1.0 X10*3/uL (1.2-4.9); Mean Corpuscular HGB Conc 31.3 g/dl (31.0-36.0); Mean Corpuscular Hemoglobin 28.3 pg (27.0-33.0); Mean Corpuscular Volume 90.5 fL (80.0-98.0); NRBC Abs Auto 0.000 X10*3/uL (0.0-0.012); NRBC Pct Auto 0.0 /100WBC (0.0-0.2); Platelet Count 265 X10*3/uL (160-400); Red Blood Count 4.52 X10*6/uL (4.60-5.80); White Blood Count 5.4 X10*3/uL (4.8-10.8)
[2025-01-02 09:06] LABS: Anion Gap 17 (12-20); Blood Urea Nitrogen 91 mg/dL (9-16); Carbon Dioxide 22 mmol/L (22-29); Chloride 107 mmol/L (96-108); Estimated Glomerular Filt Rate 9; Potassium 5.0 mmol/L (3.3-5.1); Sodium 141 mmol/L (135-145)
== END 2025-01-02 07:22 | disposition home or self-care (01) ==
LOC: HO.LAB 07:21
PROVIDERS: PCP Internal Medicine; Visit Provider Internal Medicine Nephrology
DX: N18.5 Chronic kidney disease, stage 5 (principal)
CPT/HCPCS: 36415; 80051; 82565; 84520; 85025

== ENCOUNTER 2025-01-10 09:47 | Outpatient (AMB) | payer MEDICARE, MEDICAID, SELFPAY ==
--- NOTE | 2025-01-10 09:55 | HO.NEPHOV ---
Vital Signs 01/10/25 09:57 Height 5 ft 6 in Weight 178 lb BMI 28.7 BP 110/70 Blood Pressure Location Rt brachial Position Sitting Pulse 66 Pulse Source Pulse Oximeter Pulse Oximetry (%) 94 Oxygen Delivery Method Room Air Intake Visit Reasons: Lab Results-Conf Reinsurance Analyst Required: Yes Reinsurance Analyst Language: Social Service Manager Services: Reinsurance Analyst Present Reinsurance Analyst Name: Santiago [id number] Information Interpreted: clinical only Accompanied by: Self / Same As Patient Allergies lisinopril Adverse Reaction (Intermediate, Verified 01/10/25 09:57) cough HPI Comments Details: I had the pleasure of seeing Hang for proteinuric CKD with hypertension. He is a 64 year old male presenting with diabetes, hypertension as well as ischemic cardiomyopathy along with chronic kidney disease stage 4 and proteinuria. His proteinuria has significantly worsened. He does not have any epistaxis, photosensitivity, skin rashes, joint swellings, hematemesis, melena, nausea, vomiting, diarrhea, orthostatic symptoms, chest pain, shortness of breath, paroxysmal nocturnal dyspnea, orthopnea, excessive intake of nonsteroidal anti-inflammatories, new bone or back pain. His recent serum creatinine had been over 6.55 . His UO is good and denies uremic symptoms. [facility] Medical History Pneumonia due to COVID-19 virus Pre-op examination Positive for macroalbuminuria Ischemic cardiomyopathy STEMI (ST elevation myocardial infarction) Type 2 diabetes mellitus with other diabetic kidney complication Proteinuria Hyperlipidemia LDL goal <70 Essential hypertension Surgical History History of open heart surgery Hx of CABG Family History Father CVD (cardiovascular disease) HTN (hypertension) Diabetes Mother CVD (cardiovascular disease) Diabetes Brother Diabetes HTN (hypertension) CVD (cardiovascular disease) Social History Household Members: None Housing: Apartment Alcohol intake: current Alcohol intake frequency: holidays/special occasions only Alcohol type: wine Patient Tobacco Use Status: Former Tobacco user Tobacco use type: Cigarette e-Cigarette/Vaping Use: Never Used Second Hand Smoke Exposure: No service: No Current occupational status: unemployed Cognitive needs: No Hearing needs: No Vision needs: Yes Review of Systems Const All systems reviewed & are unremarkable except as noted in HPI and below Physical Exam Vital Signs: Last Vital Signs Pulse 66 01/10/25 09:57 BP 110/70 01/10/25 09:57 Pulse Ox 94 01/10/25 09:57 Oxygen Delivery Method Room Air 01/10/25 09:57 BMI result Body Mass Index 28.7 Const General: comfortable and no acute distress Orientation/consciousness: patient oriented x3 HEENT Head: Yes normocephalic Mouth: Normal oral and palatal mucosa present Eyes EOM: EOMs intact bilaterally Neck Neck: Yes supple Resp Auscultation: clear to auscultation bilaterally Cardio Jugular venous distension: no JVD Rate: regular rate GI Palpation (GI): Soft to palpation Auscultation: normal bowel sounds General: Yes no CVA tenderness Back/Spine/Pelvis Back: no CVA tenderness Skin General skin exam: no rashes or lesions noted Neuro General: patient oriented x3 and moves all extremities Extrem General: Yes no pedal edema Results Reviewed Nephrology Results: Hgb, (14.0-18.0) 12.8 g/dl L Δ 01/02/25 WBC, (4.8-10.8) 5.4 X10*3/uL 01/02/25 Plt Count, (160-400) 265 X10*3/uL 01/02/25 Sodium, (135-145) 141 mmol/L 01/02/25 Potassium, (3.3-5.1) 5.0 mmol/L 01/02/25 Chloride, (96-108) 107 mmol/L 01/02/25 Carbon Dioxide, (22-29) 22 mmol/L 01/02/25 BUN, (9-16) 91 mg/dL H 01/02/25 Creatinine, (0.5-1.4) 6.55 mg/dL H* 01/02/25 Calcium, (8.4-10.2) 8.9 mg/dL Δ 09/04/24 Phosphorus, (2.7-4.5) 5.8 mg/dL H 09/04/24 PTH Intact, (8.7-77.1) 528.8 pg/mL H 09/04/24 Urine Protein, (Neg-Trace) 300 (3+) mg/dL H 09/04/24 Urine Creatinine 66.19 mg/dL 09/04/24 Protein/Creatinin Ratio, (<0.2) 2.22 H 09/04/24 Renal US 12/26/19 Assessment & Plan Assessment & Plan (1) Type 2 diabetes mellitus with other diabetic kidney complication: Code(s): E11.29 - Type 2 diabetes mellitus with other diabetic kidney complication Category: Medical (2) Proteinuria due to type 2 diabetes mellitus: Code(s): E11.29 - Type 2 diabetes mellitus with other diabetic kidney complication; R80.9 - Proteinuria, unspecified Category: Medical (3) Secondary hyperparathyroidism (of renal origin): Code(s): N25.81 - Secondary hyperparathyroidism of renal origin Category: Medical (4) CKD (chronic kidney disease) stage 5, GFR less than 15 ml/min: Code(s): N18.5 - Chronic kidney disease, stage 5 Category: Medical (5) Essential hypertension: Code(s): I10 - Essential (primary) hypertension Category: Medical (6) Anemia in chronic kidney disease: Code(s): N18.9 - Chronic kidney disease, unspecified; D63.1 - Anemia in chronic kidney disease Category: Medical Qualifiers: Chronic kidney disease stage: stage 4 (GFR 15-29) Qualified Code(s): N18.4 - Chronic kidney disease, stage 4 (severe); D63.1 - Anemia in chronic kidney disease Plan Hang has 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 His GFR is less than 15 mls/mt. He also likely has renovascular disease especially given background of coronary artery disease as well as ischemic cardiomyopathy. He should maintain good hydration and avoid nonsteroidal anti-inflammatories. He has good UO without any uremic symptoms. There is no need for any renal replacement therpay now. I have referred him for transplant evaluation as well as an AVF. Further management is pending evolving data. Answered all questions and follow-up appointment was given. Orders: Orders Creatinine 6 Weeks N18.5 - Chronic kidney disease, stage 5 Electrolytes 6 Weeks N18.5 - Chronic kidney disease, stage 5 Calcium 6 Weeks N18.5 - Chronic kidney disease, stage 5 Blood Urea Nitrogen 6 Weeks N18.5 - Chronic kidney disease, stage 5 Medications: Discontinued empagliflozin (Jardiance) Discontinued Reason: Doctor's Order 10 mg PO DAILY 90 days 90 tabs 1RF Coding Level of Care Code Est Pt Level 4 (71501) Diagnoses Type 2 diabetes mellitus with other diabetic kidney complication E11.29 Proteinuria due to type 2 diabetes mellitus E11.29; R80.9 Secondary hyperparathyroidism (of renal origin) N25.81 CKD (chronic kidney disease) stage 5, GFR less than 15 ml/min N18.5 Essential hypertension I10 Anemia in stage 4 chronic kidney disease N18.4; D63.1 Chronic kidney disease stage: stage 4 (GFR 15-29)
[2025-01-10 09:57] VITALS: BP 110/70; PULSE 66; O2SAT 94; BMI 28.7
--- OUTSIDE RECORDS SUMMARY | 2025-01-10 11:14 | XMS_ITS | Clinical Summary ---
Author Organization [facility] Address [address] [place] [address] Care Team Providers Care Marine Painter Name Role Phone Edilia Keenan Primary Care Provider [phone] Allergies No known active allergies Medications metoprolol [...] this topic Medical Devices Implanted Type Area Solar Installation Foreman Device Identifier Shelf Expiration Date Model / Serial / Lot Graft Patch Pericardium 1.5cmx1.5cm Tutoplast - [id number] - [id number] Implanted:Qty: 1 on 03/11/2022 by Zuleima Corral MD at [facility] Graft Left: Eye [employer] 05/29/2026 [id number] / [id number] / Valve Glaucoma Fp7 Silicone Sterile [id number] [facility] - [id number] Implanted:Qty: 1 on 03/11/2022 by Zuleima Corral MD at [facility] Implant Left: Eye [employer] 12/01/2023 [id number] / / [id number] Insurance [facility] MEDICAID Advance Directives * Full Code (Latest Code Status on File) Date Activated Date Inactivated Comments 03/11/2022 7:50 AM 03/11/2022 2:28 PM Care Teams Marine Painter Relationship Specialty Start Date End Date Edilia Keenan [address] [place] [address] [place] [address] PCP - General Internal Medicine 03/11/22
--- OUTSIDE RECORDS SUMMARY | 2025-01-10 11:14 | XMS_ITS | Clinical Summary ---
Author Organization [facility] Address [address] [place] [place] [address] Phone Care Team Providers Care Ripsaw Operator Name Role Phone Olga Mitchell MD Primary Care Provider [phone] Allergies No known active allergies Medications aspirin [...] mg/dl RTAMA 05/02/2018 us [facility] Conversion [facility] [id number] LICITED RESULTS Final Result RTAMA from Last 3 Months or Most Recently Relevant to Health Maintenance Insurance [facility] Medicare Care Teams Ripsaw Operator Relationship Specialty Start Date End Date Olga Mitchell MD [facility] [address] [place], [place] PCP - General 03/11/20
== END 2025-01-10 10:20 | disposition home or self-care (01) ==
LOC: HO.HKA 09:48
PROVIDERS: PCP Internal Medicine; Visit Provider Internal Medicine Nephrology
DX: E11.29 Type 2 diabetes mellitus with other diabetic kidney complication (principal); R80.9 Proteinuria, unspecified; N25.81 Secondary hyperparathyroidism of renal origin; I12.9 Hypertensive chronic kidney disease with stage 1 through stage 4 chronic kidney disease, or unspecified chronic kidney disease; N18.5 Chronic kidney disease, stage 5; N18.4 Chronic kidney disease, stage 4 (severe); D63.1 Anemia in chronic kidney disease
CPT/HCPCS: 99214

== ENCOUNTER → 2025-01-10 09:47 | Outpatient (BNVA) | payer MEDICARE, MEDICAID, SELFPAY | PROVIDERS: PCP Internal Medicine; Visit Provider Internal Medicine Nephrology | DX: I12.0 Hypertensive chronic kidney disease with stage 5 chronic kidney disease or end stage renal disease (principal); E11.22 Type 2 diabetes mellitus with diabetic chronic kidney disease; E11.65 Type 2 diabetes mellitus with hyperglycemia; N18.5 Chronic kidney disease, stage 5; Z87.891 Personal history of nicotine dependence; Z79.84 Long term (current) use of oral hypoglycemic drugs; R80.9 Proteinuria, unspecified; D63.1 Anemia in chronic kidney disease | CPT/HCPCS: 99212 ==

== ENCOUNTER 2025-01-29 13:31 | Inpatient (IN) | payer MEDICARE, MEDICAID, SELFPAY ==
[2025-01-29] VITALS (8 sets, daily range): BP systolic 118–150; BP diastolic 75–81; PULSE 61–69; RESP 14–18; TEMP 36–36.4; O2SAT 91–98; BMI 28.7
--- NOTE | ~2025-01-29 | IR_ITS ---
CLINICAL HISTORY: End-stage renal disease. The patient presents to interventional radiology for placement of a tunneled central venous catheter for hemodialysis. PROCEDURES: 1. Real-time ultrasound-guided access into the right internal jugular vein after documentation of selected vessel patency, and permanent imaging storing in the patient record. 2. Placement of a 15 fr 23 cm tunneled, dual-lumen hemodialysis catheter. Clinician: Mike Tejada NP MEDICATIONS: -Lidocaine 1% 10 mL SQ. -Antibiotics: Ancef -For additional details, please see nursing flowsheet. COMPLICATIONS: None. ESTIMATED BLOOD LOSS: <5 ml SPECIMENS: None Radiation: 13.8 mGy PROCEDURE NOTE: The procedure, risks, benefits, and alternatives were carefully explained to patient, and written informed consent was obtained. The patient was placed supine on the fluoroscopy table. A timeout was performed. The right neck and chest was prepped and draped in usual sterile fashion. Local anesthesia was administered to the access site with lidocaine. Under ultrasound guidance, the right internal jugular vein was accessed with a 5 Fr micropuncture set. A 0.035 in wire was advanced to the IVC to maintain access during the tunneling process. Next, subcutaneous lidocaine was administered to the chest. Using blunt dissection, a subcutaneous tunnel was created that connects from the upper chest to the venotomy site. The dialysis catheter was pulled through the tunnel. The tract in the vein was dilated and a peel-away sheath was advanced over the wire. The catheter was advanced through the sheath, which was subsequently peeled away. The catheter was tested, flushed, and sutured to the skin with its tip in the high right atrium. A permanent fluoroscopic image of the chest was saved to PACS. The catheter ports were packed with heparin per routine protocol. In the mid neck, the existing sutures were cut and the temporary catheter was removed. Hemostasis was achieved with one suture. A sterile dressing was applied. The patient was stable after the procedure and was transferred to the floor. This procedure was done with a dedicated nurse and continuous monitoring of vital signs. FINDINGS: 1. Patent right internal jugular vein. 2. Placement of a tunneled, dual-lumen hemodialysis catheter as above. 3. Catheter flushes and aspirates very well with a 10 mL syringe. No pneumothorax. 4. Removal of temporary right neck catheter. IR/IR us guide venous access IMPRESSION: Placement of a tunneled hemodialysis catheter in the right internal jugular vein. PLAN: -The catheter may be used immediately. This procedure was performed by Mike Tejada NP, and directly supervised by Russ Kerr M.D.. Electronically signed by: Russ Kerr MD 02/01/2025 05:05 PM [facility]
--- NOTE | ~2025-01-29 | XR_ITS ---
EXAMINATION: XR CHEST CLINICAL INFORMATION: dyspnea, 3 days COMPARISON: January 30, [id number] TECHNIQUE: 2 views of the chest were obtained. FINDINGS: Again noted are mediastinal wires. The lowest wire is broken on the right side, unchanged. The cardiac size is enlarged. There are increased perihilar markings, right greater than left, with indistinct vessel margins. Lung volumes are low. XR/XR chest 2V IMPRESSION: Borderline cardiomegaly and suspected pulmonary edema. Electronically signed by: Don Ashby MD 01/29/2025 03:04 PM [facility]
--- NOTE | ~2025-01-29 | XR_ITS ---
CLINICAL HISTORY: dialysis line placement 1 view chest x-ray Comparison: CR/SR - XR CHEST 2 VIEWS - 01/29/25 14:52 EST Findings: Interval placement of right central venous catheter with tip in the SVC. Increased right basilar airspace opacity. Stable cardiomegaly. IMPRESSION: 1. Interval placement of right central venous catheter with tip in the SVC. 2. Increased right basilar airspace opacity, may represent edema or pneumonia. This document has been electronically signed by: Rosa Horne MD on 01/29/2025 18:55:17
--- NOTE | 2025-01-29 13:38 | ECG_ITS ---
Test Reason : DYSPNEA Blood Pressure : */* mmHG Vent. Rate : 62 BPM Atrial Rate : 62 BPM P-R Int : 230 ms QRS Dur : 88 ms QT Int : 424 ms P-R-T Axes : 12 5 86 degrees QTcB Int : 430 ms Sinus rhythm with 1st degree A-V block Inferior infarct (cited on or before 11-Feb-2022) Abnormal ECG When compared with ECG of 11-Feb-2022 08:12, AK interval has increased Referred By: America Oconnell Electronically Signed By: HEATHER NICHOLSON
--- NOTE | 2025-01-29 13:45 | ED.GENADULT ---
HPI - General Adult General Chief complaint: Upper Respiratory Symptoms Stated complaint: sob Time Seen by Provider: 01/29/25 15:36 Source: patient Mode of arrival: ambulatory Limitations: no limitations History of Present Illness ED Provider: Dr. Micky Marie HPI narrative: 64-year-old male presenting with diabetes, hypertension, ischemic cardiomyopathy, chronic kidney disease stage 5 with proteinuria who presents emergency department for evaluation of shortness of breath x3 days, pitting edema x2 months and chest pain. The patient states he is having severe dyspnea on exertion over the past 3 days, orthopnea and increased leg swelling. Review of systems was positive for chills, nonproductive cough, pleuritic chest pain, shortness of breath, dyspnea on exertion, nausea with no vomiting, no diarrhea, the patient is able to urinate without difficulty. Related Data Home Medications ?Medication ?Instructions ?Recorded ?Confirmed dorzolamide 22.3 mg-timolol 6.8 1 drp ophthalmic (eye) BID PRN 06/07/24 09/14/24 mg/mL eye drops calcitriol 0.25 mcg capsule 0.25 mcg PO DAILY 01/10/25 cholecalciferol (vitamin D3) 125 125 mcg PO DAILY 01/10/25 mcg (5,000 unit) capsule fish, borage, flaxseed oils-omega cap PO DAILY 01/10/25 3,6,9 comb no.1 1,200 mg capsule ([place] 3-6-9) furosemide 40 mg tablet (Lasix) 40 mg PO DAILY 01/10/25 lovastatin 40 mg tablet 40 mg PO DAILY 01/10/25 magnesium aspart,citrate,oxide mg PO DAILY 01/10/25 Previous Rx's ?Medication ?Instructions ?Recorded lancing device #1 ea 12/13/19 blood-glucose meter (FreeStyle #1 ea 02/21/20 Hope Lite kit) lancets 28 gauge (FreeStyle #100 ea 02/21/20 Lancets) hydrocortisone 1 % topical cream 1 appl topical TID PRN skin 11/24/22 (Anti-Itch (hydrocortisone)) irritation 2 weeks #28.4 grams latanoprost 0.005 % eye drops 1 drp ophthalmic (eye) BEDTIME 90 03/06/24 days #7.5 mL blood sugar diagnostic (FreeStyle #100 ea 09/04/24 Lite Strips) sodium polystyrene sulfonate 15 30 g PO .COMPLEX #453.6 grams 09/29/24 gram oral powder amlodipine 5 mg tablet 5 mg PO DAILY #90 tabs 10/04/24 brimonidine 0.2 % eye drops 1 drp ophthalmic (eye) ONCE 90 11/08/24 days #10 mL metoprolol succinate 100 mg 100 mg PO DAILY 90 days #90 tabs 12/30/24 tablet,extended release 24 hr Allergies Allergy/AdvReac Type Severity Reaction Status Date / Time lisinopril AdvReac Intermediate cough Verified 01/29/25 13:58 Review of Systems Review of Systems: Yes all other systems are reviewed and are negative [facility] Past Medical History [facility] Narrative: Social history: He denies tobacco use. He states he occasionally drinks alcohol. He denies drug use. Medical History Pneumonia due to COVID-19 virus Pre-op examination Positive for macroalbuminuria Ischemic cardiomyopathy STEMI (ST elevation myocardial infarction) Type 2 diabetes mellitus with other diabetic kidney complication Proteinuria Hyperlipidemia LDL goal <70 Essential hypertension Surgical History History of open heart surgery Hx of CABG Family History Family History Father CVD (cardiovascular disease) HTN (hypertension) Diabetes Mother CVD (cardiovascular disease) Diabetes Brother Diabetes HTN (hypertension) CVD (cardiovascular disease) Social History Social History Household Members: None Housing: Apartment Alcohol intake: current Alcohol intake frequency: holidays/special occasions only Alcohol type: wine Patient Tobacco Use Status: Former Tobacco user Tobacco use type: Cigarette Smoked in Last 30 Days: No e-Cigarette/Vaping Use: Never Used Second Hand Smoke Exposure: No Use of substances other than those prescribed or required for medical reasons: No Advance Directives: No Advance Directives Information Provided: Yes Do you have a plan to hurt others: No Plan service: No Current occupational status: unemployed Cognitive needs: No Hearing needs: No Vision needs: Yes Physical Exam ED Vital Signs: Vital Signs - 24 hr 01/29/25 13:56 01/29/25 15:40 01/29/25 15:40 Temperature 97.6 F 97.6 F Pulse Rate 61 61 Respiratory Rate 18 18 Blood Pressure 129/75 129/75 Pulse Oximetry 96 96 96 Oxygen Delivery Method Room Air Room Air Room Air 01/29/25 16:11 01/29/25 16:35 Temperature Pulse Rate 62 Respiratory Rate 16 Blood Pressure 141/77 H Pulse Oximetry Oxygen Delivery Method BMI result Body Mass Index 28.7 Vital signs were normal Exam: General: Awake, alert in no distress Head: Normocephalic, atraumatic EENT: PERRL, sclera and conjunctiva are normal, mouth with no erythema or exudates Neck: Supple, no adenopathy Lung: breath sounds symmetric, no wheezing, no rales and no rhonchi Chest: symmetric movement, nontender Heart: regular rate and rhythm, normal S1, S2 no murmurs or rubs Abdomen: soft, non-tender, nondistended, normal bowel sounds Back: no vertebral tenderness, no CVAT Extremities: 1+ pitting edema bilaterally symmetric Neuro: Awake, alert, oriented, normal speech, cranial nerves 2-12 intact, moves all extremities symmetrically Psych: Pleasant, cooperative Course Course Course Narrative: This is a rapid medical exam performed by Andrews Oconnell NP: Additional HPI, ROS, PE not included below will be deferred to primary provider. Patient is a 64y/o [place] speaking male with pmhx of T2DM, CKD, stage 5, secondary hyperparathyroidism, anemia, ischemic cardiomyopathy, atherosclerotic cardiovascular disease, HTN presenting to the emergency department from cardiology office where patient showed up today but has not been seen by them since 2021, so he was brought to the ED. Patient c/o dyspnea x 3 days. Pitting LE edema x 2 mos. States the back of his lungs hurt. Plan: EKG, labs, CXR, viral serology Medications Administered Discontinued Medications Generic Name Dose Route Start Last Admin Trade Name Freq PRN Reason Stop Dose Admin Albuterol Sulfate 7.5 mg/ 10 mg 01/29/25 15:41 01/29/25 16:11 Albuterol Sulfate 2.5 mg INHALE 01/29/25 15:42 10 mg ONCE ONE Administration Dextrose 25 gm 01/29/25 15:41 01/29/25 16:34 Dextrose 50 % 25 Gm/50 Ml Syringe IVPUSH 01/29/25 15:42 25 gm ONCE ONE Administration Furosemide 40 mg 01/29/25 15:54 01/29/25 16:35 Furosemide 40 Mg/4 Ml Vial IVPUSH 01/29/25 15:55 40 mg STAT STA Administration Protocol Insulin Human Regular 10 unit 01/29/25 15:41 01/29/25 16:41 Insulin Regular, Human 100 Unit/Ml 10 Ml Vial IVPUSH 01/29/25 15:42 10 unit ONCE ONE Administration Sodium Bicarbonate 50 meq 01/29/25 15:45 01/29/25 16:45 Sodium Bicarbonate 8.4% 50 Meq/50 Ml Syringe IVPUSH 01/29/25 15:51 50 meq Q5M PAVEL Administration Sodium Zirconium Cyclosilicate 10 gm 01/29/25 15:41 01/29/25 16:35 Sodium Zirconium Cyclosilicate 10 Gm Powd.Pack PO 01/29/25 15:42 10 gm ONCE ONE Administration Medical Decision Making Medical Decision Making MDM Narrative: 64-year-old male presenting with diabetes, hypertension, ischemic cardiomyopathy, chronic kidney disease stage 5 with proteinuria who presents emergency department for evaluation of shortness of breath x3 days, pitting edema x2 months and chest pain. The patient states he is having severe dyspnea on exertion over the past 3 days, orthopnea and increased leg swelling. Review of systems was positive for chills, nonproductive cough, pleuritic chest pain, shortness of breath, dyspnea on exertion, nausea with no vomiting, no diarrhea, the patient is able to urinate without difficulty. Vital signs were normal. Lung exam was clear. Patient has 1+ pitting edema bilaterally symmetric. Differential diagnosis: ?Includes but is not limited to myocardial infarction, myocardial ischemia, pulmonary edema, worsening renal failure, anemia, electrolyte abnormalities Course: 16:40 My interpretation patient's laboratory evaluation is as follows: WBC low 4300. Potassium elevated 8.1-this is the patient's highest potassium documented. BUN and creatinine elevated 71 and 7.09-similar to baseline. COVID-19, influenza and RSV were negative. BNP elevated 8508. High sensitive troponin I detectable but not elevated at 7.3. Chest x-ray consistent with borderline cardiomegaly with possible pulmonary edema. The patient's high potassium was treated with Lokelma 10 mg orally, D50 25 mg IV, regular insulin 10 units IV, sodium bicarb 50 mEq IV, concentrated albuterol 10 mg nebulized and Lasix 40 mg IV. I did discuss the patient's presentation with the retail commission sales associate, Dr. Perez. He states that the patient needs urgent dialysis and he will come in in his establish a dialysis catheter and arrange for dialysis. 18:34 Dr. Perez did come to the emergency department and evaluate the patient. The patient will be admitted to the intensive care unit for further management. Differential Diagnosis Differential Diagnoses: The differential diagnosis associated with the presentation includes (See above) Admission/Observation Consideration of admission/observation: Escalation of care including admission/observation considered (Yes) Consult Healthcare Provider Management of the patient was discussed with: Hospitalist (Hospitalist, nurse practitioner Cat José) and Manager Intensive Care Unit (Retail Grocer, Dr. Martins) XR CHEST CLINICAL INFORMATION: dyspnea, 3 days COMPARISON: January 30, [id number] FINDINGS: Again noted are mediastinal wires. The lowest wire is broken on the right side, unchanged. The cardiac size is enlarged. There are increased perihilar markings, right greater than left, with indistinct vessel margins. Lung volumes are low. IMPRESSION: Borderline cardiomegaly and suspected pulmonary edema. Electronically signed by: Don Ashby MD 01/29/2025 03:04 PM EST Lab Data [facility] Lab Attestation statement: I reviewed the patient's lab results. 01/29/25 14:49 01/29/25 14:49 Labs: Lab Results 01/29/25 Range/Units 14:49 WBC 4.3 L (4.8-10.8) X10*3/uL RBC 4.22 L (4.60-5.80) X10*6/uL Hgb 12.4 L (14.0-18.0) g/dl Hct 38.4 L (42.0-52.0) % MCV 91.0 (80.0-98.0) fL MCH 29.4 (27.0-33.0) pg MCHC 32.3 (31.0-36.0) g/dl RDW 16.8 H (11.0-16.0) % Plt Count 213 (160-400) X10*3/uL MPV 12.3 (9.4-12.4) fL Immature Gran % (Auto) 0.2 (0.0-0.4) % Neut % (Auto) 64.5 (45-73) % Lymph % (Auto) 20.5 (20-40) % [place] % (Auto) 9.9 (2-11) % Eos % (Auto) 4.4 H (0-4) % Baso % (Auto) 0.5 (0-2) % Lymph # (Auto) 0.9 L (1.2-4.9) X10*3/uL [place] # (Auto) 0.4 (0.1-1.2) X10*3/uL Eos # (Auto) 0.2 (0.0-0.4) X10*3/uL Baso # (Auto) 0.0 (0.0-0.2) X10*3/uL Abs Immat Gran (auto) 0.01 (0.00-0.03) X10*3/uL Absolute Neuts (auto) 2.8 (2.0-8.3) x10*3/uL Absolute Nucleated RBC 0.000 (0.0-0.012) X10*3/uL Nucleated RBC % (auto) 0.0 (0.0-0.2) /100WBC Sodium 140 (135-145) mmol/L Potassium 8.1 H* D (3.3-5.1) mmol/L Chloride 109 H (96-108) mmol/L Carbon Dioxide 24 (22-29) mmol/L Anion Gap 15 (12-20) BUN 71 H (9-16) mg/dL Creatinine 7.09 H* (0.5-1.4) mg/dL Estim Creat Clear Calc 10.5 Estimated GFR 8 Random Glucose 80 (60-115) mg/dL Calcium 8.9 (8.4-10.2) mg/dL Magnesium 2.0 (1.6-2.6) mg/dL Total Bilirubin 0.4 (0.0-1.0) mg/dL AST 24 (5-37) U/L ALT 36 (0-40) U/L Alkaline Phosphatase 90 (39-117) U/L Troponin I High Sens 5.5 (<3.5-35.0) ng/L NT-Pro-B Natriuret Pep 8508.0 H (<300) pg/mL Total Protein 7.3 (6.5-8.0) g/dL Albumin 4.1 (3.5-5.0) g/dL Influenza Type A (PCR) NEGATIVE (Negative) Influenza Type B (PCR) NEGATIVE (Negative) RSV RNA Qual (PCR) NEGATIVE (Negative) SARS-CoV-2 RNA (RT-PCR) NEGATIVE (Negative) Radiology Impression Discussion of test interpretation with radiology: I have reviewed the radiologist's reading. External Record Review External record reviewed: Office record Chronic Conditions Patient?s care impacted by: Diabetes and Hypertension Critical Care Time Critical Care Time Critical Care Time: Yes Total Critical Care Time: 45 Attestation: Critical Care: The patient was critically ill with a high probability of imminent or life threatening deterioration. I spent greater than 30 minutes of discontinuous time evaluating the patient,delivering critical care at the bedside, discussing and evaluating pertinent data with consultants. Critical care time does not include time spent performing separately billable procedures or teaching. Total time spent performing critical care was 45 minutes. Discharge Plan Discharge Print Language: [place]
[2025-01-29 15:01] LABS: MANUAL DIFF FLAG NO
[2025-01-29 15:03] LABS: Hematocrit 38.4 % (42.0-52.0); Hemoglobin 12.4 g/dl (14.0-18.0); Imm Gran Abs Auto 0.01 X10*3/uL (0.00-0.03); Imm Gran Pct Auto 0.2 % (0.0-0.4); Lymphocytes Absolute Auto 0.9 X10*3/uL (1.2-4.9); Mean Corpuscular HGB Conc 32.3 g/dl (31.0-36.0); Mean Corpuscular Hemoglobin 29.4 pg (27.0-33.0); Mean Corpuscular Volume 91.0 fL (80.0-98.0); NRBC Abs Auto 0.000 X10*3/uL (0.0-0.012); NRBC Pct Auto 0.0 /100WBC (0.0-0.2); Platelet Count 213 X10*3/uL (160-400); Red Blood Count 4.22 X10*6/uL (4.60-5.80); White Blood Count 4.3 X10*3/uL (4.8-10.8)
[2025-01-29 15:28] LABS: Alanine Aminotransferase 36 U/L (0-40); Albumin Level 4.1 g/dL (3.5-5.0); Alkaline Phosphatase 90 U/L (39-117); Anion Gap 15 (12-20); Aspartate Amino Transferase 24 U/L (5-37); Blood Urea Nitrogen 71 mg/dL (9-16); Calcium 8.9 mg/dL (8.4-10.2); Carbon Dioxide 24 mmol/L (22-29); Chloride 109 mmol/L (96-108); Creatinine Clr Calc Pharmacy 10.5; Estimated Glomerular Filt Rate 8; Magnesium 2.0 mg/dL (1.6-2.6); Potassium 8.1 mmol/L (3.3-5.1); Sodium 140 mmol/L (135-145); Total Protein 7.3 g/dL (6.5-8.0)
[2025-01-29 15:33] LABS: Troponin-I High Sensitivity 5.5 ng/L (<3.5-35.0)
[2025-01-29 15:43] LABS: Resp Syncy Virus RNA Qual PCR NEGATIVE (Negative); SARS COV2 PCR INHOUSE NEGATIVE (Negative)
[2025-01-29] MEDS: Albuterol Sulfate 7.5 MG, Albuterol Sulfate (0.083%) 2.5 MG 10 MG INHALE (16:11)
[2025-01-29] MEDS: Furosemide 40 MG/4 ML VIAL IVPUSH (16:35)
--- NOTE | 2025-01-29 18:15 | PC.NURSE ---
This RN present for sterile placement of dialysis catheter by Ana GRACE. Pt tolerated procedure very well. VSS on monitor. Aware of plan for admission and care, able to make needs known.
--- OUTSIDE RECORDS SUMMARY | 2025-01-29 18:24 | XMS_ITS | Clinical Summary ---
Author Organization [facility] Address [address] [place] [address] Care Team Providers Care Quality Head Name Role Phone Edilia Keenan Primary Care Provider [phone] Allergies No known active allergies Medications metoprolol [...] of 2) 2010 Alcohol/Substance Use Screening 03/01/2024 Influenza Vaccine (#1) 2024 COVID-19 Vaccine (1 - 2024-2 6 season) 2024 RSV Vaccine (60+ years old a nd patients) (1 - 1-dose 75+ series) 12/11/2035 Hepatitis B Vaccines Aged Out No long er eligible based on patient's age to complete this topic Medical Devices Implanted Type Area Jewel Oliving Machine Operator Device Identifier Shelf Expiration Date Model / Serial / Lot Graft Patch Pericardium 1.5cmx1.5cm Tutoplast - [id number] - [id number] Implanted:Qty: 1 on 03/11/2022 by Zuleima Corral MD at [facility] Graft Left: Eye [employer] 05/29/2026 [id number] / Valve Glaucoma Fp7 Silicone Sterile [id number] [facility] - [id number] Implanted:Qty: 1 on 03/11/2022 by Zuleima Corral MD at [facility] Implant Left: Eye [employer] 12/01/2023 [id number] / / [id number] Insurance [facility] MEDICAID Advance Directives * Full Code (Latest Code Status on File) Date Activated Date Inactivated Comments 03/11/2022 7:50 AM 03/11/2022 2:28 PM Care Teams Quality Head Relationship Specialty Start Date End Date Edilia Keenan [address] [place] [address] [place] [address] PCP - General Internal Medicine 03/11/22
--- NOTE | 2025-01-29 18:46 | PM.CCHP ---
History of Present Illness Date of Service: 01/29/25 Chief Complaint: Hyperkalemia 64-year-old gentleman with PMH of CKD stage 5 secondary to diabetes mellitus, hypertension and ischemic cardiomyopathy presented to the ED with history of 2 weeks of fatigue, decreased appetite and hyperkalemic to 8.1. Patient is following Dr. Horton in [facility] and is known to have CKD stage 5. A month ago he was in [facility] and had developed significant symptoms of uremia for which he had seen a financial institution vice president in [facility]. Since the past 2 weeks patient developed bilateral lower extremity swelling along with fatigue and weakness. For the 4 or 5 days he developed decreased appetite, decreased thirst. The presented to the ED with weakness, fatigue and his potassium was noted to be 8.1 so initiated on renal replacement therapy. Apparently patient lives alone by himself at home, he is from his and has some brothers in the town. Review of Systems Review of Systems: Const : no body aches, no chills, ++ excessive sweating and ++ fatigue Eyes: no blurry vision and no change in vision ENT: no bleeding gums and no change in voice, ++ dizziness Card: no chest pain, no shortness of breath, no orthopnea, no PND Resp: no cough, no excessive phlegm production, no SOB GI: no abdominal pain and no nausea, no vomiting, decreased appetite : no hematuria, no urinary frequency and no difficulty voiding Musc: no abnormal gait, no bone pain Neuro: no abnormal movements, no weakness, no dizziness, no abnormal gait and no behavioral changes Psych: no behavioral changes and no change in appetite Endo: no change in body appearance, no cold intolerance, no excessive sweating and no fatigue PMFSH Past Medical History Medical History Pneumonia due to COVID-19 virus Pre-op examination Positive for macroalbuminuria Ischemic cardiomyopathy STEMI (ST elevation myocardial infarction) Type 2 diabetes mellitus with other diabetic kidney complication Proteinuria Hyperlipidemia LDL goal <70 Essential hypertension Family History Family History Father CVD (cardiovascular disease) HTN (hypertension) Diabetes Mother CVD (cardiovascular disease) Diabetes Brother Diabetes HTN (hypertension) CVD (cardiovascular disease) Surgical History Surgical History History of open heart surgery Hx of CABG Social History Social History Household Members: None Housing: Apartment Do you presently have visiting nurse or other home services: No Alcohol intake: current Alcohol intake frequency: holidays/special occasions only Alcohol type: wine Patient Tobacco Use Status: Former Tobacco user Tobacco use type: Cigarette Smoked in Last 30 Days: No e-Cigarette/Vaping Use: Never Used Second Hand Smoke Exposure: No Use of substances other than those prescribed or required for medical reasons: No Have you been hit, kicked, punched, or otherwise hurt by someone within the past year? If so, by whom?: No Do you feel safe in your current relationship?: No Current Relationship Is there a partner from a previous relationship who is making you feel unsafe now?: No Are you made to feel afraid or neglected: No Advance Directives: No Advance Directives Information Provided: Yes Do you have a plan to hurt others: No Plan Recently lost weight without trying: No How much weight loss: Unsure Eating poorly because of decreased appetite: No Nutrition screen score: 2 Nutrition Risks: No Nutritional Risk service: No Current occupational status: unemployed Cognitive needs: No Hearing needs: No Vision needs: Yes Meds Allergies Allergy/AdvReac Type Severity Reaction Status Date / Time lisinopril AdvReac Intermediate cough Verified 01/29/25 13:58 Active Medications: Current Medications Acetaminophen (Acetaminophen 325 Mg Tablet) 650 mg PO Q6H PRN PRN Reason: Fever >100.4 Heparin Sodium (Porcine) (Heparin Sodium,Porcine 5,000 Unit/Ml Vial) 5,000 unit SUBCUT Q8H [facility] Omeprazole (Omeprazole 40 Mg Capsule.Dr) 40 mg PO DAILY@0630 [facility] Ondansetron HCl (Ondansetron Hcl 4 Mg/2 Ml Vial) 4 mg IVPUSH Q8H PRN PRN Reason: Nausea and Vomiting Home Medications ?Medication ?Instructions ?Recorded ?Confirmed ?Last Taken ?Type dorzolamide 22.3 mg-timolol 6.8 1 drp ophthalmic-Left BID 06/07/24 01/29/25 Unknown History mg/mL eye drops cholecalciferol (vitamin D3) 125 125 mcg PO DAILY 01/10/25 01/29/25 Unknown History mcg (5,000 unit) capsule fish, borage, flaxseed oils-omega 1 cap PO DAILY 01/10/25 01/29/25 Unknown History 3,6,9 comb no.1 1,200 mg capsule ([place] 3-6-9) brimonidine 0.2 % eye drops 1 drp ophthalmic (eye) DAILY 01/29/25 01/29/25 Unknown History empagliflozin 10 mg tablet 10 mg PO DAILY 01/29/25 01/29/25 Unknown History (Jardiance) latanoprost 0.005 % eye drops 1 drp ophthalmic-Left BEDTIME 01/29/25 01/29/25 Unknown History Physical Exam Vital Signs: Vital Signs: Last Vital Signs Temp 97.6 F 01/29/25 15:40 Pulse 62 01/29/25 16:11 Resp 16 01/29/25 16:11 BP 141/77 H 01/29/25 16:35 Pulse Ox 96 01/29/25 15:40 O2 Del Method Room Air 01/29/25 15:40 BMI result Body Mass Index 28.7 General: in severe acute distress, ill appearing Nutritional Appearance: well nourished and overweight Eyes: appearance normal, both eyes and all related structures; Alignment and Position: alignment normal and position normal Neck: No lymphadenopathy, no thyromegaly Resp: bilateral air entry equal, bibasilar crackles heard Cardio: Regular rate, regular rhythm; Heart sounds: S1 normal heart sound present and S2 normal heart sound present GI: soft, nontender, no guarding, no hepatosplenomegaly : bladder normal to inspection, bladder normal to palpation, no renal angle tenderness Skin: no rashes or lesions noted and elasticity normal Neuro: alert, oriented x 3, moves all extremities Results Labs 01/30/25 04:23 01/30/25 04:23 Labs: Laboratory Results - last 24 hr 01/29/25 14:49 MCV 91.0 MCH 29.4 MCHC 32.3 RDW 16.8 H Plt Count 213 MPV 12.3 Immature Gran % (Auto) 0.2 Neut % (Auto) 64.5 Lymph % (Auto) 20.5 [place] % (Auto) 9.9 Eos % (Auto) 4.4 H Baso % (Auto) 0.5 Lymph # (Auto) 0.9 L [place] # (Auto) 0.4 Eos # (Auto) 0.2 Baso # (Auto) 0.0 Abs Immat Gran (auto) 0.01 Absolute Neuts (auto) 2.8 Absolute Nucleated RBC 0.000 Nucleated RBC % (auto) 0.0 Anion Gap 15 Estim Creat Clear Calc 10.5 Estimated GFR 8 Random Glucose 80 Calcium 8.9 Magnesium 2.0 Total Bilirubin 0.4 AST 24 ALT 36 Alkaline Phosphatase 90 Troponin I High Sens 5.5 NT-Pro-B Natriuret Pep 8508.0 H Total Protein 7.3 Albumin 4.1 Influenza Type A (PCR) NEGATIVE Influenza Type B (PCR) NEGATIVE RSV RNA Qual (PCR) NEGATIVE SARS-CoV-2 RNA (RT-PCR) NEGATIVE Imaging Radiologist's Impressions: Impressions Chest X-Ray 01/29/25 14:52 IMPRESSION: Borderline cardiomegaly and suspected pulmonary edema. Electronically signed by: Don Ashby MD 01/29/2025 03:04 PM [facility] and Plan (1) Essential hypertension: Status: Acute (2) CKD (chronic kidney disease) stage 5, GFR less than 15 ml/min: Status: Acute (3) Hyperkalemia: Status: Acute Plan Acute hyperkalemia: Possibly secondary to progression of CKD Initially medically managed for stabilization Placed an temporary hemodialysis catheter in the right IJ as an access. We will plan for emergent renal replacement therapy CKD stage 5: Possibly secondary to hypertension and diabetic kidney disease Followed up by Dr. Horton in the clinic Progressing to ESRD with uremic symptoms We will place a PermCath, and arrange outpatient dialysis. Hypertension: On amlodipine and metoprolol at home We will hold for dialysis Prophylaxis: Heparin, omeprazole
--- NOTE | 2025-01-29 19:42 | PHA.MEDREC ---
Pharmacy Consult ? Medication Reconciliation Pharmacy has completed the medication reconciliation.Med rec complete, spoke to patient via diplomatic interpreter, compared with pharmacy claim history. Patient unsure of all drug names but was able to confirm some things that had been filled at pharmacy
[2025-01-29 20:06] LABS: Anion Gap 14 (12-20); Blood Urea Nitrogen 71 mg/dL (9-16); Calcium 9.0 mg/dL (8.4-10.2); Carbon Dioxide 25 mmol/L (22-29); Chloride 110 mmol/L (96-108); Creatinine Clr Calc Pharmacy 10.7; Estimated Glomerular Filt Rate 8; Potassium 5.5 mmol/L (3.3-5.1); Sodium 143 mmol/L (135-145)
--- NOTE | 2025-01-29 20:49 | PC.NURSE ---
Patient presents to ED feeling weak SOB, C/P for about 3 days PMH = STEMI, DMT2, HLD, HTN, Proteinuria CXR = borderline cardiomegaly and pulmonary Edema LAbs = Potassium 8.1, creatine 7.09, BNp 8508 TX in ED = 40mg lasix, D50, 10 units insulin, sodium bicarb, and lokelma Dialysis line placed in ED CXR confirmed Interval placement of right central venous catheter with tip in the SVC Patient transferred to ICU
--- NOTE | 2025-01-29 21:08 | PC.NURSE ---
Primary ED RN Garcia attempted to call report over to ICU, SURGICAL ELASTIC KNITTER not available, nursing note added with report details.
[2025-01-30] VITALS (24 sets, daily range): BP systolic 124–161; BP diastolic 69–90; PULSE 63–97; RESP 10–19; TEMP 36–36.9; O2SAT 92–99; BMI 28.5
[2025-01-30 04:29] LABS: VBG HCO3 27 mmol/L (22-26); VBG O2 % Saturation 89.0 %
--- NOTE | 2025-01-30 05:10 | PC.NURSE ---
assumed care from ED 2044 in icu, hemodialysis patient care specialist at bedside to begin session. senior logistics manager at bedside to assist with assessment. pt A&Ox4 soft spoken, offers no complaints at this time, SR on tele, pt GUALLPA, 2L NC. 2kilo removed in dialysis. pt able to void in urinal. call tarango with in reach. high fall risk precautions in place. pt repo q2 for comfort. plan of care continues.
[2025-01-30 05:17] LABS: MANUAL DIFF FLAG NO
[2025-01-30 05:19] LABS: Hematocrit 38.8 % (42.0-52.0); Hemoglobin 12.2 g/dl (14.0-18.0); Imm Gran Abs Auto 0.01 X10*3/uL (0.00-0.03); Imm Gran Pct Auto 0.2 % (0.0-0.4); Lymphocytes Absolute Auto 1.1 X10*3/uL (1.2-4.9); Mean Corpuscular HGB Conc 31.4 g/dl (31.0-36.0); Mean Corpuscular Hemoglobin 28.2 pg (27.0-33.0); Mean Corpuscular Volume 89.8 fL (80.0-98.0); NRBC Abs Auto 0.000 X10*3/uL (0.0-0.012); NRBC Pct Auto 0.0 /100WBC (0.0-0.2); Platelet Count 192 X10*3/uL (160-400); Red Blood Count 4.32 X10*6/uL (4.60-5.80); White Blood Count 4.0 X10*3/uL (4.8-10.8)
[2025-01-30 05:58] LABS: Anion Gap 18 (12-20); Blood Urea Nitrogen 44 mg/dL (9-16); Calcium 9.2 mg/dL (8.4-10.2); Carbon Dioxide 25 mmol/L (22-29); Chloride 106 mmol/L (96-108); Creatinine Clr Calc Pharmacy 13.8; Estimated Glomerular Filt Rate 11; Magnesium 2.0 mg/dL (1.6-2.6); Potassium 5.1 mmol/L (3.3-5.1); Sodium 144 mmol/L (135-145)
[2025-01-30 06:04] LABS: Appearance Urine Clear; Glucose Urine UA Negative (Negative); PH 8.0 (5.0-9.0); Specific Gravity - Urine 1.010 (1.005-1.025); UMIC TRIGGER UACC YES
[2025-01-30 08:24] LABS: HBS Num1 0.79 mIU/mL (0-7.99); HBc Num1 0.04 S/CO (0.00-0.79); HBsAGNum1 0.31 S/CO (0.00-0.99); Hepatitis B Surface Antigen Negative (Negative); ~Hepatitis B Surface Antibody NONREACTIVE (Nonreactive)
--- NOTE | 2025-01-30 08:42 | P.PNCC_ITS ---
Subjective Subjective Date of Service: 01/30/25 Interval History: Underwent 1st session of hemodialysis last night for 2 hours which he tolerated well. Patient seen this morning during 2nd session of hemodialysis Critical Care Time (minutes): 35 Physical Exam 2 Vital Signs: Vital Signs: Last Vital Signs Temp 98.5 F 01/30/25 08:00 Pulse 78 01/30/25 08:00 Resp 18 01/30/25 08:00 BP 137/74 01/30/25 08:00 Pulse Ox 97 01/30/25 08:00 O2 Del Method Nasal Cannula 01/30/25 08:00 O2 Flow Rate 2 01/30/25 08:00 BMI result Body Mass Index 28.5 General: not in any acute distress, ill appearing Nutritional Appearance: well nourished and normal weight Eyes: appearance normal, both eyes and all related structures; Alignment and Position: alignment normal and position normal Neck: No lymphadenopathy, no thyromegaly Resp: bilateral air entry equal, no added sounds present Cardio: Regular rate, regular rhythm; Heart sounds: S1 normal heart sound present and S2 normal heart sound present GI: soft, nontender, no guarding, no hepatosplenomegaly : bladder normal to inspection, bladder normal to palpation, no renal angle tenderness Skin: no rashes or lesions noted and elasticity normal Neuro: alert, oriented x 3, moves all extremities Objective Data Labs 01/30/25 04:23 01/30/25 04:23 Labs: Laboratory Results - last 24 hr 01/29/25 01/29/25 01/30/25 14:49 19:38 04:23 WBC 4.3 L 4.0 L RBC 4.22 L 4.32 L Hgb 12.4 L 12.2 L Hct 38.4 L 38.8 L MCV 91.0 89.8 MCH 29.4 28.2 MCHC 32.3 31.4 RDW 16.8 H 16.3 H Plt Count 213 192 MPV 12.3 12.0 Immature Gran % (Auto) 0.2 0.2 Neut % (Auto) 64.5 56.6 Lymph % (Auto) 20.5 26.1 [place] % (Auto) 9.9 12.7 H Eos % (Auto) 4.4 H 3.7 Baso % (Auto) 0.5 0.7 Lymph # (Auto) 0.9 L 1.1 L [place] # (Auto) 0.4 0.5 Eos # (Auto) 0.2 0.2 Baso # (Auto) 0.0 0.0 Abs Immat Gran (auto) 0.01 0.01 Absolute Neuts (auto) 2.8 2.3 Absolute Nucleated RBC 0.000 0.000 Nucleated RBC % (auto) 0.0 0.0 VBG pH VBG pCO2 VBG pO2 VBG HCO3 VBG O2 Saturation VBG Base Excess Sodium 140 143 144 Potassium 8.1 H* D 5.5 H D 5.1 Chloride 109 H 110 H 106 Carbon Dioxide 24 25 25 Anion Gap 15 14 18 BUN 71 H 71 H 44 H Creatinine 7.09 H* 6.91 H* 5.38 H* Estim Creat Clear Calc 10.5 10.7 13.8 Estimated GFR 8 8 11 Random Glucose 80 93 71 Calcium 8.9 9.0 9.2 Phosphorus 6.1 H Magnesium 2.0 2.0 Total Bilirubin 0.4 AST 24 ALT 36 Alkaline Phosphatase 90 Troponin I High Sens 5.5 NT-Pro-B Natriuret Pep 8508.0 H Total Protein 7.3 Albumin 4.1 Urine Color Urine Appearance Urine pH Ur Specific [place] Urine Protein Urine Glucose (UA) Urine Ketones Urine Blood Urine Nitrite Ur Leukocyte Esterase Urine RBC Urine WBC Ur Squamous Epith Cells Urine Bacteria Hyaline Casts Influenza Type A (PCR) NEGATIVE Influenza Type B (PCR) NEGATIVE RSV RNA Qual (PCR) NEGATIVE SARS-CoV-2 RNA (RT-PCR) NEGATIVE 01/30/25 01/30/25 04:25 05:56 WBC RBC Hgb Hct MCV MCH MCHC RDW Plt Count MPV Immature Gran % (Auto) Neut % (Auto) Lymph % (Auto) [place] % (Auto) Eos % (Auto) Baso % (Auto) Lymph # (Auto) [place] # (Auto) Eos # (Auto) Baso # (Auto) Abs Immat Gran (auto) Absolute Neuts (auto) Absolute Nucleated RBC Nucleated RBC % (auto) VBG pH 7.45 H VBG pCO2 38 VBG pO2 65 VBG HCO3 27 H VBG O2 Saturation 89.0 VBG Base Excess 3.1 Sodium Potassium Chloride Carbon Dioxide Anion Gap BUN Creatinine Estim Creat Clear Calc Estimated GFR Random Glucose Calcium Phosphorus Magnesium Total Bilirubin AST ALT Alkaline Phosphatase Troponin I High Sens NT-Pro-B Natriuret Pep Total Protein Albumin Urine Color Yellow Urine Appearance Clear Urine pH 8.0 Ur Specific [place] 1.010 Urine Protein 300 (3+) H Urine Glucose (UA) Negative Urine Ketones Trace Urine Blood Negative Urine Nitrite Negative Ur Leukocyte Esterase Negative Urine RBC 0-2 Urine WBC 0-5 Ur Squamous Epith Cells 0-2 Urine Bacteria None Seen Hyaline Casts 0-2 Influenza Type A (PCR) Influenza Type B (PCR) RSV RNA Qual (PCR) SARS-CoV-2 RNA (RT-PCR) Progress Note: A&P Assessment and plan (1) Essential hypertension: Status: Acute (2) Type 2 diabetes mellitus with other diabetic kidney complication: Status: Acute (3) CKD (chronic kidney disease) stage 5, GFR less than 15 ml/min: Status: Acute (4) Anemia in chronic kidney disease: Status: Acute Plan 1. Chronic kidney disease stage 5 now progressing to ESRD initiated on maintenance hemodialysis due to symptoms of uremia including weakness fatigue appetite and presenting with hyperkalemia with a potassium of 8.4 For session of dialysis initiated 01/29/2025 emergently for hyperkalemia Undergoing 2nd session this morning, we will do another session tomorrow HD today with goals: duration 2 hours UF: 2 L, 4k bath We will consult IR for PermCath placement 2. Electrolyte Management: Hyperkalemia: Underwent emergent dialysis session yesterday for hyperkalemia Receiving 2nd session of dialysis Hypocalcemia: We will get Vitamin D level, and PTH Hyperphosphatemia: We will get phos level with tomorrow's lab 3. Anemia of ESRD: Hb 12.2, no indication for erythropoietin 4. Hypertension: Hold antihypertensives prior to HD We will restart home metoprolol at a lower dose given his history of CAD, we will hold off on amlodipine TTE in 01/2022 showed normal LV systolic function but impaired relaxation, decreased RV systolic function 5. Diabetes mellitus: On Jardiance at home sugars well controlled We will transfer the patient to the floor Quality Stroke Does the patient have a stroke diagnosis?: No VTE Prior VTE?: No VTE Risk Level:: Medical - low VTE Device Contraindication: N/A - Device Ordered VTE Drug Contraindication: N/A - Med Ordered
[2025-01-30 09:17] LABS: Venous Blood Gas Refer to POC result
--- NOTE | 2025-01-30 10:49 | W.PM.CCHP ---
Procedures Date of Service Date of Service: 01/30/25 Central Line Placement Right IJ: Central Line Comments: Triple-lumen hemodialysis catheter placement Consent for Procedure: Elective - informed consent obtained Time out performed: Yes Sterile Technique Used: Yes Patient placed on monitor/pulse ox: Yes prep: mask, gown and gloves Central line prep: Povidone-Iodine 1% Local anesthesia used: lidocaine 1% Amount of anesthesia used (ml): 10 Ultrasound used for placement: Yes Central line lumen inserted: triple Post procedure: sutured in place and good blood return Post procedure x-ray: tip of catheter in good position and no pneumothorax seen Patient tolerated procedure: well Complications: none
--- NOTE | 2025-01-30 14:00 | PC.NURSE ---
Transfer order received, patient was transported to OR for HD cath placement, report given to Russ, patient to be transfer to [facility] room 375 after cath placement.
--- NOTE | 2025-01-30 14:52 | MHC.CM.PN ---
Met with pt who is getting ready for HD treatment: pt states he resides alone but does have family close should he need assistance. Pt has no services, has working glucometer, HCP deferred. Pt may need outpt HD: discussed [facility] services for med teaching/education - pt receptive to [facility] referral. Pt will contact family for transportation. IMM in chart. CM to follow
--- NOTE | 2025-01-30 15:11 | PM.EVENT ---
Documented by User: Mike Tejada NP 01/30/25 15:21 Event Note Date of Service: 01/30/25 Event Note: Patient requiring HD. 15 F tunneled HD cath placed via right IJ. Flushes and aspirates well. Patient tolerated procedure well. Right temp dialysis cath removed. Hemostasis achieved with one suture at site. Please remove mid neck suture in 2-3 days. Time Spent With Patient Time: Total time managing care of this patient today ___45_ minutes. Documented by User: Russ Kerr MD 02/05/25 10:57 Event Note Date of Service: 02/05/25
--- NOTE | 2025-01-30 16:13 | P.EN_ITS ---
Event Note Date of Service: 01/30/25 Event Note: Received sign-out from ICU attending HI appreciate Patient otherwise medically optimized Awaiting rehab place that can do a hemodialysis 3 times a week and hence the major case detective is working on it Patient to receive hemodialysis tomorrow Time Spent With Patient Time: Total time managing care of this patient today ____ minutes.
[2025-01-30 16:35] LABS: Glucose, Whole Blood 93 mg/dL (60-115)
[2025-01-30 20:53] LABS: Glucose, Whole Blood 196 mg/dL (60-115)
[2025-01-31 03:24] VITALS: BP 136/91; PULSE 72; RESP 18; TEMP 36.2; O2SAT 98
[2025-01-31 06:27] LABS: MANUAL DIFF FLAG NO
[2025-01-31 06:37] LABS: Hematocrit 42.5 % (42.0-52.0); Hemoglobin 13.4 g/dl (14.0-18.0); Imm Gran Abs Auto 0.02 X10*3/uL (0.00-0.03); Imm Gran Pct Auto 0.4 % (0.0-0.4); Lymphocytes Absolute Auto 1.3 X10*3/uL (1.2-4.9); Mean Corpuscular HGB Conc 31.5 g/dl (31.0-36.0); Mean Corpuscular Hemoglobin 28.4 pg (27.0-33.0); Mean Corpuscular Volume 90.0 fL (80.0-98.0); NRBC Abs Auto 0.000 X10*3/uL (0.0-0.012); NRBC Pct Auto 0.0 /100WBC (0.0-0.2); Platelet Count 170 X10*3/uL (160-400); Red Blood Count 4.72 X10*6/uL (4.60-5.80); White Blood Count 5.5 X10*3/uL (4.8-10.8)
[2025-01-31 06:58] LABS: Alanine Aminotransferase 32 U/L (0-40); Albumin Level 4.4 g/dL (3.5-5.0); Alkaline Phosphatase 97 U/L (39-117); Anion Gap 17 (12-20); Aspartate Amino Transferase 28 U/L (5-37); Blood Urea Nitrogen 40 mg/dL (9-16); Calcium 10.0 mg/dL (8.4-10.2); Carbon Dioxide 25 mmol/L (22-29); Chloride 106 mmol/L (96-108); Creatinine Clr Calc Pharmacy 14.1; Estimated Glomerular Filt Rate 11; Magnesium 2.1 mg/dL (1.6-2.6); Parathyroid Hormone Intact 430.0 pg/mL (8.7-77.1); Potassium 5.3 mmol/L (3.3-5.1); Sodium 143 mmol/L (135-145); Total Protein 7.9 g/dL (6.5-8.0)
--- NOTE | 2025-01-31 07:17 | HO.PM.IMPN ---
Subjective Subjective Date of Service: 01/31/25 Interval History: HD again today awaiting another HD session on wednesday after which he can be DC Review of Systems Review of Systems: Yes all other systems are reviewed and are negative Physical Exam Vital Signs: Vital Signs: Last Vital Signs Temp 97.1 F 01/31/25 03:24 Pulse 72 01/31/25 03:24 Resp 18 01/31/25 03:24 BP 136/91 H 01/31/25 03:24 Pulse Ox 98 01/31/25 03:24 O2 Del Method Nasal Cannula 01/31/25 03:24 O2 Flow Rate 2 01/31/25 03:24 BMI result Body Mass Index 28.5 General: not in any acute distress, ill appearing Resp: bilateral air entry equal, no added sounds present Cardio: Regular rate, regular rhythm; Heart sounds: S1 normal heart sound present and S2 normal heart sound present GI: soft, nontender, no guarding, no hepatosplenomegaly Skin- permacath + Objective Data Active Medications Acetaminophen (Acetaminophen 325 Mg Tablet) 650 mg PO Q6H PRN PRN Reason: Fever >100.4 Brimonidine Tartrate (Brimonidine Tartrate 0.2% Oph 5 Ml Bottle) 1 drop EYE-BOTH DAILY [facility] Dextrose (Dextrose 50 % 25 Gm/50 Ml Syringe) 25 gm IVPUSH Q15M PRN; Protocol PRN Reason: per Hypoglycemia Standing Ord. Dorzolamide/Timolol (Dorzolamide/Timolo 2.23%/0.68% 10 Ml Drbtl) 1 drop EYE-LEFT BID [facility] Glucose (Glucose Gel 15 Gm Gel..Gram.) 15 gm PO Q15M PRN; Protocol PRN Reason: per Hypoglycemia Standing Ord. Heparin Sodium (Porcine) (Heparin Sodium,Porcine 5,000 Unit/Ml Vial) 5,000 unit SUBCUT Q8H [facility] Last Admin: 01/31/25 03:22 Dose: 5,000 unit Documented By: EILEEN Hydrocortisone (Hydrocortisone 1 % Cream 28.35 Gm Tube) 1 appl TOPICAL TID PRN; Protocol PRN Reason: skin irritation Piperacillin Sod/Tazobactam (Sod 4.5 gm/ Sodium Chloride) 100 mls @ 200 mls/hr IV Q12H [facility] Last Infusion: 01/30/25 23:40 Dose: Infused Documented By: EILEEN Insulin Human Lispro (Insulin Lispro 100 Unit/Ml 3 Ml Vial) 0 unit SUBCUT QIDACHS [facility]; Protocol Last Admin: 01/30/25 21:39 Dose: 2 unit Documented By: EILEEN Latanoprost (Latanoprost 0.005 % Ophth Monet 2.5 Ml Drops) 1 drop EYE-LEFT BEDTIME [facility] Metoprolol Succinate (Metoprolol Succinate Er 100 Mg Tab.Er.24h) 100 mg PO DAILY [facility]; Protocol Omeprazole (Omeprazole 40 Mg Capsule.Dr) 40 mg PO DAILY@0630 [facility] Last Admin: 01/31/25 06:35 Dose: 40 mg Documented By: EILEEN Ondansetron HCl (Ondansetron Hcl 4 Mg/2 Ml Vial) 4 mg IVPUSH Q8H PRN PRN Reason: Nausea and Vomiting Vitamin D (Cholecalciferol (Vitamin D3) 25 Mcg Tablet) 125 mcg PO DAILY [facility] Last Admin: 01/30/25 10:07 Dose: 125 mcg Documented By: GRETEL Labs 01/31/25 06:00 01/31/25 06:00 Labs: Laboratory Results - last 24 hr 01/30/25 01/30/25 01/30/25 04:23 16:31 20:45 MCV MCH MCHC RDW Plt Count MPV Immature Gran % (Auto) Neut % (Auto) Lymph % (Auto) [place] % (Auto) Eos % (Auto) Baso % (Auto) Lymph # (Auto) [place] # (Auto) Eos # (Auto) Baso # (Auto) Abs Immat Gran (auto) Absolute Neuts (auto) Absolute Nucleated RBC Nucleated RBC % (auto) Anion Gap Estim Creat Clear Calc Estimated GFR POC Glucose 93 196 H Random Glucose Calcium Phosphorus Magnesium Total Bilirubin AST ALT Alkaline Phosphatase Total Protein Albumin PTH Intact Hep Bs Antigen Negative Hep Bs Antibody NONREACTIVE Hep B Core Total Ab Nonreactive 01/31/25 01/31/25 01/31/25 06:00 06:00 06:00 MCV 90.0 MCH 28.4 MCHC 31.5 RDW 16.2 H Plt Count 170 MPV 12.1 Immature Gran % (Auto) 0.4 Neut % (Auto) 61.9 Lymph % (Auto) 22.7 [place] % (Auto) 9.6 Eos % (Auto) 4.9 H Baso % (Auto) 0.5 Lymph # (Auto) 1.3 [place] # (Auto) 0.5 Eos # (Auto) 0.3 Baso # (Auto) 0.0 Abs Immat Gran (auto) 0.02 Absolute Neuts (auto) 3.4 Absolute Nucleated RBC 0.000 Nucleated RBC % (auto) 0.0 Anion Gap Cancelled 17 Estim Creat Clear Calc Cancelled 14.1 Estimated GFR Cancelled POC Glucose Random Glucose Calcium Phosphorus Magnesium Total Bilirubin AST ALT Alkaline Phosphatase Total Protein Albumin PTH Intact Hep Bs Antigen Hep Bs Antibody Hep B Core Total Ab 01/31/25 01/31/25 01/31/25 06:00 06:00 06:00 MCV MCH MCHC RDW Plt Count MPV Immature Gran % (Auto) Neut % (Auto) Lymph % (Auto) [place] % (Auto) Eos % (Auto) Baso % (Auto) Lymph # (Auto) [place] # (Auto) Eos # (Auto) Baso # (Auto) Abs Immat Gran (auto) Absolute Neuts (auto) Absolute Nucleated RBC Nucleated RBC % (auto) Anion Gap Estim Creat Clear Calc Estimated GFR 11 POC Glucose Random Glucose Cancelled 71 Calcium Cancelled 10.0 D Phosphorus 6.1 H Magnesium 2.1 Total Bilirubin 0.5 AST 28 ALT 32 Alkaline Phosphatase 97 Total Protein 7.9 Albumin 4.4 PTH Intact 430.0 H Hep Bs Antigen Hep Bs Antibody Hep B Core Total Ab Assessment and Plan (1) End stage renal disease: Status: Acute Plan 64-year-old gentleman with PMH of Diabetic nephropathy CKD stage 5 , hypertension and ischemic cardiomyopathy presented to the ED with history of 2 weeks of fatigue, decreased appetite and hyperkalemic to 8.1. Pt is now ESRD, and needs another HD session on Wednesday and will get placement to a facility which has HD capapbilities. # ESRD Likely diabetic nephropathy , progression from CKD 5 Nephro following HD 2nd session today Has permacath DC Wednesday post HD session if he gets a facility which has HD capabilities #HyperK Resolved post HD Daily labs #Severe electrolyte abn renal etiology check CMP and replete to goal # HTN Cont htn meds #ICM Cont home meds DVT px- Heparin DC Wednesday post HD session if he gets a facility which has HD capabilities This note is constructed using voice recognition software. While every effort has been made to ensure accuracy, automobile radiator mechanic errors may have been included. Quality Stroke Does the patient have a stroke diagnosis?: No VTE Prior VTE?: No VTE Risk Level:: Medical - low VTE Device Contraindication: N/A - Device Ordered VTE Drug Contraindication: N/A - Med Ordered
[2025-01-31 07:20] VITALS: BP 129/83; PULSE 82; RESP 18; TEMP 36.1; O2SAT 99
[2025-01-31 07:31] LABS: Glucose, Whole Blood 80 mg/dL (60-115)
[2025-01-31] MEDS: Metoprolol Succinate ER 100 MG TAB.ER.24H PO (08:25)
[2025-01-31 10:16] VITALS: O2SAT 97
--- NOTE | 2025-01-31 10:59 | MHC.CM.PN ---
PT rec STR. CM reviewed with patient who is agreeable to plan. He is aware there are limited SNF's in the area that provide HD on site. He does not have a facility preference. Awaiting nephro consult for more info on outpatient HD plan/schedule. SNF referrals sent via [facility]. CM will continue to follow.
--- NOTE | 2025-01-31 11:11 | PM.PNNEP ---
Subjective Subjective Date of Service: 01/31/25 Interval history: Seen during dialysis 3rd session of dialysis today Physical Exam Vital Signs: Vital Signs: Last Vital Signs Temp 97.0 F 01/31/25 07:20 Pulse 82 01/31/25 07:20 Resp 18 01/31/25 07:20 BP 129/83 01/31/25 07:20 Pulse Ox 97 01/31/25 10:16 O2 Del Method Nasal Cannula 01/31/25 07:20 O2 Flow Rate 2.0 01/31/25 07:20 BMI result Body Mass Index 28.5 General: not in any acute distress, ill appearing Nutritional Appearance: well nourished and normal weight Eyes: appearance normal, both eyes and all related structures; Alignment and Position: alignment normal and position normal Neck: No lymphadenopathy, no thyromegaly Resp: bilateral air entry equal, no added sounds present Cardio: Regular rate, regular rhythm; Heart sounds: S1 normal heart sound present and S2 normal heart sound present GI: soft, nontender, no guarding, no hepatosplenomegaly : bladder normal to inspection, bladder normal to palpation, no renal angle tenderness Skin: no rashes or lesions noted and elasticity normal Neuro: alert, oriented x 3, moves all extremities Objective Data Labs 01/31/25 06:00 01/31/25 06:00 Labs: Laboratory Results - last 24 hr 01/30/25 01/30/25 01/31/25 16:31 20:45 06:00 WBC 5.5 RBC 4.72 Hgb 13.4 L Hct 42.5 MCV 90.0 MCH 28.4 MCHC 31.5 RDW 16.2 H Plt Count 170 MPV 12.1 Immature Gran % (Auto) 0.4 Neut % (Auto) 61.9 Lymph % (Auto) 22.7 [place] % (Auto) 9.6 Eos % (Auto) 4.9 H Baso % (Auto) 0.5 Lymph # (Auto) 1.3 [place] # (Auto) 0.5 Eos # (Auto) 0.3 Baso # (Auto) 0.0 Abs Immat Gran (auto) 0.02 Absolute Neuts (auto) 3.4 Absolute Nucleated RBC 0.000 Nucleated RBC % (auto) 0.0 Sodium Cancelled Potassium Chloride Carbon Dioxide Anion Gap BUN Creatinine Estim Creat Clear Calc Estimated GFR POC Glucose 93 196 H Random Glucose Calcium Phosphorus Magnesium Total Bilirubin AST ALT Alkaline Phosphatase Total Protein Albumin PTH Intact 01/31/25 01/31/25 01/31/25 06:00 06:00 06:00 WBC RBC Hgb Hct MCV MCH MCHC RDW Plt Count MPV Immature Gran % (Auto) Neut % (Auto) Lymph % (Auto) [place] % (Auto) Eos % (Auto) Baso % (Auto) Lymph # (Auto) [place] # (Auto) Eos # (Auto) Baso # (Auto) Abs Immat Gran (auto) Absolute Neuts (auto) Absolute Nucleated RBC Nucleated RBC % (auto) Sodium 143 Potassium Cancelled 5.3 H Chloride Cancelled 106 Carbon Dioxide Cancelled Anion Gap BUN Creatinine Estim Creat Clear Calc Estimated GFR POC Glucose Random Glucose Calcium Phosphorus Magnesium Total Bilirubin AST ALT Alkaline Phosphatase Total Protein Albumin PTH Intact 01/31/25 01/31/25 01/31/25 06:00 06:00 06:00 WBC RBC Hgb Hct MCV MCH MCHC RDW Plt Count MPV Immature Gran % (Auto) Neut % (Auto) Lymph % (Auto) [place] % (Auto) Eos % (Auto) Baso % (Auto) Lymph # (Auto) [place] # (Auto) Eos # (Auto) Baso # (Auto) Abs Immat Gran (auto) Absolute Neuts (auto) Absolute Nucleated RBC Nucleated RBC % (auto) Sodium Potassium Chloride Carbon Dioxide 25 Anion Gap Cancelled 17 BUN Cancelled 40 H Creatinine Cancelled Estim Creat Clear Calc Estimated GFR POC Glucose Random Glucose Calcium Phosphorus Magnesium Total Bilirubin AST ALT Alkaline Phosphatase Total Protein Albumin PTH Intact 01/31/25 01/31/25 01/31/25 06:00 06:00 06:00 WBC RBC Hgb Hct MCV MCH MCHC RDW Plt Count MPV Immature Gran % (Auto) Neut % (Auto) Lymph % (Auto) [place] % (Auto) Eos % (Auto) Baso % (Auto) Lymph # (Auto) [place] # (Auto) Eos # (Auto) Baso # (Auto) Abs Immat Gran (auto) Absolute Neuts (auto) Absolute Nucleated RBC Nucleated RBC % (auto) Sodium Potassium Chloride Carbon Dioxide Anion Gap BUN Creatinine 5.25 H* Estim Creat Clear Calc Cancelled 14.1 Estimated GFR Cancelled 11 POC Glucose Random Glucose Cancelled Calcium Phosphorus Magnesium Total Bilirubin AST ALT Alkaline Phosphatase Total Protein Albumin PTH Intact 12/05/2301/31/25 01/31/25 06:00 06:00 07:21 WBC RBC Hgb Hct MCV MCH MCHC RDW Plt Count MPV Immature Gran % (Auto) Neut % (Auto) Lymph % (Auto) [place] % (Auto) Eos % (Auto) Baso % (Auto) Lymph # (Auto) [place] # (Auto) Eos # (Auto) Baso # (Auto) Abs Immat Gran (auto) Absolute Neuts (auto) Absolute Nucleated RBC Nucleated RBC % (auto) Sodium Potassium Chloride Carbon Dioxide Anion Gap BUN Creatinine Estim Creat Clear Calc Estimated GFR POC Glucose 80 Random Glucose 71 Calcium Cancelled 10.0 D Phosphorus 6.1 H Magnesium 2.1 Total Bilirubin 0.5 AST 28 ALT 32 Alkaline Phosphatase 97 Total Protein 7.9 Albumin 4.4 PTH Intact 430.0 H Procedures Date of Service Date of Service: 01/31/25 Assessment & Plan Assessment and plan (1) Essential hypertension: Status: Acute (2) End stage renal disease: Status: Acute Plan 1. Chronic kidney disease stage 5 now progressing to ESRD initiated on maintenance hemodialysis due to symptoms of uremia including weakness fatigue appetite and presenting with hyperkalemia with a potassium of 8.4 For session of dialysis initiated 01/29/2025 emergently for hyperkalemia Undergoing 3rd session of HD today Working on getting him in outpatient dialysis schedule, possibly has a slot MWF in [facility]. Can be discharged on Wednesday post dialysis HD today with goals: duration 2 hours UF: 2 L, 4k bath 2. Metabolic bone disease: Calcium 10.0, PTH elevated to 430 pending Vitamin D level possibly needs Zemplar for hyperparathyroidism, will wait till vitamin D levels come back continue calcitriol 125mcg Hyperphosphatemia: phos 6.1, will add sevelamer with meals 3. 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 Hypertension: Hold antihypertensives prior to HD cotninue metoprolol has history of CAD, conitnue holding off on amlodipine TTE in 01/2022 showed normal LV systolic function but impaired relaxation, decreased RV systolic function 5. Diabetes mellitus: On Jardiance at home sugars well controlled Time Spent With Patient Time: Total time managing care of this patient today ____ minutes. Progress Note: Quality Stroke Does the patient have a stroke diagnosis?: No
[2025-01-31 11:17] LABS: Glucose, Whole Blood 130 mg/dL (60-115)
[2025-01-31 15:53] VITALS: BP 115/62; PULSE 64; RESP 19; O2SAT 98
[2025-01-31 16:14] LABS: Glucose, Whole Blood 145 mg/dL (60-115)
[2025-01-31 19:47] VITALS: BP 125/82; PULSE 61; RESP 19; TEMP 36.1; O2SAT 96
[2025-01-31 20:27] LABS: Glucose, Whole Blood 115 mg/dL (60-115)
[2025-02-01 03:50] VITALS: BP 149/83; PULSE 60; RESP 18; TEMP 36.2; O2SAT 98
[2025-02-01 06:00] VITALS: BMI 27.1
[2025-02-01 06:18] LABS: MANUAL DIFF FLAG NO
[2025-02-01 06:50] LABS: Alanine Aminotransferase 23 U/L (0-40); Albumin Level 3.8 g/dL (3.5-5.0); Alkaline Phosphatase 75 U/L (39-117); Anion Gap 15 (12-20); Aspartate Amino Transferase 23 U/L (5-37); Blood Urea Nitrogen 44 mg/dL (9-16); Calcium 9.3 mg/dL (8.4-10.2); Carbon Dioxide 26 mmol/L (22-29); Chloride 104 mmol/L (96-108); Creatinine Clr Calc Pharmacy 13.3; Estimated Glomerular Filt Rate 12; Magnesium 2.1 mg/dL (1.6-2.6); Potassium 5.2 mmol/L (3.3-5.1); Sodium 140 mmol/L (135-145); Total Protein 6.9 g/dL (6.5-8.0)
[2025-02-01 06:53] LABS: Hematocrit 39.9 % (42.0-52.0); Hemoglobin 12.7 g/dl (14.0-18.0); Imm Gran Abs Auto 0.02 X10*3/uL (0.00-0.03); Imm Gran Pct Auto 0.4 % (0.0-0.4); Lymphocytes Absolute Auto 1.4 X10*3/uL (1.2-4.9); Mean Corpuscular HGB Conc 31.8 g/dl (31.0-36.0); Mean Corpuscular Hemoglobin 28.7 pg (27.0-33.0); Mean Corpuscular Volume 90.1 fL (80.0-98.0); NRBC Abs Auto 0.000 X10*3/uL (0.0-0.012); NRBC Pct Auto 0.0 /100WBC (0.0-0.2); Platelet Count 147 X10*3/uL (160-400); Red Blood Count 4.43 X10*6/uL (4.60-5.80); White Blood Count 4.8 X10*3/uL (4.8-10.8)
[2025-02-01 07:16] VITALS: BP 149/79; PULSE 60; RESP 16; TEMP 36; O2SAT 97
[2025-02-01 07:37] LABS: Glucose, Whole Blood 64 mg/dL (60-115)
[2025-02-01 09:12] LABS: Glucose, Whole Blood 82 mg/dL (60-115)
[2025-02-01] MEDS: Metoprolol Succinate ER 50 MG TAB.ER.24H PO (09:22)
[2025-02-01 11:25] LABS: Glucose, Whole Blood 125 mg/dL (60-115)
--- NOTE | 2025-02-01 12:03 | MHC.CM.PN ---
Addendum entered by America Siddiqui RN 02/01/25 15:41: Patient completed HCP naming agents 1) sister in law Emily José [phone], 2) brother Denver Fowler [phone] Addendum entered by America Siddiqui RN 02/01/25 12:24: Confirmed w/ [facility] patient has been accepted for outpatient HD slot M/W/F, 12:55 chair time, 12:30 arrival, start date 02/05. [facility] updated. Awaiting insurance auth and transport coordination/auth. Addendum entered by America Siddiqui RN 02/01/25 12:17: Reviewed w/ patient via structural steel ironworker. Verbalized understanding and in agreement w/ plan. Original Note: [facility] has accepted patient. However, they do not have an open HD slot. Per Nephro note, likely can start HD at [facility] on Wednesday. for nephro requesting confirmation. [place] will submit for auth and arrange transport to [facility] HD.
--- NOTE | 2025-02-01 12:18 | PM.PNNEP ---
Subjective Subjective Date of Service: 02/01/25 Interval history: No new events, states he feels better since admission Physical Exam Vital Signs: Vital Signs: Last Vital Signs Temp 96.8 F 02/01/25 07:16 Pulse 60 02/01/25 07:16 Resp 16 02/01/25 07:16 BP 149/79 H 02/01/25 07:16 Pulse Ox 97 02/01/25 07:16 O2 Del Method Room Air 02/01/25 07:16 O2 Flow Rate 2.0 01/31/25 07:20 BMI result Body Mass Index 27.1 General: not in any acute distress, ill appearing Nutritional Appearance: well nourished and overweight Eyes: appearance normal, both eyes and all related structures; Alignment and Position: alignment normal and position normal Neck: No lymphadenopathy, no thyromegaly Resp: bilateral air entry equal, no added sounds present Cardio: Regular rate, regular rhythm; Heart sounds: S1 normal heart sound present and S2 normal heart sound present GI: soft, nontender, no guarding, no hepatosplenomegaly : bladder normal to inspection, bladder normal to palpation, no renal angle tenderness Skin: no rashes or lesions noted and elasticity normal Neuro: alert, oriented x 3, moves all extremities Objective Data Labs 02/01/25 05:44 02/01/25 05:44 Labs: Laboratory Results - last 24 hr 01/31/25 01/31/25 02/01/25 16:07 20:20 05:44 WBC 4.8 RBC 4.43 L Hgb 12.7 L Hct 39.9 L MCV 90.1 MCH 28.7 MCHC 31.8 RDW 16.0 Plt Count 147 L MPV TNP Immature Gran % (Auto) 0.4 Neut % (Auto) 48.9 Lymph % (Auto) 29.3 [place] % (Auto) 13.0 H Eos % (Auto) 7.6 H Baso % (Auto) 0.8 Lymph # (Auto) 1.4 [place] # (Auto) 0.6 Eos # (Auto) 0.4 Baso # (Auto) 0.0 Abs Immat Gran (auto) 0.02 Absolute Neuts (auto) 2.4 Absolute Nucleated RBC 0.000 Nucleated RBC % (auto) 0.0 Sodium 140 Potassium 5.2 H Chloride 104 Carbon Dioxide 26 Anion Gap 15 BUN 44 H Creatinine 5.03 H* Estim Creat Clear Calc 13.3 Estimated GFR 12 POC Glucose 145 H 115 Random Glucose 66 Calcium 9.3 D Magnesium 2.1 Total Bilirubin 0.3 AST 23 ALT 23 Alkaline Phosphatase 75 Total Protein 6.9 Albumin 3.8 02/01/25 02/01/25 02/01/25 07:20 09:08 11:19 WBC RBC Hgb Hct MCV MCH MCHC RDW Plt Count MPV Immature Gran % (Auto) Neut % (Auto) Lymph % (Auto) [place] % (Auto) Eos % (Auto) Baso % (Auto) Lymph # (Auto) [place] # (Auto) Eos # (Auto) Baso # (Auto) Abs Immat Gran (auto) Absolute Neuts (auto) Absolute Nucleated RBC Nucleated RBC % (auto) Sodium Potassium Chloride Carbon Dioxide Anion Gap BUN Creatinine Estim Creat Clear Calc Estimated GFR POC Glucose 64 82 125 H Random Glucose Calcium Magnesium Total Bilirubin AST ALT Alkaline Phosphatase Total Protein Albumin Procedures Date of Service Date of Service: 02/01/25 Assessment & Plan Assessment and plan (1) Essential hypertension: Status: Acute (2) End stage renal disease: Status: Acute Plan 1. Chronic kidney disease stage 5 now progressing to ESRD initiated on maintenance hemodialysis due to symptoms of uremia including weakness fatigue appetite and presenting with hyperkalemia with a potassium of 8.4 For session of dialysis initiated 01/29/2025 emergently for hyperkalemia Underwent 3 sessions of dialysis so far, next session tomorrow which would be a 3.5 hours duration Working on getting him in outpatient dialysis schedule, possibly has a slot MWF in [facility]. Can be discharged on Wednesday post dialysis HD today with goals: duration 3.5 hours UF: 2 L, 4k bath 2. Metabolic bone disease: Calcium 10.0, PTH elevated to 430 pending Vitamin D level possibly needs Zemplar for hyperparathyroidism, will wait till vitamin D levels come back continue calcitriol 125mcg Hyperphosphatemia: phos 6.1, continue sevelamer with meals 3. 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 Hypertension: Hold antihypertensives prior to HD Metoprolol decreased to 50 mg has history of CAD, continue holding off on amlodipine as his blood pressures will be better controlled after maintenance hemodialysis and also risk for hypotension with further volume removal TTE in 01/2022 showed normal LV systolic function but impaired relaxation, decreased RV systolic function 5. Diabetes mellitus: On Jardiance at home sugars well controlled Time Spent With Patient Time: Total time managing care of this patient today ____ minutes. Progress Note: Quality Stroke Does the patient have a stroke diagnosis?: No
[2025-02-01 15:33] VITALS: BP 132/74; PULSE 63; RESP 16; TEMP 36.4; O2SAT 95
[2025-02-01 16:06] VITALS: O2SAT 97
[2025-02-01 16:14] LABS: Glucose, Whole Blood 104 mg/dL (60-115)
--- NOTE | 2025-02-01 17:01 | P.PNIM_ITS ---
Subjective Subjective Date of Service: 02/01/25 Interval History: seen and examined this morning follow up CKD with progression to ESRD and initiation of hemodialysis History obtained with the assistance of a bicycle fitter denies sob Review of Systems Review of Systems: Yes all other systems are reviewed and are negative Constitutional Constitutional: Denies chills and Denies fever(s) Cardiovascular Cardiovascular: Denies chest pain, Denies palpitations and Denies dyspnea Respiratory Respiratory: Denies cough and Denies dyspnea Gastrointestinal Gastrointestinal: Denies abdominal pain, Denies nausea and Denies vomiting Endocrine Endocrine: Denies palpitations Physical Exam 2 Vital Signs: Vital Signs: Last Vital Signs Temp 97.5 F 02/01/25 15:33 Pulse 63 02/01/25 15:33 Resp 16 02/01/25 15:33 BP 132/74 02/01/25 15:33 Pulse Ox 97 02/01/25 16:06 O2 Del Method Room Air 02/01/25 15:33 O2 Flow Rate 2.0 01/31/25 07:20 BMI result Body Mass Index 27.1 Const: General: cooperative, comfortable, no acute distress, alert and awake Nutritional Appearance: average body habitus Orientation/consciousness: p atient oriented x3 Chest: Other: permcath in place Resp: Effort & Inspection: normal respiratory effort, able to speak in complete sentences, no respiratory distress and no use of accessory muscles Cardio: Rate: regular rate GI: Inspection: No distended Palpation (GI): Soft to palpation and nontender Neuro: General: patient oriented x3, moves all extremities and CN's II-XI intact bilaterally Extrem: General: No pedal edema Objective Data Active Medications Acetaminophen (Acetaminophen 325 Mg Tablet) 650 mg PO Q6H PRN PRN Reason: Fever >100.4 Brimonidine Tartrate (Brimonidine Tartrate 0.2% Oph 5 Ml Bottle) 1 drop EYE- BOTH DAILY [facility] Last Admin: 02/01/25 09:22 Dose: 1 drop Documented By: ANURADHA Dextrose (Dextrose 50 % 25 Gm/50 Ml Syringe) 25 gm IVPUSH Q15M PRN; Protocol PRN Reason: per Hypoglycemia Standing Ord. Dorzolamide/Timolol (Dorzolamide/Timolo 2.23%/0.68% 10 Ml Drbtl) 1 drop EYE- LEFT BID [facility] Last Admin: 02/01/25 09:22 Dose: 1 drop Documented By: ANURADHA Glucose (Glucose Gel 15 Gm Gel..Gram.) 15 gm PO Q15M PRN; Protocol PRN Reason: per Hypoglycemia Standing Ord. Heparin Sodium (Porcine) (Heparin Sodium,Porcine 5,000 Unit/Ml Vial) 5,000 unit SUBCUT Q8H [facility] Last Admin: 02/01/25 11:09 Dose: 5,000 unit Documented By: ANURADHA Hydrocortisone (Hydrocortisone 1 % Cream 28.35 Gm Tube) 1 appl TOPICAL TID PRN; Protocol PRN Reason: skin irritation Insulin Human Lispro (Insulin Lispro 100 Unit/Ml 3 Ml Vial) 0 unit SUBCUT QIDACHS [facility]; Protocol Last Admin: 02/01/25 16:27 Dose: Not Given Documented By: ANURADHA Non-Admin Reason: No Insulin Coverage Latanoprost (Latanoprost 0.005 % Ophth Monet 2.5 Ml Drops) 1 drop EYE-LEFT BEDTIME [facility] Last Admin: 01/31/25 20:56 Dose: 1 drop Documented By: ROD Melatonin (Melatonin 3 Mg Tablet) 6 mg PO BEDTIME [facility] Last Admin: 01/31/25 20:54 Dose: 6 mg Documented By: ROD Metoprolol Succinate (Metoprolol Succinate Er 50 Mg Tab.Er.24h) 50 mg PO DAILY [facility]; Protocol Last Admin: 02/01/25 09:22 Dose: 50 mg Documented By: ANURADHA Omeprazole (Omeprazole 40 Mg Capsule.Dr) 40 mg PO DAILY@0630 [facility] Last Admin: 02/01/25 06:17 Dose: 40 mg Documented By: ROD Ondansetron HCl (Ondansetron Hcl 4 Mg/2 Ml Vial) 4 mg IVPUSH Q8H PRN PRN Reason: Nausea and Vomiting Vitamin D (Cholecalciferol (Vitamin D3) 25 Mcg Tablet) 125 mcg PO DAILY [facility] Last Admin: 02/01/25 09:22 Dose: 125 mcg Documented By: ANURADHA Labs 02/01/25 05:44 02/01/25 05:44 Labs: Laboratory Results - last 24 hr 01/31/25 02/01/25 02/01/25 20:20 05:44 07:20 MCV 90.1 MCH 28.7 MCHC 31.8 RDW 16.0 Plt Count 147 L MPV TNP Immature Gran % (Auto) 0.4 Neut % (Auto) 48.9 Lymph % (Auto) 29.3 [place] % (Auto) 13.0 H Eos % (Auto) 7.6 H Baso % (Auto) 0.8 Lymph # (Auto) 1.4 [place] # (Auto) 0.6 Eos # (Auto) 0.4 Baso # (Auto) 0.0 Abs Immat Gran (auto) 0.02 Absolute Neuts (auto) 2.4 Absolute Nucleated RBC 0.000 Nucleated RBC % (auto) 0.0 Anion Gap 15 Estim Creat Clear Calc 13.3 Estimated GFR 12 POC Glucose 115 64 Random Glucose 66 Calcium 9.3 D Magnesium 2.1 Total Bilirubin 0.3 AST 23 ALT 23 Alkaline Phosphatase 75 Total Protein 6.9 Albumin 3.8 02/01/25 02/01/25 02/01/25 09:08 11:19 16:05 MCV MCH MCHC RDW Plt Count MPV Immature Gran % (Auto) Neut % (Auto) Lymph % (Auto) [place] % (Auto) Eos % (Auto) Baso % (Auto) Lymph # (Auto) [place] # (Auto) Eos # (Auto) Baso # (Auto) Abs Immat Gran (auto) Absolute Neuts (auto) Absolute Nucleated RBC Nucleated RBC % (auto) Anion Gap Estim Creat Clear Calc Estimated GFR POC Glucose 82 125 H 104 Random Glucose Calcium Magnesium Total Bilirubin AST ALT Alkaline Phosphatase Total Protein Albumin Assessment and Plan (1) End stage renal disease: Status: Acute Plan This 64-year-old gentleman with PMH of Diabetic nephropathy CKD stage 5, hypertension and ischemic cardiomyopathy presented to the ED with history of 2 weeks of fatigue, decreased appetite and potassium of 8.1 found to have progression of ESRD requiring initiation of HD. ESRD with hyperphosphatemia and hypercalcemia Likely diabetic nephropathy, progression from CKD 5; initiated on HD Nephro following permacath placed 01/30 DC Wednesday post HD session calcium improved continue calcitriol continue sevelamer HyperK improved post HD HTN Cont htn meds ICM Cont home meds DVT px- Heparin DC Wednesday post HD session if he gets a facility which has HD capabilities Quality Stroke Does the patient have a stroke diagnosis?: No VTE Prior VTE?: No VTE Risk Level:: Medical - low VTE Device Contraindication: N/A - Device Ordered VTE Drug Contraindication: N/A - Med Ordered
[2025-02-01 20:00] VITALS: BP 140/63; PULSE 62; RESP 18; TEMP 36.2; O2SAT 95
[2025-02-02 03:26] VITALS: BP 156/78; PULSE 57; RESP 18; TEMP 36; O2SAT 97
[2025-02-02 06:00] VITALS: BMI 27.2
[2025-02-02 06:44] LABS: Alanine Aminotransferase 30 U/L (0-40); Albumin Level 4.0 g/dL (3.5-5.0); Alkaline Phosphatase 76 U/L (39-117); Anion Gap 17 (12-20); Aspartate Amino Transferase 29 U/L (5-37); Blood Urea Nitrogen 56 mg/dL (9-16); Calcium 9.6 mg/dL (8.4-10.2); Carbon Dioxide 24 mmol/L (22-29); Chloride 103 mmol/L (96-108); Creatinine Clr Calc Pharmacy 11.4; Estimated Glomerular Filt Rate 10; Magnesium 2.0 mg/dL (1.6-2.6); Potassium 5.3 mmol/L (3.3-5.1); Sodium 139 mmol/L (135-145); Total Protein 7.3 g/dL (6.5-8.0)
[2025-02-02 07:37] VITALS: BP 142/84; PULSE 64; RESP 18; TEMP 36; O2SAT 95
[2025-02-02 08:03] LABS: Glucose, Whole Blood 69 mg/dL (60-115)
--- NOTE | 2025-02-02 10:54 | PM.PNNEP ---
Subjective Subjective Date of Service: 02/02/25 Interval history: seen and examined this morning follow up CKD with progression to ESRD and initiation of hemodialysis History obtained with the assistance of a aerial photograph interpreter denies sob Physical Exam Vital Signs: Vital Signs: Last Vital Signs Temp 96.8 F 02/02/25 07:37 Pulse 64 02/02/25 07:37 Resp 18 02/02/25 07:37 BP 142/84 H 02/02/25 07:37 Pulse Ox 95 02/02/25 07:37 O2 Del Method Room Air 02/02/25 07:37 O2 Flow Rate 2.0 01/31/25 07:20 BMI result Body Mass Index 27.2 Objective Data Labs 02/01/25 05:44 02/02/25 06:12 Labs: Laboratory Results - last 24 hr 02/01/25 02/01/25 02/01/25 11:19 16:05 21:05 Sodium Potassium Chloride Carbon Dioxide Anion Gap BUN Creatinine Estim Creat Clear Calc Estimated GFR POC Glucose 125 H 104 108 Random Glucose Calcium Magnesium Total Bilirubin AST ALT Alkaline Phosphatase Total Protein Albumin 02/02/25 02/02/25 06:12 07:41 Sodium 139 Potassium 5.3 H Chloride 103 Carbon Dioxide 24 Anion Gap 17 BUN 56 H Creatinine 5.87 H* Estim Creat Clear Calc 11.4 Estimated GFR 10 POC Glucose 69 Random Glucose 66 Calcium 9.6 Magnesium 2.0 Total Bilirubin 0.3 AST 29 ALT 30 Alkaline Phosphatase 76 Total Protein 7.3 Albumin 4.0 Procedures Date of Service Date of Service: 02/02/25 Assessment & Plan Time Spent With Patient Time: Total time managing care of this patient today ____ minutes. Progress Note: Quality Stroke Does the patient have a stroke diagnosis?: No
--- NOTE | 2025-02-02 10:58 | P.PNNPD_ITS ---
Subjective Subjective Date of Service: 02/02/25 This patient was seen during dialysis this morning. He is tolerating the dialysis well so far. Physical Exam Vital Signs: Vital Signs: Last Vital Signs Temp 96.8 F 02/02/25 07:37 Pulse 64 02/02/25 07:37 Resp 18 02/02/25 07:37 BP 142/84 H 02/02/25 07:37 Pulse Ox 95 02/02/25 07:37 O2 Del Method Room Air 02/02/25 07:37 O2 Flow Rate 2.0 01/31/25 07:20 BMI result Body Mass Index 27.2 General: not in any acute distress, chronically ill appearing, comfortable Nutritional Appearance: well nourished and overweight Eyes: appearance normal, both eyes and all related structures; Alignment and Position: alignment normal and position normal Neck: No lymphadenopathy, no thyromegaly Resp: bilateral air entry equal, no added sounds present Cardio: Regular rate, regular rhythm; Heart sounds: S1 normal heart sound present and S2 normal heart sound present GI: soft, nontender, no guarding, no hepatosplenomegaly : bladder normal to inspection, bladder normal to palpation, no renal angle tenderness Skin: no rashes or lesions noted and elasticity normal Neuro: alert, oriented x 3, moves all extremities Assessment & Plan Assessment and plan (1) Essential hypertension: Status: Acute (2) End stage renal disease: Status: Acute (3) Anemia in chronic kidney disease: Status: Acute Plan 1. Chronic kidney disease stage 5 now progressing to ESRD initiated on maintenance hemodialysis due to symptoms of uremia including weakness fatigue appetite and presenting with hyperkalemia with a potassium of 8.4 For session of dialysis initiated 01/29/2025 emergently for hyperkalemia Undergoing hemodialysis this morning which he is tolerating well He has a chair resolved at [facility] at 12:55PM starting 02/05/2025. He is okay for discharge neprhology point of view. HD today with goals: duration 3.5 hours UF: 2 L, 4k bath 2. Metabolic bone disease: Calcium 10.0, PTH elevated to 430 pending Vitamin D level possibly needs Zemplar for hyperparathyroidism, will wait till vitamin D levels come back continue calcitriol 125mcg Hyperphosphatemia: phos 6.1, continue sevelamer 800 mg with meals 3. 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 Hypertension: Hold antihypertensives prior to HD Metoprolol decreased to 50 mg has history of CAD, his blood pressures will be better controlled with maintenance hemodialysis and also risk for hypotension with ultrafiltrate. TTE in 01/2022 showed normal LV systolic function but impaired relaxation, decreased RV systolic function 5. Diabetes mellitus: On Jardiance at home sugars well controlled Time Spent With Patient Time: Total time managing care of this patient today ____ minutes. Procedures Date of Service Date of Service: 02/02/25
[2025-02-02] MEDS: Metoprolol Succinate ER 50 MG TAB.ER.24H PO (13:13)
[2025-02-02] MEDS: Sevelamer Carbonate Tablet 800 MG TABLET PO ×2 (13:13→16:34)
[2025-02-02 13:20] VITALS: BP 139/75; PULSE 75; RESP 16; TEMP 36.3; O2SAT 99
[2025-02-02 13:20] LABS: Glucose, Whole Blood 188 mg/dL (60-115)
--- NOTE | 2025-02-02 15:45 | MHC.CM.PN ---
Addendum entered by Siobhan Sadler 02/04/25 15:35: [facility] RECEIVED AUTH PT DISCHARGED TO STR TODAY AT 1430 VIA [facility] LOPE[facility] CM MET WITH PT WITH COIN WRAPPING MACHINE OPERATOR PT STATING HE THOUGHT HE WOULD GO HOME, BUT THEN AGREEING TO STR HE DID NOT HAVE TRANSPORT TO OUTPATIENT HD HE IS AWARE THE SW AT THE [facility] SHOULD BE NOTIFIED SO TRANSPORT CAN BE ARRANGED PRIOR TO DC FROM STR Original Note: PT IS MEDICALLY CLEARED TO DC TO STR [facility] HAS ARRANGED TRANSPORT TO HD AUTH STILL PENDING
--- NOTE | 2025-02-02 15:51 | P.PNIM_ITS ---
Subjective Subjective Date of Service: 02/02/25 Interval History: seen and examined this morning follow up for ESRD history obtained with the assistance of robotype operator no overnight events; no complaints this am no sob Review of Systems Review of Systems: Yes all other systems are reviewed and are negative Constitutional Constitutional: Denies chills and Denies fever(s) Cardiovascular Cardiovascular: Denies chest pain, Denies palpitations and Denies dyspnea Respiratory Respiratory: Denies cough and Denies dyspnea Gastrointestinal Gastrointestinal: Denies abdominal pain Endocrine Endocrine: Denies palpitations Physical Exam 2 Vital Signs: Vital Signs: Last Vital Signs Temp 97.4 F 02/02/25 13:20 Pulse 75 02/02/25 13:20 Resp 16 02/02/25 13:20 BP 139/75 02/02/25 13:20 Pulse Ox 99 02/02/25 13:20 O2 Del Method Room Air 02/02/25 13:20 O2 Flow Rate 2.0 01/31/25 07:20 BMI result Body Mass Index 27.2 Const: General: cooperative, comfortable, no acute distress, alert and awake Nutritional Appearance: average body habitus Orientation/consciousness: p atient oriented x3 Chest: Other: permcath in place Resp: Effort & Inspection: normal respiratory effort, able to speak in complete sentences, no respiratory distress and no use of accessory muscles Cardio: Rate: regular rate GI: Inspection: No distended Palpation (GI): Soft to palpation and nontender Neuro: General: patient oriented x3, moves all extremities and CN's II-XI intact bilaterally Extrem: General: No pedal edema Objective Data Active Medications Acetaminophen (Acetaminophen 325 Mg Tablet) 650 mg PO Q6H PRN PRN Reason: Fever >100.4 Brimonidine Tartrate (Brimonidine Tartrate 0.2% Oph 5 Ml Bottle) 1 drop EYE- BOTH DAILY [facility] Last Admin: 02/02/25 09:05 Dose: Not Given Documented By: ANURADHA Non-Admin Reason: Off unit: Dialysis Dextrose (Dextrose 50 % 25 Gm/50 Ml Syringe) 25 gm IVPUSH Q15M PRN; Protocol PRN Reason: per Hypoglycemia Standing Ord. Dorzolamide/Timolol (Dorzolamide/Timolo 2.23%/0.68% 10 Ml Drbtl) 1 drop EYE- LEFT BID [facility] Last Admin: 02/02/25 09:05 Dose: Not Given Documented By: ANURADHA Non-Admin Reason: Off unit: Dialysis Glucose (Glucose Gel 15 Gm Gel..Gram.) 15 gm PO Q15M PRN; Protocol PRN Reason: per Hypoglycemia Standing Ord. Heparin Sodium (Porcine) (Heparin Sodium,Porcine 5,000 Unit/Ml Vial) 5,000 unit SUBCUT Q8H [facility] Last Admin: 02/02/25 13:13 Dose: 5,000 unit Documented By: ANURADHA Hydrocortisone (Hydrocortisone 1 % Cream 28.35 Gm Tube) 1 appl TOPICAL TID PRN; Protocol PRN Reason: skin irritation Insulin Human Lispro (Insulin Lispro 100 Unit/Ml 3 Ml Vial) 0 unit SUBCUT QIDACHS [facility]; Protocol Last Admin: 02/02/25 13:37 Dose: Not Given Documented By: ANURADHA Non-Sean Reason: Off unit: Dialysis Latanoprost (Latanoprost 0.005 % Ophth Monet 2.5 Ml Drops) 1 drop EYE-LEFT BEDTIME [facility] Last Admin: 02/01/25 21:47 Dose: 1 drop Documented By: ROD Melatonin (Melatonin 3 Mg Tablet) 6 mg PO BEDTIME [facility] Last Admin: 02/01/25 21:46 Dose: 6 mg Documented By: ROD Metoprolol Succinate (Metoprolol Succinate Er 50 Mg Tab.Er.24h) 50 mg PO DAILY [facility]; Protocol Last Admin: 02/02/25 13:13 Dose: 50 mg Documented By: ANURADHA Omeprazole (Omeprazole 40 Mg Capsule.) 40 mg PO DAILY@0630 [facility] Last Admin: 02/02/25 05:58 Dose: 40 mg Documented By: ROD Ondansetron HCl (Ondansetron Hcl 4 Mg/2 Ml Vial) 4 mg IVPUSH Q8H PRN PRN Reason: Nausea and Vomiting Sevelamer Carbonate (Sevelamer Carbonate Tablet 800 Mg Tablet) 800 mg PO TIDWM [facility] Last Admin: 02/02/25 13:13 Dose: 800 mg Documented By: ANURADHA Vitamin D (Cholecalciferol (Vitamin D3) 25 Mcg Tablet) 125 mcg PO DAILY [facility] Last Admin: 02/02/25 09:05 Dose: Not Given Documented By: ANURADHA Non-Admin Reason: Off unit: Dialysis Labs 12/04/25 05:44 02/02/25 06:12 Labs: Laboratory Results - last 24 hr 02/01/25 02/01/25 02/02/25 16:05 21:05 06:12 Anion Gap 17 Estim Creat Clear Calc 11.4 Estimated GFR 10 POC Glucose 104 108 Random Glucose 66 Calcium 9.6 Magnesium 2.0 Total Bilirubin 0.3 AST 29 ALT 30 Alkaline Phosphatase 76 Total Protein 7.3 Albumin 4.0 02/02/25 02/02/25 07:41 13:17 Anion Gap Estim Creat Clear Calc Estimated GFR POC Glucose 69 188 H Random Glucose Calcium Magnesium Total Bilirubin AST ALT Alkaline Phosphatase Total Protein Albumin Assessment and Plan (1) End stage renal disease: Status: Acute Plan This 64-year-old gentleman with PMH of Diabetic nephropathy CKD stage 5, hypertension and ischemic cardiomyopathy presented to the ED with history of 2 weeks of fatigue, decreased appetite and potassium of 8.1 found to have progression of ESRD requiring initiation of HD. ESRD with hyperphosphatemia and hypercalcemia Likely diabetic nephropathy, progression from CKD 5; initiated on HD 01/29 due to uremia and hyperkalemia Nephro following permacath placed 01/30 calcium improved continue sevelamer last HD session today He has a chair resolved at [facility] at 12:55PM starting 02/05/2025 HyperK improved post HD HTN Cont htn meds ICM Cont home meds DVT px- Heparin dispo - seen by PT rec STR dispo: awaiting insurance authorization for STR Quality Stroke Does the patient have a stroke diagnosis?: No VTE Prior VTE?: No VTE Risk Level:: Medical - low VTE Device Contraindication: N/A - Device Ordered VTE Drug Contraindication: N/A - Med Ordered
[2025-02-02 15:54] VITALS: BP 120/70; PULSE 60; RESP 16; TEMP 36; O2SAT 98
--- NOTE | 2025-02-02 15:56 | PM.DS ---
DS: Providers Provider Date of admission: 01/29/25 18:31 Primary care physician: Edilia Banks MD Consults: 01/31/25 10:34 Consult to Nephrology Routine Consulting Provider: [facility] Reason for consultation: ESRD DS: Diagnosis Discharge Diagnosis (1) End stage renal disease: Status: Acute DS: Summary Hospital Course Hospital Course: From H&P on the day of admission 64-year-old gentleman with PMH of CKD stage 5 secondary to diabetes mellitus, hypertension and ischemic cardiomyopathy presented to the ED with history of 2 weeks of fatigue, decreased appetite and hyperkalemic to 8.1. Patient is following Dr. Horton in [facility] and is known to have CKD stage 5. A month ago he was in [facility] and had developed significant symptoms of uremia for which he had seen a hog raiser in [facility]. Since the past 2 weeks patient developed bilateral lower extremity swelling along with fatigue and weakness. For the 4 or 5 days he developed decreased appetite, decreased thirst. The presented to the ED with weakness, fatigue and his potassium was noted to be 8.1 so initiated on renal replacement therapy. Apparently patient lives alone by himself at home, he is from his and has some brothers in the town. ESRD with hyperphosphatemia and hypercalcemia Likely diabetic nephropathy, progression from CKD 5; initiated on HD 01/29 due to uremia and hyperkalemia. Permacath was placed 01/30. calcium improved, hyperkalemia improved. continue sevelamer. Last HD session 02/02 He has a chair resolved at [facility] at 12:55PM starting 02/05/2025 seen by PT, recommend STR. Time Attestation Discharge Coordination Time (in mins): 36 Quality: Stroke Does the patient have a stroke diagnosis?: No Physical Exam Vital Signs: Vital Signs: Last Vital Signs Temp 97.4 F 02/02/25 13:20 Pulse 75 02/02/25 13:20 Resp 16 02/02/25 13:20 BP 139/75 02/02/25 13:20 Pulse Ox 99 02/02/25 13:20 O2 Del Method Room Air 02/02/25 13:20 O2 Flow Rate 2.0 01/31/25 07:20 BMI result Body Mass Index 27.2 Const: General: cooperative, comfortable, no acute distress, alert and awake Nutritional Appearance: average body habitus Orientation/consciousness: patient oriented x3 Chest: Other: permcath in place Resp: Effort & Inspection: normal respiratory effort, able to speak in complete sentences, no respiratory distress and no use of accessory muscles Cardio: Rate: regular rate GI: Inspection: No distended Palpation (GI): Soft to palpation and nontender Neuro: General: patient oriented x3, moves all extremities and CN's II-XI intact bilaterally Extrem: General: No pedal edema DS: Data Data Completed and Pending Labs on day of discharge: Laboratory Results - last 24 hr 02/01/25 02/01/25 02/02/25 16:05 21:05 06:12 Sodium 139 Potassium 5.3 H Chloride 103 Carbon Dioxide 24 Anion Gap 17 BUN 56 H Creatinine 5.87 H* Estim Creat Clear Calc 11.4 Estimated GFR 10 POC Glucose 104 108 Random Glucose 66 Calcium 9.6 Magnesium 2.0 Total Bilirubin 0.3 AST 29 ALT 30 Alkaline Phosphatase 76 Total Protein 7.3 Albumin 4.0 02/02/25 02/02/25 07:41 13:17 Sodium Potassium Chloride Carbon Dioxide Anion Gap BUN Creatinine Estim Creat Clear Calc Estimated GFR POC Glucose 69 188 H Random Glucose Calcium Magnesium Total Bilirubin AST ALT Alkaline Phosphatase Total Protein Albumin Discharge Plan Discharge Patient Disposition: [facility] Discharge Diagnosis: ESRD now on HD hyperkalemia Referrals: Edilia Keenan MD [Primary Care Provider, Internal Medicine] - 1 Week Discharge Medications: New sevelamer carbonate 800 mg Tablet 800 mg PO TIDWM 90 Days Qty: 270 0RF Continued amlodipine 5 mg tablet 5 mg PO DAILY Qty: 90 1RF metoprolol succinate 100 mg tablet extended release 24 hr 100 mg PO DAILY 90 Days Qty: 90 5RF latanoprost 0.005 % drops 1 drp ophthalmic-Left BEDTIME Jardiance 10 mg Tablet 10 mg PO DAILY brimonidine 0.2 % drops 1 drp ophthalmic (eye) DAILY hydrocortisone [Anti-Itch (HC)] 1 % cream 1 appl topical TID PRN (Reason: skin irritation) 14 Days Qty: 28.4 0RF dorzolamide-timolol 22.3-6.8 mg/mL drops 1 drp ophthalmic-Left BID cholecalciferol (vitamin D3) 125 mcg (5,000 unit) capsule 125 mcg PO DAILY [place] 3-6-9 1,200 mg capsule 1 cap PO DAILY No Action (DME) lancing device Misc See Rx Instructions .ROUTE .MEDSUPPLY Qty: 1 0RF Rx Instructions: As directed (DME) blood-glucose meter [FreeStyle [place] Lite] Kit See Rx Instructions .ROUTE .MEDSUPPLY Qty: 1 0RF Rx Instructions: As directed (DME) lancets [FreeStyle Lancets] 28 gauge misc See Rx Instructions .ROUTE .MEDSUPPLY Qty: 100 11RF Rx Instructions: As directed three time a day (DME) FreeStyle Lite Strips Strip See Rx Instructions .ROUTE .MEDSUPPLY Qty: 100 11RF Rx Instructions: As directed three times a day Activity on Discharge: As tolerated Stand Alone Forms: Patient Portal Discharge page Print Language: Algerian Care Plan Goals: see below Health Concerns: CKD progressing to ESRD requiring HD Plan of Treatment: take sevelemer as prescribed follow up with nephrology attend HD Assessment: see discharge summary
[2025-02-02 16:20] LABS: Glucose, Whole Blood 182 mg/dL (60-115)
[2025-02-02 19:47] VITALS: BP 129/72; PULSE 57; RESP 18; TEMP 36.6; O2SAT 96
[2025-02-02 20:01] LABS: Glucose, Whole Blood 86 mg/dL (60-115)
[2025-02-03 03:44] VITALS: BP 131/70; PULSE 58; RESP 18; TEMP 36; O2SAT 98
[2025-02-03 06:00] VITALS: BMI 27.0
[2025-02-03 06:22] LABS: Alanine Aminotransferase 51 U/L (0-40); Albumin Level 3.7 g/dL (3.5-5.0); Alkaline Phosphatase 79 U/L (39-117); Anion Gap 15 (12-20); Aspartate Amino Transferase 47 U/L (5-37); Blood Urea Nitrogen 40 mg/dL (9-16); Calcium 9.0 mg/dL (8.4-10.2); Carbon Dioxide 26 mmol/L (22-29); Chloride 100 mmol/L (96-108); Creatinine Clr Calc Pharmacy 13.2; Estimated Glomerular Filt Rate 11; Magnesium 2.1 mg/dL (1.6-2.6); Potassium 4.3 mmol/L (3.3-5.1); Sodium 137 mmol/L (135-145); Total Protein 6.6 g/dL (6.5-8.0)
[2025-02-03 07:32] VITALS: BP 149/83; PULSE 65; RESP 18; TEMP 36.6; O2SAT 97
[2025-02-03 07:39] LABS: Glucose, Whole Blood 85 mg/dL (60-115)
--- NOTE | 2025-02-03 08:00 | P.PNIM_ITS ---
Subjective Subjective Date of Service: 02/04/25 Interval History: seen and examined this morning follow up for ESRD No new issues Physical Exam 2 Vital Signs: Vital Signs: Last Vital Signs Temp 97.9 F 02/03/25 07:32 Pulse 65 02/03/25 07:32 Resp 18 02/03/25 07:32 BP 149/83 H 02/03/25 07:32 Pulse Ox 97 02/03/25 07:32 O2 Del Method Room Air 02/03/25 07:32 O2 Flow Rate 2.0 01/31/25 07:20 BMI result Body Mass Index 27.0 Const: General: cooperative, comfortable, no acute distress, alert and awake Nutritional Appearance: average body habitus Orientation/consciousness: p atient oriented x3 Chest: Other: permcath in place Resp: Effort & Inspection: normal respiratory effort, able to speak in complete sentences, no respiratory distress and no use of accessory muscles Cardio: Rate: regular rate GI: Inspection: No distended Palpation (GI): Soft to palpation and nontender Neuro: General: patient oriented x3, moves all extremities and CN's II-XI intact bilaterally Extrem: General: No pedal edema Objective Data Active Medications Acetaminophen (Acetaminophen 325 Mg Tablet) 650 mg PO Q6H PRN PRN Reason: Fever >100.4 Brimonidine Tartrate (Brimonidine Tartrate 0.2% Oph 5 Ml Bottle) 1 drop EYE- BOTH DAILY [facility] Last Admin: 02/02/25 09:05 Dose: Not Given Documented By: ANURADHA Non-Admin Reason: Off unit: Dialysis Dextrose (Dextrose 50 % 25 Gm/50 Ml Syringe) 25 gm IVPUSH Q15M PRN; Protocol PRN Reason: per Hypoglycemia Standing Ord. Dorzolamide/Timolol (Dorzolamide/Timolo 2.23%/0.68% 10 Ml Drbtl) 1 drop EYE- LEFT BID [facility] Last Admin: 02/02/25 21:44 Dose: 1 drop Documented By: SID Glucose (Glucose Gel 15 Gm Gel..Gram.) 15 gm PO Q15M PRN; Protocol PRN Reason: per Hypoglycemia Standing Ord. Heparin Sodium (Porcine) (Heparin Sodium,Porcine 5,000 Unit/Ml Vial) 5,000 unit SUBCUT Q8H [facility] Last Admin: 02/03/25 03:23 Dose: 5,000 unit Documented By: SID Hydrocortisone (Hydrocortisone 1 % Cream 28.35 Gm Tube) 1 appl TOPICAL TID PRN; Protocol PRN Reason: skin irritation Insulin Human Lispro (Insulin Lispro 100 Unit/Ml 3 Ml Vial) 0 unit SUBCUT QIDACHS [facility]; Protocol Last Admin: 02/03/25 07:48 Dose: Not Given Documented By: AMERICO Non-Admin Reason: No Insulin Coverage Latanoprost (Latanoprost 0.005 % Ophth Monet 2.5 Ml Drops) 1 drop EYE-LEFT BEDTIME [facility] Last Admin: 02/02/25 21:44 Dose: 1 drop Documented By: SID Melatonin (Melatonin 3 Mg Tablet) 6 mg PO BEDTIME [facility] Last Admin: 02/02/25 21:41 Dose: 6 mg Documented By: SID Metoprolol Succinate (Metoprolol Succinate Er 50 Mg Tab.Er.24h) 50 mg PO DAILY [facility]; Protocol Last Admin: 02/02/25 13:13 Dose: 50 mg Documented By: ANURADHA Omeprazole (Omeprazole 40 Mg Capsule.Dr) 40 mg PO DAILY@0630 [facility] Last Admin: 02/03/25 05:45 Dose: 40 mg Documented By: SID Ondansetron HCl (Ondansetron Hcl 4 Mg/2 Ml Vial) 4 mg IVPUSH Q8H PRN PRN Reason: Nausea and Vomiting Sevelamer Carbonate (Sevelamer Carbonate Tablet 800 Mg Tablet) 800 mg PO TIDWM [facility] Last Admin: 02/02/25 16:34 Dose: 800 mg Documented By: ANURADHA Vitamin D (Cholecalciferol (Vitamin D3) 25 Mcg Tablet) 125 mcg PO DAILY [facility] Last Admin: 02/02/25 09:05 Dose: Not Given Documented By: ANURADHA Non-Admin Reason: Off unit: Dialysis Labs 02/01/25 05:44 02/04/25 05:41 Labs: Laboratory Results - last 24 hr 02/02/25 02/02/25 02/02/25 07:41 13:17 15:59 Anion Gap Estim Creat Clear Calc Estimated GFR POC Glucose 69 188 H 182 H Random Glucose Calcium Magnesium Total Bilirubin AST ALT Alkaline Phosphatase Total Protein Albumin 02/02/25 02/03/25 02/03/25 19:57 05:47 07:34 Anion Gap 15 Estim Creat Clear Calc 13.2 Estimated GFR 11 POC Glucose 86 85 Random Glucose 83 Calcium 9.0 D Magnesium 2.1 Total Bilirubin 0.2 AST 47 H ALT 51 H Alkaline Phosphatase 79 Total Protein 6.6 Albumin 3.7 Assessment and Plan (1) End stage renal disease: Status: Acute (2) Type 2 diabetes mellitus with other diabetic kidney complication: Status: Acute Plan This 64-year-old gentleman with PMH of Diabetic nephropathy CKD stage 5, hypertension and ischemic cardiomyopathy presented to the ED with history of 2 weeks of fatigue, decreased appetite and potassium of 8.1 found to have progression of ESRD requiring initiation of HD. ESRD with hyperphosphatemia and hypercalcemia Likely diabetic nephropathy, progression from CKD 5; initiated on HD 01/29 due to uremia and hyperkalemia Nephro following permacath placed 01/30 calcium improved continue sevelamer last HD session 02/02 He has a chair reserved at [facility] at 12:55PM starting 02/05/2025 HyperK improved post HD HTN Cont htn meds ICM Cont home meds DVT px- Heparin dispo - seen by PT rec STR dispo: awaiting insurance authorization for STR Quality Stroke Does the patient have a stroke diagnosis?: No VTE Prior VTE?: No VTE Risk Level:: Medical - low VTE Device Contraindication: N/A - Device Ordered VTE Drug Contraindication: N/A - Med Ordered
[2025-02-03] MEDS: Sevelamer Carbonate Tablet 800 MG TABLET PO ×3 (08:45→16:48)
[2025-02-03] MEDS: Metoprolol Succinate ER 50 MG TAB.ER.24H PO (08:57)
[2025-02-03 11:06] LABS: Glucose, Whole Blood 112 mg/dL (60-115)
[2025-02-03 15:06] VITALS: BP 159/80; PULSE 62; RESP 16; TEMP 36.7; O2SAT 94
[2025-02-03 15:15] VITALS: BP 148/72
[2025-02-03 16:30] LABS: Glucose, Whole Blood 81 mg/dL (60-115)
[2025-02-03 19:58] VITALS: BP 155/88; PULSE 60; RESP 16; TEMP 36; O2SAT 95
[2025-02-03 21:12] LABS: Glucose, Whole Blood 94 mg/dL (60-115)
[2025-02-04 03:25] VITALS: BP 158/77; PULSE 53; RESP 18; TEMP 36.3; O2SAT 94
[2025-02-04 06:25] LABS: Alanine Aminotransferase 57 U/L (0-40); Albumin Level 3.8 g/dL (3.5-5.0); Alkaline Phosphatase 67 U/L (39-117); Anion Gap 18 (12-20); Aspartate Amino Transferase 49 U/L (5-37); Blood Urea Nitrogen 60 mg/dL (9-16); Calcium 9.3 mg/dL (8.4-10.2); Carbon Dioxide 20 mmol/L (22-29); Chloride 103 mmol/L (96-108); Creatinine Clr Calc Pharmacy 10.6; Estimated Glomerular Filt Rate 9; Magnesium 2.2 mg/dL (1.6-2.6); Potassium 4.3 mmol/L (3.3-5.1); Sodium 137 mmol/L (135-145); Total Protein 6.8 g/dL (6.5-8.0)
[2025-02-04 07:25] VITALS: BP 166/96; PULSE 65; RESP 18; TEMP 36.8; O2SAT 96
[2025-02-04 07:33] LABS: Glucose, Whole Blood 60 mg/dL (60-115)
[2025-02-04 08:06] LABS: Glucose, Whole Blood 94 mg/dL (60-115)
[2025-02-04] MEDS: Metoprolol Succinate ER 50 MG TAB.ER.24H PO (08:06)
[2025-02-04] MEDS: Sevelamer Carbonate Tablet 800 MG TABLET PO ×2 (08:06→11:36)
[2025-02-04 11:20] LABS: Glucose, Whole Blood 118 mg/dL (60-115)
--- NOTE | 2025-02-04 12:37 | P.DS_ITS ---
DS: Providers Provider Date of Service: 02/04/25 Date of admission: 01/29/25 18:31 Date of discharge: 02/04/25 Primary care physician: Edilia Banks MD Consults: 01/31/25 10:34 Consult to Nephrology Routine Consulting Provider: [facility] [place] Reason for consultation: ESRD DS: Diagnosis Discharge Diagnosis (1) End stage renal disease: Status: Acute (2) Type 2 diabetes mellitus with other diabetic kidney complication: Status: Acute DS: Summary Hospital Course Hospital Course: From H&P on the day of admission 64-year-old gentleman with PMH of CKD stage 5 secondary to diabetes mellitus, hypertension and ischemic cardiomyopathy presented to the ED with history of 2 weeks of fatigue, decreased appetite and hyperkalemic to 8.1. Patient is following Dr. Horton in [facility] and is known to have CKD stage 5. A month ago he was in [facility] and had developed significant symptoms of uremia for which he had seen a certified massage therapist in [facility]. Since the past 2 weeks patient developed bilateral lower extremity swelling along with fatigue and weakness. For the 4 or 5 days he developed decreased appetite, decreased thirst. The presented to the ED with weakness, fatigue and his potassium was noted to be 8.1 so initiated on renal replacement therapy. Apparently patient lives alone by himself at home, he is from his and has some brothers in the town. ESRD with hyperphosphatemia and hypercalcemia Likely diabetic nephropathy, progression from CKD 5; initiated on HD 01/29 due to uremia and hyperkalemia. Permacath was placed 01/30. calcium improved, hyperkalemia improved. continue sevelamer. Last HD session 02/02 He has a chair resolved at [facility] at 12:55PM starting 02/05/2025 seen by PT, recommend STR. Time Attestation Discharge Coordination Time (in mins): 45 Quality: Safe Use of Opioids Does Pt have an Active Cancer Diagnosis on the Problem List?: No Quality: Stroke Does the patient have a stroke diagnosis?: No Physical Exam Vital Signs: Vital Signs: Last Vital Signs Temp 98.2 F 02/04/25 07:25 Pulse 65 02/04/25 07:25 Resp 18 02/04/25 07:25 BP 166/96 H 02/04/25 07:25 Pulse Ox 96 02/04/25 07:25 O2 Del Method Room Air 02/04/25 07:25 O2 Flow Rate 2.0 01/31/25 07:20 BMI result Body Mass Index 27.0 General: not in any acute distress, ill appearing Resp: bilateral air entry equal, no added sounds present Cardio: Regular rate, regular rhythm; Heart sounds: S1 normal heart sound present and S2 normal heart sound present GI: soft, nontender, no guarding, no hepatosplenomegaly Skin- permacath + DS: Data Data Completed and Pending Labs on day of discharge: Laboratory Results - last 24 hr 02/03/25 02/03/25 02/04/25 16:25 21:06 05:41 Hold Purple Top SEE NOTE Sodium 137 Potassium 4.3 Chloride 103 Carbon Dioxide 20 L Anion Gap 18 BUN 60 H Creatinine 6.32 H* Estim Creat Clear Calc 10.6 Estimated GFR 9 POC Glucose 81 94 Random Glucose 68 Calcium 9.3 Magnesium 2.2 Total Bilirubin 0.2 AST 49 H ALT 57 H Alkaline Phosphatase 67 Total Protein 6.8 Albumin 3.8 02/04/25 02/04/25 02/04/25 07:29 08:02 11:13 Hold Purple Top Sodium Potassium Chloride Carbon Dioxide Anion Gap BUN Creatinine Estim Creat Clear Calc Estimated GFR POC Glucose 60 94 118 H Random Glucose Calcium Magnesium Total Bilirubin AST ALT Alkaline Phosphatase Total Protein Albumin Discharge Plan Discharge Anticipated Discharge Date/Time: 02/04/25 12:34 Patient Disposition: Xfer SNF Discharge Diagnosis: ESRD now on HD hyperkalemia Referrals: Edilia Keenan MD [Primary Care Provider, Internal Medicine] - 1 Week Discharge Medications: New sevelamer carbonate 800 mg Tablet 800 mg PO TIDWM 90 Days Qty: 270 0RF insulin lispro [Admelog U-100 Insulin lispro] 100 unit/mL Solution See Protocol subcut QIDACHS MDD 50 Qty: 3 0RF Protocol: Insulin Correction Scale Less than or equal to 110 ---- Give (units): 0 111 to 150 Give (units): 0 151 to 200 Give (units): 2 201 to 250 Give (units): 4 251 to 300 Give (units): 6 301 to 350 Give (units): 8 Greater than 350 Give (units): 10 Call MD if Blood Glucose > : 350 Rx Instructions: BG <111 0 units, 111-150 - 0 units, 151-200 2 units, 201-250 4 units, 251-300 6 units, 301-350 8 units, >350 10 units melatonin 3 mg Tablet 6 mg PO BEDTIME Qty: 20 0RF Continued amlodipine 5 mg tablet 5 mg PO DAILY Qty: 90 1RF metoprolol succinate 100 mg tablet extended release 24 hr 100 mg PO DAILY 90 Days Qty: 90 5RF latanoprost 0.005 % drops 1 drp ophthalmic-Left BEDTIME Jardiance 10 mg Tablet 10 mg PO DAILY brimonidine 0.2 % drops 1 drp ophthalmic (eye) DAILY hydrocortisone [Anti-Itch (HC)] 1 % cream 1 appl topical TID PRN (Reason: skin irritation) 14 Days Qty: 28.4 0RF dorzolamide-timolol 22.3-6.8 mg/mL drops 1 drp ophthalmic-Left BID cholecalciferol (vitamin D3) 125 mcg (5,000 unit) capsule 125 mcg PO DAILY [place] 3-6-9 1,200 mg capsule 1 cap PO DAILY No Action (DME) lancing device Misc See Rx Instructions .ROUTE .MEDSUPPLY Qty: 1 0RF Rx Instructions: As directed (DME) blood-glucose meter [FreeStyle Brandon Lite] Kit See Rx Instructions .ROUTE .MEDSUPPLY Qty: 1 0RF Rx Instructions: As directed (DME) lancets [FreeStyle Lancets] 28 gauge misc See Rx Instructions .ROUTE .MEDSUPPLY Qty: 100 11RF Rx Instructions: As directed three time a day (DME) FreeStyle Lite Strips Strip See Rx Instructions .ROUTE .MEDSUPPLY Qty: 100 11RF Rx Instructions: As directed three times a day Discharge Orders: Discharge Order (Routine); Ordered 02/04/25 Ordered By: Luis Romero Activity on Discharge: As tolerated Stand Alone Forms: Patient Portal Discharge page Print Language: Tongan Care Plan Goals: see below Health Concerns: CKD progressing to ESRD requiring HD Plan of Treatment: take sevelemer as prescribed follow up with nephrology attend dialysis as scheduled and follow up with your Doctor in a week Assessment: see discharge summary
[2025-02-04 14:54] VITALS: BP 117/71; PULSE 64; RESP 16; TEMP 36.6; O2SAT 97
[2025-02-05 06:28] LABS: Vitamin D 25-OH, D2 <4 ng/mL; Vitamin D 25-OH, D3 52 ng/mL; Vitamin D 25-OH, Total 52 ng/mL (30-100)
== END 2025-02-04 15:17 | disposition skilled nursing facility (03) | DRG 675 ==
LOC: HO.ED 16:48 → HO.EDOVER 18:37 → HO.ICU 19:50 → HO.S3 01-30 13:10
PROVIDERS: Physician Assistant Medical; Registered Nurse Community Health; Registered Nurse Emergency; Student in an Organized Health Care Education/Training Program; Admitting Provider Internal Medicine Critical Care Medicine; Emergency Provider Emergency Medicine Emergency Medical Services; PCP Internal Medicine; Visit Provider Internal Medicine
DX: I12.0 Hypertensive chronic kidney disease with stage 5 chronic kidney disease or end stage renal disease (principal); I25.10 Atherosclerotic heart disease of native coronary artery without angina pectoris; E87.5 Hyperkalemia; I25.5 Ischemic cardiomyopathy; E83.51 Hypocalcemia; N25.0 Renal osteodystrophy; D63.1 Anemia in chronic kidney disease; E11.22 Type 2 diabetes mellitus with diabetic chronic kidney disease; E83.39 Other disorders of phosphorus metabolism; N18.6 End stage renal disease; Z99.2 Dependence on renal dialysis; Z20.822 Contact with and (suspected) exposure to COVID-19; Z95.1 Presence of aortocoronary bypass graft; Z87.891 Personal history of nicotine dependence; Z79.899 Other long term (current) drug therapy
CPT/HCPCS: 36415; 36558; 71045; 71046; 76937; 80048; 80053; 81001; 82306; 82803; 82947; 83735; 83880; 83970; 84100; 84484; 85025; 86704; 86706; 87340; 87637; 90999; 93005; 94640; 97110; 97162; 97530; 99285; C1750; C1769; J1644; J1938; J2003; J2543; J3010

== ENCOUNTER → 2025-01-29 13:38 | Outpatient (BNV) | payer MEDICARE, MEDICAID, SELFPAY | PROVIDERS: Admitting Provider Internal Medicine Critical Care Medicine; Emergency Provider Emergency Medicine Emergency Medical Services; PCP Internal Medicine; Visit Provider Internal Medicine | DX: I44.0 Atrioventricular block, first degree (principal); I25.2 Old myocardial infarction | CPT/HCPCS: 93010 ==

== ENCOUNTER → 2025-01-29 13:58 | Outpatient (BNV) | payer MEDICARE, MEDICAID, SELFPAY | PROVIDERS: Emergency Provider Emergency Medicine Emergency Medical Services; PCP Internal Medicine; Visit Provider Radiology Diagnostic Radiology | DX: R06.00 Dyspnea, unspecified (principal); Z45.2 Encounter for adjustment and management of vascular access device; R91.8 Other nonspecific abnormal finding of lung field | CPT/HCPCS: 71045; 71046 ==

== ENCOUNTER 2025-01-29 18:31 | Outpatient (BNV) | payer MEDICARE, MEDICAID, SELFPAY | END 2025-01-30 13:17 | PROVIDERS: Admitting Provider Internal Medicine Critical Care Medicine; Emergency Provider Emergency Medicine Emergency Medical Services; PCP Internal Medicine | DX: N18.6 End stage renal disease (principal) | CPT/HCPCS: 36558; 76937 ==

== ENCOUNTER → 2025-01-29 18:31 | Outpatient (BNV) | payer MEDICARE, MEDICAID, SELFPAY | PROVIDERS: Admitting Provider Internal Medicine Critical Care Medicine; Emergency Provider Emergency Medicine Emergency Medical Services; PCP Internal Medicine; Visit Provider Internal Medicine Critical Care Medicine | DX: I12.0 Hypertensive chronic kidney disease with stage 5 chronic kidney disease or end stage renal disease (principal); N18.6 End stage renal disease | CPT/HCPCS: 99233 ==

== ENCOUNTER → 2025-01-29 18:31 | Outpatient (BNV) | payer MEDICARE, MEDICAID, SELFPAY | PROVIDERS: Admitting Provider Internal Medicine Critical Care Medicine; Emergency Provider Emergency Medicine Emergency Medical Services; PCP Internal Medicine; Visit Provider Student in an Organized Health Care Education/Training Program | DX: N18.6 End stage renal disease (principal); E87.5 Hyperkalemia; Z99.2 Dependence on renal dialysis | CPT/HCPCS: 99232; 99233; 99499 ==

== ENCOUNTER → 2025-01-29 23:59 | Outpatient (BNV) | payer MEDICARE, MEDICAID, SELFPAY | PROVIDERS: PCP Internal Medicine; Visit Provider Internal Medicine Nephrology | DX: N18.6 End stage renal disease (principal) | CPT/HCPCS: 90960 ==